=== PATIENT | female | born 1945 | race Caucasian/White ===

== ENCOUNTER 2019-09-18 15:58 | Emergency (ER) | payer MEDICARE, OTHER ==
[~2019-09-18] VITALS: Ht 162.6 cm; Wt 54.4 kg
[2019-09-18] MEDS ORDERED: SODIUM CHLORIDE 0.9% 500 ML IVB ONE (16:17)
[2019-09-18 16:58] LABS: Basophils # (auto) 0 uL; Basophils % (auto) 0.7 % (0.0-2.0); Eosinophils # (auto) 0.1 uL; Eosinophils % (auto) 2.9 % (0.0-7.0); Hematocrit 37.7 % (36.0-46.0); Lymphocytes # (auto) 0.8 uL; Lymphocytes % (auto) 18.9 % (10.0-50.0); Mean Corpuscular Hemoglobin 27.3 pg (28.0-32.0); Mean Corpuscular Hgb Conc. 31.9 g/dL (32.0-36.0); Mean Corpuscular Volume 85.6 fL (80.0-100.0); Monocytes # (auto) 0.2 uL; Monocytes % (auto) 5.8 % (0.0-12.0); Neutrophils # (auto) 2.9 uL; Neutrophils % (auto) 71.7 % (37.0-80.0); Nucleated Red Blood Cells % 0.1 %; Platelet Count (auto) 202 10^3/uL (140-450); Red Cell Distribution Width 14.2 % (11.8-14.3)
[2019-09-18 17:13] LABS: Albumin 2.9 g/dL (3.4-5.0); Anion Gap 6 (5-15); Blood Urea Nitrogen 25 mg/dL (7-18); Calcium 8.5 mg/dL (8.5-10.1); Carbon Dioxide 24 mmol/L (21-32); Chloride 108 mmol/L (98-107); Glucose 338 mg/dL (74-106); Magnesium 2.3 mg/dL (1.6-2.6); Potassium 4.8 mmol/L (3.5-5.1); Sodium 138 mmol/L (136-145)
[2019-09-18 17:14] LABS: INR 1.06 (0.9-1.15); Partial Thromboplastin Time 26.2 sec (23.64-32.05)
[2019-09-18 17:17] LABS: Lactic Acid w/Reflex 3.4 mmol/L (0.4-2.0)
[2019-09-18 17:18] LABS: Alanine Aminotransferase 190 U/L (13-56); Alkaline Phosphatase 325 U/L (45-117); Aspartate Aminotransferase 329 U/L (15-37); BUN/Creatinine Ratio 17.7; Bilirubin, Total 0.6 mg/dL (0.2-1.0); GFR African American 47 mL/min; GFR Non-African American 39 mL/min
[2019-09-18 22:26] VITALS: BP 168/79
== END 2019-09-18 23:02 | disposition short-term general hospital (02) ==
LOC: EDBD 15:58 → ER 16:02
DX: E11.65 Type 2 diabetes mellitus with hyperglycemia (principal); R74.0 Nonspecific elevation of levels of transaminase and lactic acid dehydrogenase [LDH]; R53.1 Weakness; E78.5 Hyperlipidemia, unspecified; I10 Essential (primary) hypertension; R41.82 Altered mental status, unspecified; Z90.710 Acquired absence of both cervix and uterus
CPT/HCPCS: 36415; 70450; 71045; 80053; 82962; 83605; 83735; 84484; 85025; 85610; 85730; 87040; 93005; 96360; 96361; 99285; J7040; 81001

== ENCOUNTER 2020-06-14 14:20 | Emergency (ER) | payer MEDICARE, OTHER ==
[~2020-06-14] VITALS: Ht 152.4 cm; Wt 49.9 kg
[2020-06-14] MEDS ORDERED: SODIUM CHLORIDE 0.9% 1,000 ML IV ONE (14:30)
[2020-06-14] MEDS ORDERED: DexAMETHasone SOD PHOS 10MG/1ML VIAL INJ IV ONE (14:30)
[2020-06-14] MEDS ORDERED: LORazepam 2MG/ML-1ML VIAL IV ONE (15:00)
[2020-06-14] MEDS ORDERED: LORazepam 2MG/ML-1ML VIAL ONE (15:00)
[2020-06-14] MEDS ORDERED: cefTRIAXone 1GM/50ML D5W 50 ML IV ONE (15:00)
[2020-06-14 15:15] VITALS: BP 187/96
[2020-06-14 15:49] LABS: Basophils # (auto) 0 10 ^3/uL (0-0.2); Basophils % (auto) 0.3 % (0.0-2.0); Eosinophils # (auto) 0 10 ^3/uL (0-0.8); Eosinophils % (auto) 0.9 % (0.0-7.0); Hematocrit 42.6 % (36.0-46.0); Hemoglobin 13.6 g/dL (12.2-16.2); Lymphocytes # (auto) 0.9 10 ^3/uL (0.4-5.4); Lymphocytes % (auto) 19.7 % (10.0-50.0); Mean Corpuscular Hemoglobin 25.5 pg (28.0-32.0); Mean Corpuscular Volume 79.5 fL (80.0-100.0); Monocytes # (auto) 0.5 10 ^3/uL (0-1.3); Monocytes % (auto) 10.2 % (0.0-12.0); Neutrophils # (auto) 3.2 10 ^3/uL (1.6-8.6); Neutrophils % (auto) 68.9 % (37.0-80.0); Nucleated Red Blood Cells % 0.2 %; Platelet Count (auto) 207 10^3/uL (140-450); Red Blood Cells 5.35 10^6/uL (4.0-5.20); White Blood Cell 4.6 10^3/uL (4.4-10.8)
[2020-06-14 15:50] LABS: Red Cell Distribution Width 20.4 % (11.8-14.3)
[2020-06-14 16:04] LABS: Albumin 3.4 g/dL (3.4-5.0); Anion Gap 9 (5-15); Blood Urea Nitrogen 19 mg/dL (7-18); Calcium 8.6 mg/dL (8.5-10.1); Carbon Dioxide 24 mmol/L (21-32); Chloride 102 mmol/L (98-107); Glucose 313 mg/dL (74-106); Potassium 3.4 mmol/L (3.5-5.1); Sodium 135 mmol/L (136-145)
[2020-06-14 16:12] LABS: Alanine Aminotransferase 52 U/L (13-56); Alkaline Phosphatase 388 U/L (45-117); Aspartate Aminotransferase 42 U/L (15-37); BUN/Creatinine Ratio 13.5; Bilirubin, Total 1.1 mg/dL (0.2-1.0); CRP High Sensitivity 1.52 mg/dL (< 0.3); GFR African American 47 mL/min; GFR Non-African American 39 mL/min; Lactate Dehydrogenase 398 U/L (84-246); Total Protein 8.2 g/dL (6.4-8.2)
[2020-06-14 16:25] VITALS: BP 187/96
[2020-06-14] MEDS ORDERED: FUROSEMIDE 40 MG/4 ML VIAL IV ONE (16:30)
[2020-06-14] MEDS: LABETALOL HCL 5 MG/ML 4ML SYRINGE IV ONE ×2 (16:30→18:21)
[2020-06-14] MEDS ORDERED: InsuLIN REG 1unit/0.01ml Soln (100units/ml) IV ONE ×2 (16:30→21:00)
[2020-06-14 16:32] LABS: INR 1.13 (0.9-1.15); Partial Thromboplastin Time 25.4 sec (23.0-31.2)
[2020-06-14] MEDS ORDERED: AZITHROMYCIN 500MG/ 250ML 250 ML IV ONE (17:30)
[2020-06-14] MEDS ORDERED: ENOXAPARIN SOD 60 MG/0.6 ML SYRINGE SC ONE (17:30)
[2020-06-14 18:20] VITALS: BP 164/87
[2020-06-14 18:33] LABS: Lactic Acid w/Reflex 3.1 mmol/L (0.4-2.0)
[2020-06-14 18:46] LABS: Urine Bacteria NONE SEEN /hpf (None Seen); Urine Blood Negative /uL (Negative); Urine Specific Gravity 1.011 (1.001-1.035); Urine WBC 1 /hpf (0 - 5)
--- NOTE | 2020-06-14 20:00 | NUR ---
Respiratory note: REMOVED BIPAP OFF PT AND PLACE PT ON 2L NC. HR 65, RR 20, SPO2 99% ON 2L NC. NO S/S OF ANY RESPIRATORY DISTRESS NOTED. RN AWARE. WILL CONTINUE TO MONITOR PT.
[2020-06-14] MEDS ORDERED: ENALAPRILAT 1.25 MG/ML-1ML VIAL IV ONE (21:00)
[2020-06-14 22:30] VITALS: BP 178/81
== END 2020-06-14 23:01 | disposition short-term general hospital (02) ==
LOC: EDBD 14:20 → ER 14:20
DX: R06.03 Acute respiratory distress (principal); J18.9 Pneumonia, unspecified organism; E11.65 Type 2 diabetes mellitus with hyperglycemia; E78.5 Hyperlipidemia, unspecified; I10 Essential (primary) hypertension; Z20.828 Contact with and (suspected) exposure to other viral communicable diseases
CPT/HCPCS: 36415; 36600; 71045; 80053; 81001; 82728; 82805; 82962; 83605; 83615; 83880; 84443; 84484; 85025; 85379; 85610; 85730; 86141; 87040; 87426; 94660; 96365; 96366; 96367; 96372; 96375; 96376; 99291; C9803; J0456; J0696; J1100; J1650; J1815; J1940; J2060; J3490; U0003

== ENCOUNTER 2022-03-07 13:01 | Inpatient (IN) | payer MEDICARE, OTHER ==
[~2022-03-07] VITALS: Ht 160 cm; Wt 52.2 kg
[2022-03-07] MEDS ORDERED: SODIUM CHLORIDE 0.9% 3,000 ML IV ONE (13:15)
[2022-03-07 13:53] LABS: Hemoglobin 13.5 g/dL (12.2-16.2)
[2022-03-07 13:58] LABS: Hematocrit 48.4 % (36.0-46.0); Mean Corpuscular Hemoglobin 27.1 pg (28.0-32.0); Mean Corpuscular Hgb Conc. 27.8 g/dL (32.0-36.0); Mean Corpuscular Volume 97.5 fL (80.0-100.0); Red Blood Cells 4.97 10^6/uL (4.0-5.20); Red Cell Distribution Width 14.3 % (11.8-14.3); White Blood Cell 8.2 10^3/uL (4.4-10.8)
[2022-03-07 14:06] LABS: Basophils % (manual) 0 (0.0-2.0); Blast Cells 0; Eosinophils % (manual) 0 (0-7); Metamyelocytes % 0; Promyelocytes % 0; Reactive Lymphocytes 0
[2022-03-07 14:34] LABS: Lactic Acid w/Reflex 11.9 mmol/L (0.4-2.0)
[2022-03-07 14:38] LABS: Urine Bacteria NONE SEEN /hpf (None Seen); Urine Blood 1+ /uL (Negative); Urine Budding Yeast FEW /hpf (None Seen); Urine Hyaline Cast FEW /lpf (0 - 2); Urine Specific Gravity 1.016 (1.001-1.035); Urine WBC 496 /hpf (0 - 5); Urine WBC Clumps PRESENT /hpf (None Seen)
[2022-03-07] MEDS ORDERED: cefTRIAXone 1GM/50ML D5W 50 ML IV ONE (15:00)
[2022-03-07] MEDS ORDERED: SODIUM CHLORIDE 0.9% 1,000 ML IV ONE ×2 (15:15→17:30)
[2022-03-07] MEDS ORDERED: SODIUM BICARBONATE 8.4 % INJ 50ML VIAL IV ONE (15:30)
[2022-03-07] MEDS ORDERED: SODIUM BICARBONATE 50ML VIAL 50 ML in SODIUM CHLORIDE 0.9% 1,000 ML IV ONE (15:30)
[2022-03-07 15:47] LABS: Band Neutrophils % (manual) 2; Lymphocytes % (manual) 11 (10.0-50.0); Monocytes % (manual) 16 (0-12); Myelocytes % 1
[2022-03-07 16:46] LABS: Potassium 5.7 mmol/L (3.5-5.1)
[2022-03-07 16:47] LABS: BUN/Creatinine Ratio 18.7; Bilirubin, Total 0.4 mg/dL (0.2-1.0); Calcium 7.4 mg/dL (8.5-10.1)
[2022-03-07 16:48] LABS: Albumin 3.3 g/dL (3.4-5.0)
[2022-03-07] MEDS ORDERED: INSULIN LANTUS (GLARGINE) 1 /0.01ml (100units/ml) SC ONE (17:15)
[2022-03-07] MEDS ORDERED: InsuLIN R (HUMAN) 100 UNITS in SODIUM CHL 0.9% 99 ML IV SCH (17:15)
[2022-03-07] MEDS ORDERED: DEXTROSE (50%) 50ML SYRG IV PRN (17:15)
[2022-03-07] MEDS ORDERED: DOCUSATE SOD 100 MG CAP PO PRN (17:30)
[2022-03-07] MEDS ORDERED: ONDANSETRON HCL 4 MG/2 ML VIAL IV PRN (17:30)
[2022-03-07] MEDS: ACCU-CHEK COMFORT CURVE STRIP VI SCH ×4 (17:59→22:41)
[2022-03-07] MEDS ORDERED: AZITHROMYCIN 500MG/ 250ML 250 ML IV ONE (18:15)
[2022-03-07 18:54] LABS: Calcium 7.5 mg/dL (8.5-10.1); Potassium 4.3 mmol/L (3.5-5.1)
[2022-03-07 18:57] LABS: Lactic Acid w/Reflex 4.4 mmol/L (0.4-2.0)
[2022-03-07 19:42] LABS: BUN/Creatinine Ratio 21.4
[2022-03-07 23:53] LABS: Anion Gap 13 (5-15); BUN/Creatinine Ratio 22.2; Blood Urea Nitrogen 38 mg/dL (7-18); Calcium 7.8 mg/dL (8.5-10.1); Carbon Dioxide 22 mmol/L (21-32); Chloride 111 mmol/L (98-107); GFR African American 37 mL/min; GFR Non-African American 31 mL/min; Glucose 346 mg/dL (74-106); Potassium 3.8 mmol/L (3.5-5.1); Sodium 146 mmol/L (136-145)
[2022-03-08] MEDS: ACCU-CHEK COMFORT CURVE STRIP VI SCH ×10 (00:02→21:39)
[2022-03-08 03:01] LABS: Calcium 7.8 mg/dL (8.5-10.1); Potassium 3.6 mmol/L (3.5-5.1)
[2022-03-08 07:07] LABS: Calcium 7.7 mg/dL (8.5-10.1); Potassium 3.5 mmol/L (3.5-5.1)
[2022-03-08 07:09] LABS: BUN/Creatinine Ratio 26.6
[2022-03-08] MEDS ORDERED: DEXTROSE (50%) 50ML SYRG IV PRN (10:45)
[2022-03-08 10:48] LABS: BUN/Creatinine Ratio 22.9; Potassium 3.8 mmol/L (3.5-5.1)
[2022-03-08 10:49] LABS: Calcium 7.8 mg/dL (8.5-10.1)
[2022-03-08] MEDS: INSULIN LANTUS (GLARGINE) 1 /0.01ml (100units/ml) SC SCH (11:12)
[2022-03-08] MEDS ORDERED: InsuLIN REG 1unit/0.01ml Soln (100units/ml) SC SCH ×2 (11:30)
[2022-03-08] MEDS ORDERED: cefTRIAXone 1GM/50ML D5W 50 ML IV ONE (12:00)
[2022-03-08] MEDS: InsuLIN REG 1unit/0.01ml Soln (100units/ml) SC SCH ×3 (12:38→21:42)
[2022-03-08 15:57] VITALS: BP 165/72
[2022-03-08] MEDS ORDERED: METO25TA5 PO (16:15)
[2022-03-08] MEDS ORDERED: LOS25T PO (16:15)
[2022-03-08] MEDS ORDERED: ATOR40TA52 PO (16:15)
[2022-03-08] MEDS ORDERED: FURO40TA4 PO (16:15)
[2022-03-08] MEDS ORDERED: LEVO137T3 PO (16:15)
[2022-03-08] MEDS ORDERED: GLUC-244 (16:15)
[2022-03-08] MEDS ORDERED: GABA300C10 PO (16:15)
[2022-03-08] MEDS ORDERED: INSU100I4 SC (16:15)
[2022-03-08] MEDS ORDERED: INSLANTI SC (16:15)
[2022-03-08] MEDS ORDERED: LISI20TA28 PO (16:15)
[2022-03-08] MEDS ORDERED: AMLO-496 PO (16:15)
[2022-03-08] MEDS ORDERED: MET25T PO (16:15)
[2022-03-08 16:58] VITALS: BP 162/68
[2022-03-08] MEDS: hydrALAZINE HCL 20 MG/ML VL IV PRN (21:39)
[2022-03-08 22:00] VITALS: BP 200/84
[2022-03-09 05:32] VITALS: BP 187/72
[2022-03-09] MEDS: hydrALAZINE HCL 20 MG/ML VL IV PRN ×3 (05:34→18:32)
[2022-03-09 06:18] LABS: BUN/Creatinine Ratio 18.7; Calcium 8.7 mg/dL (8.5-10.1); Potassium 3.6 mmol/L (3.5-5.1)
[2022-03-09] MEDS: ACCU-CHEK COMFORT CURVE STRIP VI SCH ×4 (06:32→22:25)
[2022-03-09] MEDS: InsuLIN REG 1unit/0.01ml Soln (100units/ml) SC SCH ×4 (06:35→22:26)
[2022-03-09 06:45] LABS: Basophils # (auto) 0 10 ^3/uL (0-0.2); Basophils % (auto) 0.1 % (0.0-2.0); Eosinophils # (auto) 0 10 ^3/uL (0-0.8); Hematocrit 44.7 % (36.0-46.0); Hemoglobin 14.5 g/dL (12.2-16.2); Lymphocytes # (auto) 1.4 10 ^3/uL (0.4-5.4); Lymphocytes % (auto) 16.3 % (10.0-50.0); Mean Corpuscular Hemoglobin 27.4 pg (28.0-32.0); Mean Corpuscular Hgb Conc. 32.4 g/dL (32.0-36.0); Mean Corpuscular Volume 84.7 fL (80.0-100.0); Monocytes # (auto) 0.5 10 ^3/uL (0-1.3); Monocytes % (auto) 5.5 % (0.0-12.0); Neutrophils # (auto) 6.7 10 ^3/uL (1.6-8.6); Neutrophils % (auto) 78.1 % (37.0-80.0); Red Blood Cells 5.27 10^6/uL (4.0-5.20); Red Cell Distribution Width 13.5 % (11.8-14.3); White Blood Cell 8.6 10^3/uL (4.4-10.8)
[2022-03-09 08:00] VITALS: BP 145/88
[2022-03-09] MEDS: cefTRIAXone 1GM/50ML D5W 50 ML IV SCH (09:51)
[2022-03-09 12:00] VITALS: BP 176/60
[2022-03-09] MEDS: INSULIN LANTUS (GLARGINE) 1 /0.01ml (100units/ml) SC SCH (12:13)
[2022-03-09 16:00] VITALS: BP 171/69
[2022-03-09 22:00] VITALS: BP 174/66
[2022-03-09] MEDS: ATORVASTATIN 20 MG TAB PO SCH (22:25)
[2022-03-09] MEDS: METOPROLOL TARTRATE 25 MG TAB PO SCH (22:26)
[2022-03-10 05:00] VITALS: BP 165/65
[2022-03-10] MEDS: hydrALAZINE HCL 20 MG/ML VL IV PRN (05:17)
[2022-03-10 06:50] LABS: Basophils # (auto) 0 10 ^3/uL (0-0.2); Eosinophils # (auto) 0 10 ^3/uL (0-0.8); Eosinophils % (auto) 0.1 % (0.0-7.0); Hemoglobin 12.4 g/dL (12.2-16.2); Lymphocytes # (auto) 0.9 10 ^3/uL (0.4-5.4); Mean Corpuscular Hemoglobin 26.8 pg (28.0-32.0); Monocytes # (auto) 0.4 10 ^3/uL (0-1.3); Monocytes % (auto) 8.6 % (0.0-12.0); Red Blood Cells 4.63 10^6/uL (4.0-5.20)
[2022-03-10 06:53] LABS: Basophils % (auto) 0.2 % (0.0-2.0); Mean Corpuscular Hgb Conc. 32.7 g/dL (32.0-36.0); Mean Corpuscular Volume 81.9 fL (80.0-100.0); Neutrophils # (auto) 3.2 10 ^3/uL (1.6-8.6); Neutrophils % (auto) 72.1 % (37.0-80.0); Nucleated Red Blood Cells % 0.1 %; White Blood Cell 4.5 10^3/uL (4.4-10.8)
[2022-03-10] MEDS: LEVOTHYROXINE SODIUM 25 MCG TAB PO SCH (06:56)
[2022-03-10] MEDS: ACCU-CHEK COMFORT CURVE STRIP VI SCH ×4 (06:56→22:23)
[2022-03-10] MEDS: LEVOTHYROXINE SODIUM 112 MCG TAB PO SCH (06:56)
[2022-03-10] MEDS: InsuLIN REG 1unit/0.01ml Soln (100units/ml) SC SCH ×4 (06:57→22:25)
[2022-03-10 07:06] LABS: Potassium 3.4 mmol/L (3.5-5.1)
[2022-03-10 07:15] LABS: BUN/Creatinine Ratio 20.3
[2022-03-10 07:16] LABS: Calcium 8.5 mg/dL (8.5-10.1)
[2022-03-10 08:00] VITALS: BP 166/68
[2022-03-10] MEDS: cefTRIAXone 1GM/50ML D5W 50 ML IV SCH (08:34)
[2022-03-10 09:00] VITALS: BP 166/68
[2022-03-10] MEDS: FUROSEMIDE 40 MG TAB PO SCH (09:12)
[2022-03-10] MEDS: GABAPENTIN 300 MG CAP PO SCH (09:13)
[2022-03-10] MEDS: METOPROLOL TARTRATE 25 MG TAB PO SCH ×2 (09:13→22:23)
[2022-03-10] MEDS: amLODIPine BESYLATE 5 MG TAB PO SCH (09:14)
[2022-03-10] MEDS ORDERED: METOPROLOL TARTRATE 25 MG TAB PO SCH (10:00)
[2022-03-10] MEDS: INSULIN LANTUS (GLARGINE) 1 /0.01ml (100units/ml) SC SCH (11:43)
[2022-03-10 13:07] VITALS: BP 168/69
[2022-03-10 17:06] VITALS: BP 141/66
[2022-03-10 22:06] VITALS: BP 140/66
[2022-03-10] MEDS: ATORVASTATIN 20 MG TAB PO SCH (22:22)
[2022-03-11 05:05] VITALS: BP 129/63
[2022-03-11] MEDS: LEVOTHYROXINE SODIUM 25 MCG TAB PO SCH (06:55)
[2022-03-11] MEDS: LEVOTHYROXINE SODIUM 112 MCG TAB PO SCH (06:55)
[2022-03-11] MEDS: InsuLIN REG 1unit/0.01ml Soln (100units/ml) SC SCH ×4 (06:56→22:07)
[2022-03-11] MEDS: ACCU-CHEK COMFORT CURVE STRIP VI SCH ×4 (06:56→22:06)
[2022-03-11 09:00] VITALS: BP 130/59
[2022-03-11] MEDS: GABAPENTIN 300 MG CAP PO SCH (10:00)
[2022-03-11] MEDS: cefTRIAXone 1GM/50ML D5W 50 ML IV SCH (10:23)
[2022-03-11] MEDS: METOPROLOL TARTRATE 25 MG TAB PO SCH ×2 (10:30→22:06)
[2022-03-11] MEDS: amLODIPine BESYLATE 5 MG TAB PO SCH (10:31)
[2022-03-11] MEDS: FUROSEMIDE 40 MG TAB PO SCH (10:34)
[2022-03-11] MEDS: INSULIN LANTUS (GLARGINE) 1 /0.01ml (100units/ml) SC SCH ×2 (11:38→22:07)
[2022-03-11 13:00] VITALS: BP 130/67
[2022-03-11] MEDS ORDERED: INSULIN LANTUS (GLARGINE) 1 /0.01ml (100units/ml) SC ONE (13:45)
[2022-03-11] MEDS: ACETAMINOPHEN 325 MG TAB PO PRN (16:59)
[2022-03-11 17:00] VITALS: BP 117/53
[2022-03-11 22:00] VITALS: BP 127/60
[2022-03-11] MEDS: ATORVASTATIN 20 MG TAB PO SCH (22:05)
[2022-03-11] MEDS: FAMOTIDINE 20 MG TAB PO SCH (22:06)
[2022-03-12 05:00] VITALS: BP 145/69
[2022-03-12 05:25] LABS: Basophils # (auto) 0 10 ^3/uL (0-0.2); Basophils % (auto) 0.2 % (0.0-2.0); Eosinophils # (auto) 0 10 ^3/uL (0-0.8); Hematocrit 37.2 % (36.0-46.0); Hemoglobin 12.2 g/dL (12.2-16.2); Lymphocytes # (auto) 0.6 10 ^3/uL (0.4-5.4); Monocytes # (auto) 0.4 10 ^3/uL (0-1.3)
[2022-03-12 05:28] LABS: Eosinophils % (auto) 1.2 % (0.0-7.0); Lymphocytes % (auto) 21.2 % (10.0-50.0); Mean Corpuscular Hgb Conc. 32.8 g/dL (32.0-36.0); Mean Corpuscular Volume 82.2 fL (80.0-100.0); Monocytes % (auto) 12.1 % (0.0-12.0); Neutrophils % (auto) 65.3 % (37.0-80.0); Nucleated Red Blood Cells % 0.1 %; Red Blood Cells 4.52 10^6/uL (4.0-5.20); Red Cell Distribution Width 12.8 % (11.8-14.3)
[2022-03-12] MEDS: LEVOTHYROXINE SODIUM 112 MCG TAB PO SCH (06:19)
[2022-03-12] MEDS: ACCU-CHEK COMFORT CURVE STRIP VI SCH ×4 (06:19→22:08)
[2022-03-12] MEDS: LEVOTHYROXINE SODIUM 25 MCG TAB PO SCH (06:19)
[2022-03-12] MEDS: InsuLIN REG 1unit/0.01ml Soln (100units/ml) SC SCH ×4 (06:19→22:09)
[2022-03-12 09:11] VITALS: BP 142/71
[2022-03-12] MEDS: INSULIN LANTUS (GLARGINE) 1 /0.01ml (100units/ml) SC SCH ×2 (09:31→22:08)
[2022-03-12] MEDS: ENOXAPARIN SOD 40 MG/0.4 ML SYRINGE SC SCH (09:32)
[2022-03-12] MEDS: GABAPENTIN 300 MG CAP PO SCH (09:36)
[2022-03-12] MEDS: amLODIPine BESYLATE 5 MG TAB PO SCH (09:37)
[2022-03-12] MEDS: CHOLECALCIFEROL (VITD3) 1,000UNIT=25mCg TAB PO SCH (09:37)
[2022-03-12] MEDS: ZINC SULFATE 220mg CAP or TAB PO SCH (09:39)
[2022-03-12] MEDS: FUROSEMIDE 40 MG TAB PO SCH (09:39)
[2022-03-12] MEDS: ASCORBIC ACID 500 MG TAB PO SCH (09:39)
[2022-03-12] MEDS: cefTRIAXone 1GM/50ML D5W 50 ML IV SCH ×2 (09:40→12:20)
[2022-03-12] MEDS: METOPROLOL TARTRATE 25 MG TAB PO SCH ×2 (09:40→22:07)
[2022-03-12 13:00] VITALS: BP 141/64
[2022-03-12] MEDS: ACETAMINOPHEN 325 MG TAB PO PRN ×2 (15:40→22:10)
[2022-03-12 17:10] VITALS: BP 120/58
[2022-03-12 22:00] VITALS: BP 137/65
[2022-03-12] MEDS: ATORVASTATIN 20 MG TAB PO SCH (22:07)
[2022-03-12] MEDS: FAMOTIDINE 20 MG TAB PO SCH (22:07)
[2022-03-13 05:00] VITALS: BP 128/67
[2022-03-13 05:41] LABS: Albumin 2.9 g/dL (3.4-5.0); BUN/Creatinine Ratio 18.8; Calcium 8.9 mg/dL (8.5-10.1); Potassium 3.7 mmol/L (3.5-5.1)
[2022-03-13 05:47] LABS: Hematocrit 38.4 % (36.0-46.0); Hemoglobin 12.7 g/dL (12.2-16.2); Mean Corpuscular Hemoglobin 27.1 pg (28.0-32.0); Mean Corpuscular Volume 82.1 fL (80.0-100.0); Red Blood Cells 4.68 10^6/uL (4.0-5.20); Red Cell Distribution Width 12.9 % (11.8-14.3); White Blood Cell 2.3 10^3/uL (4.4-10.8)
[2022-03-13 05:53] LABS: Band Neutrophils % (manual) 0; Basophils % (manual) 0 (0.0-2.0); Blast Cells 0; Metamyelocytes % 0; Myelocytes % 0; Promyelocytes % 0; Reactive Lymphocytes 0
[2022-03-13] MEDS: LEVOTHYROXINE SODIUM 112 MCG TAB PO SCH (06:39)
[2022-03-13] MEDS: ACCU-CHEK COMFORT CURVE STRIP VI SCH ×2 (06:40→11:24)
[2022-03-13] MEDS: LEVOTHYROXINE SODIUM 25 MCG TAB PO SCH (06:40)
[2022-03-13] MEDS: InsuLIN REG 1unit/0.01ml Soln (100units/ml) SC SCH ×2 (06:40→11:25)
[2022-03-13 08:00] VITALS: BP 148/70
[2022-03-13 08:31] LABS: Eosinophils % (manual) 1 (0-7); Lymphocytes % (manual) 24 (10.0-50.0); Monocytes % (manual) 18 (0-12)
[2022-03-13] MEDS: CHOLECALCIFEROL (VITD3) 1,000UNIT=25mCg TAB PO SCH (09:39)
[2022-03-13] MEDS: cefTRIAXone 1GM/50ML D5W 50 ML IV SCH (09:39)
[2022-03-13] MEDS: ENOXAPARIN SOD 40 MG/0.4 ML SYRINGE SC SCH (09:39)
[2022-03-13] MEDS: ZINC SULFATE 220mg CAP or TAB PO SCH (09:40)
[2022-03-13] MEDS: METOPROLOL TARTRATE 25 MG TAB PO SCH (09:40)
[2022-03-13] MEDS: FUROSEMIDE 40 MG TAB PO SCH (09:41)
[2022-03-13] MEDS: ASCORBIC ACID 500 MG TAB PO SCH (09:41)
[2022-03-13] MEDS: amLODIPine BESYLATE 5 MG TAB PO SCH (09:41)
[2022-03-13] MEDS: INSULIN LANTUS (GLARGINE) 1 /0.01ml (100units/ml) SC SCH (09:49)
[2022-03-13 12:00] VITALS: BP 135/63
[2022-03-13 12:08] VITALS: BP 148/70
== END 2022-03-13 14:35 | disposition home health service (06) | DRG 637 ==
LOC: ER 13:01 → TELE 17:21 → DOU IN ICU 23:53 → ICU CENTRL 23:54 → OVERFLOW 03-08 00:23 → TELE-EAST 03-08 14:50
PROVIDERS: ADMIT Internal Medicine; ATTEND Internal Medicine Pulmonary Disease
DX: E11.10 Type 2 diabetes mellitus with ketoacidosis without coma (principal); G93.41 Metabolic encephalopathy; U07.1 COVID-19; E44.1 Mild protein-calorie malnutrition; N12 Tubulo-interstitial nephritis, not specified as acute or chronic; I16.0 Hypertensive urgency; I10 Essential (primary) hypertension; E78.5 Hyperlipidemia, unspecified; Z82.0 Family history of epilepsy and other diseases of the nervous system; Z83.3 Family history of diabetes mellitus; Z90.710 Acquired absence of both cervix and uterus; Z88.0 Allergy status to penicillin; Z68.20 Body mass index [BMI] 20.0-20.9, adult; Z79.4 Long term (current) use of insulin
CPT/HCPCS: 36415; 36600; 71045; 80048; 80053; 80069; 81001; 82010; 82607; 82805; 82962; 83036; 83605; 84443; 85007; 85025; 85027; 87040; 87086; 93005; 96361; 96365; 96375; 99291; G0378; J0696; J1815; J2405

== ENCOUNTER 2022-03-27 12:02 | Inpatient (IN) | payer MEDICARE, OTHER ==
[~2022-03-27] VITALS: Ht 154.9 cm; Wt 53.7 kg
[~2022-03-27 12:02] MED LIST: AMLO-496 PO; ATOR40TA52 PO; FURO40TA4 PO; GLUC-244; INSLANTI SC; INSU100I4 SC; LEVO137T3 PO; LISI20TA28 PO; LOS25T PO; MET25T PO
[2022-03-27] MEDS ORDERED: SODIUM CHLORIDE 0.9% 1,000 ML IVB ONE (12:15)
[2022-03-27] MEDS ORDERED: InsuLIN REG 1unit/0.01ml Soln (100units/ml) IV ONE (12:15)
[2022-03-27] MEDS ORDERED: ONDANSETRON HCL 4 MG/2 ML VIAL IV ONE (12:15)
[2022-03-27] MEDS ORDERED: INSULIN LANTUS (GLARGINE) 1 /0.01ml (100units/ml) SC ONE (13:30)
[2022-03-27] MEDS ORDERED: InsuLIN R (HUMAN) 100 UNITS in SODIUM CHL 0.9% 99 ML IV SCH (13:30)
[2022-03-27] MEDS ORDERED: DEXTROSE (50%) 50ML SYRG IV PRN (13:30)
[2022-03-27 14:02] LABS: Basophils # (auto) 0 10 ^3/uL (0-0.2); Eosinophils # (auto) 0 10 ^3/uL (0-0.8); Hemoglobin 10.8 g/dL (12.2-16.2); Monocytes # (auto) 0.9 10 ^3/uL (0-1.3); White Blood Cell 8.5 10^3/uL (4.4-10.8)
[2022-03-27 14:04] LABS: Basophils % (auto) 0.1 % (0.0-2.0); Hematocrit 34.7 % (36.0-46.0); Lymphocytes # (auto) 0.4 10 ^3/uL (0.4-5.4); Lymphocytes % (auto) 4.6 % (10.0-50.0); Mean Corpuscular Hemoglobin 27.1 pg (28.0-32.0); Mean Corpuscular Hgb Conc. 31.1 g/dL (32.0-36.0); Mean Corpuscular Volume 87.3 fL (80.0-100.0); Monocytes % (auto) 10.3 % (0.0-12.0); Neutrophils # (auto) 7.2 10 ^3/uL (1.6-8.6); Red Blood Cells 3.97 10^6/uL (4.0-5.20)
[2022-03-27 14:15] LABS: Albumin 3.3 g/dL (3.4-5.0); BUN/Creatinine Ratio 20.5; Calcium 8.6 mg/dL (8.5-10.1); Potassium 4.7 mmol/L (3.5-5.1)
[2022-03-27 14:17] LABS: Bilirubin, Total 0.8 mg/dL (0.2-1.0); Lactic Acid w/Reflex 4.6 mmol/L (0.4-2.0); Total Protein 7.2 g/dL (6.4-8.2)
[2022-03-27] MEDS: ACCU-CHEK COMFORT CURVE STRIP VI SCH ×7 (14:28→22:53)
[2022-03-27] MEDS ORDERED: HYDROcodone-ACET 5/325MG TAB PO PRN (15:30)
[2022-03-27] MEDS ORDERED: HYDROmorphone HCL 2 MG/ML VL/or syr IV PRN (15:30)
[2022-03-27] MEDS ORDERED: ONDANSETRON HCL 4 MG/2 ML VIAL IV PRN (15:30)
[2022-03-27] MEDS ORDERED: LACTATED RINGER'S 1,000 ML IV ONE (15:30)
[2022-03-27] MEDS ORDERED: ACETAMINOPHEN 325 MG TAB PO PRN (15:30)
[2022-03-27] MEDS ORDERED: DOCUSATE SOD 100 MG CAP PO PRN (15:30)
[2022-03-27] MEDS: PANTOPRAZOLE 40 MG/10 ML VIAL INJ IV SCH (15:56)
[2022-03-27 19:51] LABS: BUN/Creatinine Ratio 24.8; Calcium 8.7 mg/dL (8.5-10.1)
[2022-03-27] MEDS ORDERED: METOPROLOL TARTRATE 25 MG TAB PO SCH (22:00)
[2022-03-27] MEDS: SODIUM CHLOR 0.9% PF (SALINE LOCK) 10ML VIAL/SYR IV SCH (22:00)
[2022-03-27] MEDS: ATORVASTATIN 20 MG TAB PO SCH (22:59)
[2022-03-27 23:36] LABS: BUN/Creatinine Ratio 26.7; Calcium 8.6 mg/dL (8.5-10.1); Potassium 3.9 mmol/L (3.5-5.1)
[2022-03-28] MEDS: ACCU-CHEK COMFORT CURVE STRIP VI SCH ×7 (00:34→20:27)
[2022-03-28] MEDS ORDERED: DEXTROSE (50%) 50ML SYRG IV PRN (03:00)
[2022-03-28 03:55] LABS: BUN/Creatinine Ratio 27.4; Calcium 8.4 mg/dL (8.5-10.1); Potassium 3.8 mmol/L (3.5-5.1)
[2022-03-28] MEDS: InsuLIN REG 1unit/0.01ml Soln (100units/ml) SC SCH ×5 (04:00→20:29)
[2022-03-28] MEDS: SODIUM CHLOR 0.9% PF (SALINE LOCK) 10ML VIAL/SYR IV SCH ×3 (06:04→21:43)
[2022-03-28] MEDS: LEVOTHYROXINE SODIUM 25 MCG TAB PO SCH (06:44)
[2022-03-28] MEDS: LEVOTHYROXINE SODIUM 112 MCG TAB PO SCH (06:45)
[2022-03-28 09:50] LABS: BUN/Creatinine Ratio 24.4; Calcium 8.6 mg/dL (8.5-10.1)
[2022-03-28 10:00] VITALS: BP 155/68
[2022-03-28] MEDS ORDERED: LISINOPRIL 20 MG TAB PO SCH (10:00)
[2022-03-28] MEDS ORDERED: FUROSEMIDE 40 MG TAB PO SCH (10:00)
[2022-03-28] MEDS: PANTOPRAZOLE 40 MG/10 ML VIAL INJ IV SCH (10:08)
[2022-03-28] MEDS: ENOXAPARIN SOD 30 MG/0.3 ML SYRINGE SC SCH (10:09)
[2022-03-28] MEDS: amLODIPine BESYLATE 5 MG TAB PO SCH (10:09)
[2022-03-28] MEDS: INSULIN LANTUS (GLARGINE) 1 /0.01ml (100units/ml) SC SCH (10:11)
[2022-03-28 12:18] VITALS: BP 155/68
[2022-03-28] MEDS: LOSARTAN POTASSIUM 25 MG TAB PO SCH (12:23)
[2022-03-28 13:00] VITALS: BP 120/58
[2022-03-28 16:43] VITALS: BP 127/52
[2022-03-28] MEDS: ATORVASTATIN 20 MG TAB PO SCH (21:43)
[2022-03-28 22:00] VITALS: BP 138/54
[2022-03-29] MEDS: ACCU-CHEK COMFORT CURVE STRIP VI SCH ×7 (00:51→23:29)
[2022-03-29] MEDS: SODIUM CHLORIDE 0.9% 1,000 ML IV SCH ×2 (00:52→11:45)
[2022-03-29] MEDS: InsuLIN REG 1unit/0.01ml Soln (100units/ml) SC SCH ×7 (03:52→23:29)
[2022-03-29 05:00] VITALS: BP 138/61
[2022-03-29] MEDS: SODIUM CHLOR 0.9% PF (SALINE LOCK) 10ML VIAL/SYR IV SCH ×3 (05:26→21:03)
[2022-03-29] MEDS: LEVOTHYROXINE SODIUM 112 MCG TAB PO SCH (05:26)
[2022-03-29] MEDS: LEVOTHYROXINE SODIUM 25 MCG TAB PO SCH (05:26)
[2022-03-29 08:00] VITALS: BP 164/63
[2022-03-29 09:00] VITALS: BP 159/65
[2022-03-29] MEDS: LOSARTAN POTASSIUM 25 MG TAB PO SCH ×2 (10:00→21:08)
[2022-03-29] MEDS: PANTOPRAZOLE 40 MG/10 ML VIAL INJ IV SCH (10:39)
[2022-03-29] MEDS: ENOXAPARIN SOD 30 MG/0.3 ML SYRINGE SC SCH (10:46)
[2022-03-29] MEDS: amLODIPine BESYLATE 5 MG TAB PO SCH (10:47)
[2022-03-29] MEDS: INSULIN LANTUS (GLARGINE) 1 /0.01ml (100units/ml) SC SCH (10:48)
[2022-03-29 13:00] VITALS: BP 164/65
[2022-03-29 17:00] VITALS: BP 134/51
[2022-03-29] MEDS ORDERED: SODIUM CHLORIDE 0.9% 1,000 ML IV SCH (20:15)
[2022-03-29] MEDS: ATORVASTATIN 20 MG TAB PO SCH (21:03)
[2022-03-29 22:00] VITALS: BP 155/61
[2022-03-30 00:29] VITALS: BP 149/51
[2022-03-30] MEDS: ACCU-CHEK COMFORT CURVE STRIP VI SCH ×4 (04:03→16:23)
[2022-03-30] MEDS: InsuLIN REG 1unit/0.01ml Soln (100units/ml) SC SCH ×4 (04:04→16:00)
[2022-03-30 05:00] VITALS: BP 159/64
[2022-03-30 05:47] LABS: BUN/Creatinine Ratio 19.5; Calcium 8.3 mg/dL (8.5-10.1)
[2022-03-30] MEDS: LEVOTHYROXINE SODIUM 112 MCG TAB PO SCH (06:56)
[2022-03-30] MEDS: LEVOTHYROXINE SODIUM 25 MCG TAB PO SCH (06:56)
[2022-03-30] MEDS: SODIUM CHLOR 0.9% PF (SALINE LOCK) 10ML VIAL/SYR IV SCH ×2 (06:56→16:23)
[2022-03-30 08:00] VITALS: BP 152/86
[2022-03-30 09:28] VITALS: BP 149/79
[2022-03-30] MEDS: PANTOPRAZOLE 40 MG/10 ML VIAL INJ IV SCH (10:34)
[2022-03-30] MEDS: ENOXAPARIN SOD 30 MG/0.3 ML SYRINGE SC SCH (10:41)
[2022-03-30] MEDS: amLODIPine BESYLATE 5 MG TAB PO SCH (10:41)
[2022-03-30] MEDS: INSULIN LANTUS (GLARGINE) 1 /0.01ml (100units/ml) SC SCH (10:42)
[2022-03-30] MEDS: LOSARTAN POTASSIUM 25 MG TAB PO SCH (10:50)
[2022-03-30] MEDS ORDERED: INSLANTI SC (12:24)
[2022-03-30 13:00] VITALS: BP 152/86
[2022-03-30 14:18] VITALS: BP 149/79
[2022-03-31] MEDS ORDERED: ENOXAPARIN SOD 40 MG/0.4 ML SYRINGE SC SCH (10:00)
== END 2022-03-30 16:18 | disposition still patient (30) | DRG 637 ==
LOC: ER 12:02 → TELE 15:23 → TELE-WESTW 03-28 08:10
PROVIDERS: ADMIT Internal Medicine; ATTEND Internal Medicine Nephrology
DX: E11.10 Type 2 diabetes mellitus with ketoacidosis without coma (principal); N17.0 Acute kidney failure with tubular necrosis; I13.0 Hypertensive heart and chronic kidney disease with heart failure and stage 1 through stage 4 chronic kidney disease, or unspecified chronic kidney disease; E11.22 Type 2 diabetes mellitus with diabetic chronic kidney disease; E78.5 Hyperlipidemia, unspecified; I50.9 Heart failure, unspecified; Z20.822 Contact with and (suspected) exposure to COVID-19; N18.31 Chronic kidney disease, stage 3a; Z79.4 Long term (current) use of insulin; Z80.9 Family history of malignant neoplasm, unspecified; Z83.3 Family history of diabetes mellitus; Z86.16 Personal history of COVID-19; Z86.73 Personal history of transient ischemic attack (TIA), and cerebral infarction without residual deficits; Z90.710 Acquired absence of both cervix and uterus
CPT/HCPCS: 36415; 36600; 74176; 80048; 80053; 82010; 82805; 82962; 83605; 83690; 84439; 84443; 85025; 87040; 93005; 96365; 96366; 96372; 96375; 99291; C9113; G0378; J1815; J2405

== ENCOUNTER 2022-05-18 15:25 | Inpatient (IN) | payer MEDICARE, OTHER ==
[~2022-05-18] VITALS: Ht 157.5 cm; Wt 52.1 kg
[2022-05-18] MEDS: ACCU-CHEK COMFORT CURVE STRIP VI SCH (12:50)
[~2022-05-18 15:25] MED LIST changes: -LISI20TA28 PO
[2022-05-18] MEDS ORDERED: DEXTROSE 50% SYRINGE 50 ML IV ONE (15:28)
[2022-05-18] MEDS ORDERED: DEXTROSE (50%) 50ML SYRG IV ONE (16:00)
[2022-05-18 16:25] LABS: Urine Bacteria NONE SEEN /hpf (None Seen); Urine Blood Negative /uL (Negative); Urine Hyaline Cast FEW /lpf (0 - 2); Urine Specific Gravity 1.011 (1.001-1.035); Urine WBC <1 /hpf (0 - 5)
[2022-05-18 16:35] LABS: Alcohol, Urine < 3.0 mg/dL (0-10); Amphetamine Screen, Urine NEGATIVE (NEGATIVE); Barbiturate Scree,Urine NEGATIVE (NEGATIVE); Benzodiazephine Screen, Urine NEGATIVE (NEGATIVE); Cannabinoid Screen, Urine NEGATIVE (NEGATIVE); Cocaine Screen, Urine NEGATIVE (NEGATIVE); Opiate Scree,Urine NEGATIVE (NEGATIVE); Phencyclidine Screen, Urine NEGATIVE (NEGATIVE)
[2022-05-18] MEDS ORDERED: IOHEXOL 350 MG/ML 100ML IJ ONE (17:02)
[2022-05-18 17:12] LABS: Basophils # (auto) 0 10 ^3/uL (0-0.2); Basophils % (auto) 0.5 % (0.0-2.0); Eosinophils # (auto) 0.1 10 ^3/uL (0-0.8); Eosinophils % (auto) 2.5 % (0.0-7.0); Hematocrit 42.3 % (36.0-46.0); Hemoglobin 13.7 g/dL (12.2-16.2); Lymphocytes # (auto) 1.4 10 ^3/uL (0.4-5.4); Lymphocytes % (auto) 30.6 % (10.0-50.0); Mean Corpuscular Hemoglobin 27.4 pg (28.0-32.0); Mean Corpuscular Hgb Conc. 32.5 g/dL (32.0-36.0); Mean Corpuscular Volume 84.3 fL (80.0-100.0); Monocytes # (auto) 0.5 10 ^3/uL (0-1.3); Monocytes % (auto) 11.3 % (0.0-12.0); Neutrophils # (auto) 2.5 10 ^3/uL (1.6-8.6); Neutrophils % (auto) 55.1 % (37.0-80.0); Nucleated Red Blood Cells % 0.1 %; Red Blood Cells 5.01 10^6/uL (4.0-5.20); Red Cell Distribution Width 14.1 % (11.8-14.3); White Blood Cell 4.5 10^3/uL (4.4-10.8)
[2022-05-18 17:29] LABS: Alanine Aminotransferase 44 U/L (13-56); Albumin 4.5 g/dL (3.4-5.0); Anion Gap 8 (5-15); Aspartate Aminotransferase 27 U/L (15-37); Blood Alcohol < 3.0 mg/dL (0-5); Blood Urea Nitrogen 24 mg/dL (7-18); Calcium 10.3 mg/dL (8.5-10.1); Carbon Dioxide 24 mmol/L (21-32); Chloride 107 mmol/L (98-107); GFR African American 69 mL/min; GFR Non-African American 57 mL/min; Sodium 139 mmol/L (136-145)
[2022-05-18 17:32] LABS: Alkaline Phosphatase 133 U/L (45-117); Bilirubin, Total 0.4 mg/dL (0.2-1.0)
[2022-05-18 17:39] LABS: Glucose 39 mg/dL (74-106); Potassium 2.9 mmol/L (3.5-5.1)
[2022-05-18] MEDS ORDERED: DEXTROSE (50%) 50ML SYRG IV PRN ×2 (19:00→20:45)
[2022-05-18] MEDS ORDERED: ACCU-CHEK COMFORT CURVE STRIP VI ONE (19:00)
[2022-05-18] MEDS ORDERED: DEXTROSE 10% 1,000 ML IV SCH (19:15)
[2022-05-18] MEDS ORDERED: ASPirin 325 MG TAB PO ONE (20:00)
[2022-05-18] MEDS: CARVEDILOL 3.125 MG TAB PO SCH (22:00)
[2022-05-19] MEDS: InsuLIN REG 1unit/0.01ml Soln (100units/ml) SC SCH ×3 (01:25→12:03)
[2022-05-19] MEDS: DEXTROSE 10% 1,000 ML IV SCH ×2 (03:11→23:02)
[2022-05-19] MEDS: ACCU-CHEK COMFORT CURVE STRIP VI SCH ×2 (06:28→12:03)
[2022-05-19 06:58] LABS: Basophils # (auto) 0 10 ^3/uL (0-0.2); Eosinophils # (auto) 0.1 10 ^3/uL (0-0.8); Monocytes # (auto) 0.3 10 ^3/uL (0-1.3); Neutrophils # (auto) 2.1 10 ^3/uL (1.6-8.6); White Blood Cell 3.4 10^3/uL (4.4-10.8)
[2022-05-19 07:00] LABS: Basophils % (auto) 0.4 % (0.0-2.0); Eosinophils % (auto) 2.2 % (0.0-7.0); Hematocrit 37.9 % (36.0-46.0); Hemoglobin 12.4 g/dL (12.2-16.2); Lymphocytes # (auto) 0.9 10 ^3/uL (0.4-5.4); Lymphocytes % (auto) 27.8 % (10.0-50.0); Mean Corpuscular Hemoglobin 27.1 pg (28.0-32.0); Mean Corpuscular Hgb Conc. 32.8 g/dL (32.0-36.0); Mean Corpuscular Volume 82.7 fL (80.0-100.0); Monocytes % (auto) 9.1 % (0.0-12.0); Neutrophils % (auto) 60.5 % (37.0-80.0); Nucleated Red Blood Cells % 0.1 %; Red Blood Cells 4.59 10^6/uL (4.0-5.20)
[2022-05-19 07:16] LABS: Calcium 9.1 mg/dL (8.5-10.1); Potassium 3.4 mmol/L (3.5-5.1)
[2022-05-19 07:19] LABS: BUN/Creatinine Ratio 22.4
[2022-05-19] MEDS: LEVOTHYROXINE SODIUM 50 MCG TAB PO SCH (08:30)
[2022-05-19] MEDS ORDERED: BENAZEPRIL HCL 10 MG TAB PO SCH (10:00)
[2022-05-19] MEDS: ENOXAPARIN SOD 40 MG/0.4 ML SYRINGE SC SCH (10:22)
[2022-05-19] MEDS: LOSARTAN POTASSIUM 25 MG TAB PO SCH (10:23)
[2022-05-19] MEDS: CLOPIDOGREL BISULFATE 75 MG TAB PO SCH (10:23)
[2022-05-19] MEDS: ASPirin 81 mg TAB PO SCH (10:23)
[2022-05-19] MEDS: FUROSEMIDE 20 MG TAB PO SCH (10:24)
[2022-05-19] MEDS: CARVEDILOL 3.125 MG TAB PO SCH ×2 (10:24→22:07)
[2022-05-19 19:00] VITALS: BP 148/55
[2022-05-19 20:00] VITALS: BP 150/55
[2022-05-19 22:00] VITALS: BP 160/50
[2022-05-20] MEDS: ACCU-CHEK COMFORT CURVE STRIP VI SCH ×2 (00:03→06:00)
[2022-05-20] MEDS: InsuLIN REG 1unit/0.01ml Soln (100units/ml) SC SCH ×2 (00:05→06:08)
[2022-05-20 05:00] VITALS: BP 137/54
[2022-05-20 07:06] LABS: Basophils # (auto) 0 10 ^3/uL (0-0.2); Basophils % (auto) 0.4 % (0.0-2.0); Eosinophils # (auto) 0.1 10 ^3/uL (0-0.8); Eosinophils % (auto) 3.1 % (0.0-7.0); Hematocrit 37.6 % (36.0-46.0); Hemoglobin 12.4 g/dL (12.2-16.2); Lymphocytes # (auto) 1.2 10 ^3/uL (0.4-5.4); Lymphocytes % (auto) 28.2 % (10.0-50.0); Mean Corpuscular Hemoglobin 27.7 pg (28.0-32.0); Mean Corpuscular Volume 83.9 fL (80.0-100.0); Monocytes # (auto) 0.5 10 ^3/uL (0-1.3); Monocytes % (auto) 11.4 % (0.0-12.0); Neutrophils # (auto) 2.4 10 ^3/uL (1.6-8.6); Neutrophils % (auto) 56.9 % (37.0-80.0); Nucleated Red Blood Cells % 0.1 %; Red Blood Cells 4.48 10^6/uL (4.0-5.20); Red Cell Distribution Width 13.6 % (11.8-14.3); White Blood Cell 4.2 10^3/uL (4.4-10.8)
[2022-05-20 07:22] LABS: Potassium 4.2 mmol/L (3.5-5.1)
[2022-05-20 07:27] LABS: Albumin 3.7 g/dL (3.4-5.0); BUN/Creatinine Ratio 19.9; Calcium 9.3 mg/dL (8.5-10.1)
[2022-05-20 07:29] LABS: Bilirubin, Total 0.7 mg/dL (0.2-1.0); Total Protein 6.9 g/dL (6.4-8.2)
[2022-05-20] MEDS: LEVOTHYROXINE SODIUM 50 MCG TAB PO SCH (08:14)
[2022-05-20 09:00] VITALS: BP 158/53
[2022-05-20] MEDS: ASPirin 81 mg TAB PO SCH (09:41)
[2022-05-20] MEDS: FUROSEMIDE 20 MG TAB PO SCH (09:42)
[2022-05-20] MEDS: LOSARTAN POTASSIUM 25 MG TAB PO SCH (09:42)
[2022-05-20] MEDS: CLOPIDOGREL BISULFATE 75 MG TAB PO SCH (09:42)
[2022-05-20] MEDS: CARVEDILOL 3.125 MG TAB PO SCH (09:42)
[2022-05-20] MEDS: ENOXAPARIN SOD 40 MG/0.4 ML SYRINGE SC SCH (09:43)
[2022-05-20 11:56] VITALS: BP 158/53
[2022-05-21] MEDS ORDERED: LEVOTHYROXINE SODIUM 25 MCG TAB PO SCH (08:00)
[2022-05-21] MEDS ORDERED: LEVOTHYROXINE SODIUM 112 MCG TAB PO SCH (08:00)
== END 2022-05-20 14:45 | disposition home or self-care (01) | DRG 637 ==
LOC: ER 15:26 → TELE 20:42 → WEST WING 05-19 17:01 → TELE-WESTW 05-19 18:19 → WEST WING 05-20 08:01
PROVIDERS: ADMIT Hospitalist; ATTEND Hospitalist
DX: E11.649 Type 2 diabetes mellitus with hypoglycemia without coma (principal); G93.41 Metabolic encephalopathy; E03.9 Hypothyroidism, unspecified; E87.6 Hypokalemia; I11.0 Hypertensive heart disease with heart failure; I50.9 Heart failure, unspecified; Z20.822 Contact with and (suspected) exposure to COVID-19; T38.3X5A Adverse effect of insulin and oral hypoglycemic [antidiabetic] drugs, initial encounter; Z79.02 Long term (current) use of antithrombotics/antiplatelets; Z79.4 Long term (current) use of insulin; Z79.82 Long term (current) use of aspirin; Z80.49 Family history of malignant neoplasm of other genital organs; Z82.49 Family history of ischemic heart disease and other diseases of the circulatory system; Z83.3 Family history of diabetes mellitus; Z86.73 Personal history of transient ischemic attack (TIA), and cerebral infarction without residual deficits; Z90.710 Acquired absence of both cervix and uterus; Z88.0 Allergy status to penicillin; Y92.89 Other specified places as the place of occurrence of the external cause
CPT/HCPCS: 36415; 70450; 70496; 70498; 71045; 80048; 80053; 80061; 80307; 80320; 81001; 82140; 82962; 83605; 84484; 85025; 87040; 92610; 93005; 96361; 96374; 99291; G0378; J1815

== ENCOUNTER 2023-07-27 08:24 | Inpatient (IN) | payer MEDICARE, OTHER ==
[~2023-07-27] VITALS: Ht 170.2 cm; Wt 56.7 kg
[~2023-07-27 08:24] MED LIST changes: -AMLO-496 PO; +AMLO1TAB23 PO; +CIPR-173 PO
[2023-07-27 09:01] LABS: Base Excess -9.7 mmol/L (-2.0-2.0)
[2023-07-27 09:19] LABS: Alanine Aminotransferase 19 U/L (7-40); Alkaline Phosphatase 105 U/L (46-116); Anion Gap 16 (5-15); Aspartate Aminotransferase 20 U/L (13-40); BUN/Creatinine Ratio 19.4 (10.0-20.0); Basophils # (auto) 0 10 ^3/uL (0-0.2); Basophils % (auto) 0.1 % (0.0-2.0); Blood Urea Nitrogen 37 mg/dL (9-23); Calcium 9.5 mg/dL (8.7-10.4); Carbon Dioxide 18 mmol/L (20-30); Chloride 98 mmol/L (98-107); Eosinophils # (auto) 0 10 ^3/uL (0-0.8); Hematocrit 43.2 % (36.0-46.0); Hemoglobin 13.6 g/dL (12.2-16.2); Lymphocytes # (auto) 0.5 10 ^3/uL (0.4-5.4); Lymphocytes % (auto) 8.2 % (10.0-50.0); Magnesium 2.2 mg/dL (1.6-2.6); Mean Corpuscular Hemoglobin 27.3 pg (28.0-32.0); Mean Corpuscular Hgb Conc. 31.6 g/dL (32.0-36.0); Mean Corpuscular Volume 86.5 fL (80.0-100.0); Monocytes # (auto) 0.1 10 ^3/uL (0-1.3); Monocytes % (auto) 2.1 % (0.0-12.0); Neutrophils # (auto) 5.8 10 ^3/uL (1.6-8.6); Neutrophils % (auto) 89.6 % (37.0-80.0); Potassium 4.5 mmol/L (3.5-5.1); Red Blood Cells 4.99 10^6/uL (4.0-5.20); Red Cell Distribution Width 14.1 % (11.8-14.3); Sodium 132 mmol/L (136-145); White Blood Cell 6.5 10^3/uL (4.4-10.8)
[2023-07-27 09:20] LABS: Albumin 4.9 g/dL (3.2-4.8); Bilirubin, Total 0.7 mg/dL (0.2-1.0); Total Protein 8.6 g/dL (5.7-8.2)
[2023-07-27 09:22] LABS: Glucose 487 mg/dL (74-106)
[2023-07-27 09:37] LABS: INR 0.95 (0.9-1.15); Partial Thromboplastin Time 24.8 SEC (24.5-34.5)
[2023-07-27] MEDS ORDERED: INSULIN LANTUS (GLARGINE) 1 /0.01ml (100units/ml) SC ONE (12:15)
[2023-07-27] MEDS ORDERED: SODIUM CHLORIDE 0.9% 1,000 ML IV ONE ×2 (12:15)
[2023-07-27] MEDS ORDERED: INSULIN DRIP 100 UNIT/100ML 100 ML IV SCH (12:15)
[2023-07-27] MEDS ORDERED: DEXTROSE (50%) 50ML SYRG IV PRN (12:15)
[2023-07-27 12:26] LABS: Urine Bacteria FEW /hpf (None Seen); Urine Blood Negative /uL (Negative); Urine Clarity Clear (Clear); Urine Color Colorless (Yellow); Urine Protein, UAD TRACE (Negative); Urine Specific Gravity 1.022 (1.001-1.035); Urine Urobilinogen Normal (Negative); Urine WBC 1 /hpf (0 - 5)
[2023-07-27 13:30] VITALS: PULSE 95; RESP 19; O2SAT 99
[2023-07-27] MEDS: ACCU-CHEK COMFORT CURVE STRIP VI SCH ×7 (13:39→22:51)
[2023-07-27 19:35] VITALS: PULSE 78; RESP 10; O2SAT 94
[2023-07-27 20:48] LABS: Alanine Aminotransferase 15 U/L (7-40); Albumin 4.1 g/dL (3.2-4.8); Alkaline Phosphatase 76 U/L (46-116); Anion Gap 8 (5-15); Aspartate Aminotransferase 20 U/L (13-40); BUN/Creatinine Ratio 21.9 (10.0-20.0); Bilirubin, Total 0.7 mg/dL (0.2-1.0); Blood Urea Nitrogen 30 mg/dL (9-23); Calcium 8.9 mg/dL (8.7-10.4); Carbon Dioxide 23 mmol/L (20-30); Glucose 86 mg/dL (74-106); Sodium 140 mmol/L (136-145)
[2023-07-27 20:59] LABS: Chloride 109 mmol/L (98-107)
[2023-07-27] MEDS ORDERED: IBUPROFEN 600 MG TAB PO PRN (21:00)
[2023-07-27] MEDS ORDERED: DOCUSATE SOD 100 MG CAP PO PRN (21:00)
[2023-07-27] MEDS ORDERED: ONDANSETRON HCL 4 MG/2 ML VIAL IV PRN (21:00)
[2023-07-27] MEDS ORDERED: D5W/SOD CHLO 0.9% 1,000 ML IV SCH (21:00)
[2023-07-27] MEDS ORDERED: ASPirin 81 mg TAB PO ONE (21:15)
[2023-07-27] MEDS: ATORVASTATIN 20 MG TAB PO SCH (21:45)
[2023-07-27] MEDS: CARVEDILOL 3.125 MG TAB PO SCH (21:48)
[2023-07-27] MEDS ORDERED: MORPHINE SULFATE INJ 2 MG/ml SYRG IV PRN (23:00)
[2023-07-27] MEDS ORDERED: NITROGLYCERIN 0.4 MG SL TAB SL PRN (23:00)
[2023-07-28] MEDS: ACCU-CHEK COMFORT CURVE STRIP VI SCH ×5 (00:18→21:59)
[2023-07-28] MEDS: hydrALAZINE HCL 20 MG/ML VL IV PRN ×3 (03:21→23:54)
[2023-07-28 05:51] LABS: Basophils # (auto) 0 10 ^3/uL (0-0.2); Basophils % (auto) 0.2 % (0.0-2.0); Eosinophils # (auto) 0 10 ^3/uL (0-0.8); Eosinophils % (auto) 0.9 % (0.0-7.0); Hematocrit 35.5 % (36.0-46.0); Hemoglobin 11.4 g/dL (12.2-16.2); Lymphocytes # (auto) 1.5 10 ^3/uL (0.4-5.4); Lymphocytes % (auto) 31.1 % (10.0-50.0); Mean Corpuscular Hemoglobin 27.8 pg (28.0-32.0); Mean Corpuscular Hgb Conc. 32.3 g/dL (32.0-36.0); Mean Corpuscular Volume 86.1 fL (80.0-100.0); Monocytes # (auto) 0.3 10 ^3/uL (0-1.3); Monocytes % (auto) 6.9 % (0.0-12.0); Neutrophils # (auto) 2.9 10 ^3/uL (1.6-8.6); Neutrophils % (auto) 60.9 % (37.0-80.0); Nucleated Red Blood Cells % 0.1 %; Red Blood Cells 4.12 10^6/uL (4.0-5.20); Red Cell Distribution Width 14.1 % (11.8-14.3); White Blood Cell 4.8 10^3/uL (4.4-10.8)
[2023-07-28 06:30] LABS: Alanine Aminotransferase 14 U/L (7-40); Albumin 3.7 g/dL (3.2-4.8); Alkaline Phosphatase 65 U/L (46-116); Anion Gap 13 (5-15); Aspartate Aminotransferase 19 U/L (13-40); BUN/Creatinine Ratio 20.6 (10.0-20.0); Blood Urea Nitrogen 26 mg/dL (9-23); Calcium 8.7 mg/dL (8.7-10.4); Carbon Dioxide 19 mmol/L (20-30); Chloride 110 mmol/L (98-107); Glucose 91 mg/dL (74-106); Potassium 4.4 mmol/L (3.5-5.1); Sodium 142 mmol/L (136-145); Total Protein 6.3 g/dL (5.7-8.2)
[2023-07-28] MEDS ORDERED: DEXTROSE (50%) 50ML SYRG IV PRN (06:30)
[2023-07-28] MEDS: LEVOTHYROXINE SODIUM 25 MCG TAB PO SCH (06:32)
[2023-07-28 07:43] VITALS: PULSE 71; RESP 19; O2SAT 100
[2023-07-28] MEDS: InsuLIN REG 1unit/0.01ml Soln (100units/ml) SC SCH ×4 (07:48→22:07)
[2023-07-28 09:32] LABS: Triglycerides 94 mg/dL (< 150)
[2023-07-28 09:33] LABS: LDL Cholesterol 64 mg/dL (< 100)
[2023-07-28 09:34] LABS: Cholesterol 130 mg/dL (< 200); HDL Cholesterol 46 mg/dL (40-59)
[2023-07-28] MEDS: ENOXAPARIN SOD 30 MG/0.3 ML SYRINGE SC SCH (09:44)
[2023-07-28] MEDS: ASPirin 81 mg TAB PO SCH (09:44)
[2023-07-28] MEDS: FUROSEMIDE 20 MG/2 ML VIAL IV SCH (09:44)
[2023-07-28] MEDS: CARVEDILOL 3.125 MG TAB PO SCH ×2 (09:45→22:08)
[2023-07-28] MEDS ORDERED: amLODIPine BESYLATE 5 MG TAB PO SCH (10:00)
[2023-07-28] MEDS ORDERED: FAMOTIDINE (10MG/ML) 2ML VL IV SCH (10:00)
[2023-07-28] MEDS ORDERED: INSULIN LANTUS (GLARGINE) 1 /0.01ml (100units/ml) SC SCH (10:00)
[2023-07-28] MEDS ORDERED: INSULIN LANTUS (GLARGINE) 1 /0.01ml (100units/ml) SC ONE (12:00)
[2023-07-28 12:57] LABS: Protein, Urine 13.1 mg/dL (0.0-11.9)
[2023-07-28 13:00] LABS: Creatinine, Urine 14.26 mg/dL (30.0-125.0)
[2023-07-28 13:42] LABS: Urine Bacteria MOD /hpf (None Seen); Urine Blood Negative /uL (Negative); Urine Clarity Clear (Clear); Urine Color Colorless (Yellow); Urine Protein, UAD Negative (Negative); Urine Specific Gravity 1.008 (1.001-1.035); Urine Urobilinogen Normal (Negative); Urine WBC <1 /hpf (0 - 5)
[2023-07-28] MEDS ORDERED: InsuLIN REG 1unit/0.01ml Soln (100units/ml) SC ONE (14:15)
[2023-07-28 20:12] LABS: Amphetamine Screen, Urine Neg (NEGATIVE); Benzodiazephine Screen, Urine Neg (NEGATIVE)
[2023-07-28 20:13] LABS: Barbiturate Scree,Urine Neg (NEGATIVE); Cannabinoid Screen, Urine Neg (NEGATIVE); Cocaine Screen, Urine Neg (NEGATIVE); Opiate Scree,Urine Neg (NEGATIVE); Phencyclidine Screen, Urine Neg (NEGATIVE)
[2023-07-28] MEDS: ATORVASTATIN 20 MG TAB PO SCH (22:07)
[2023-07-29] VITALS (7 sets, daily range): BP systolic 125–163; BP diastolic 65–79; PULSE 62–84; RESP 16–20; TEMP 36.7; O2SAT 95–98
[2023-07-29] MEDS: ACCU-CHEK COMFORT CURVE STRIP VI SCH ×4 (06:21→22:00)
[2023-07-29] MEDS: InsuLIN REG 1unit/0.01ml Soln (100units/ml) SC SCH ×4 (06:21→22:00)
[2023-07-29] MEDS: LEVOTHYROXINE SODIUM 25 MCG TAB PO SCH (06:33)
[2023-07-29 06:53] LABS: Chloride 108 mmol/L (98-107); Potassium 3.5 mmol/L (3.5-5.1); Sodium 141 mmol/L (136-145)
[2023-07-29 06:54] LABS: Anion Gap 9 (5-15); Calcium 9.3 mg/dL (8.5-10.1); Carbon Dioxide 24 mmol/L (20-30)
[2023-07-29 06:59] LABS: BUN/Creatinine Ratio 15.4 (10.0-20.0); Blood Urea Nitrogen 16 mg/dL (9-23)
[2023-07-29 07:07] LABS: Basophils # (auto) 0 10 ^3/uL (0-0.2); Basophils % (auto) 0.3 % (0.0-2.0); Eosinophils # (auto) 0.1 10 ^3/uL (0-0.8); Eosinophils % (auto) 1.7 % (0.0-7.0); Glucose 47 mg/dL (74-106); Hematocrit 40.4 % (36.0-46.0); Hemoglobin 13.3 g/dL (12.2-16.2); Lymphocytes # (auto) 1.5 10 ^3/uL (0.4-5.4); Lymphocytes % (auto) 38.6 % (10.0-50.0); Mean Corpuscular Hgb Conc. 32.9 g/dL (32.0-36.0); Mean Corpuscular Volume 85.2 fL (80.0-100.0); Monocytes # (auto) 0.3 10 ^3/uL (0-1.3); Monocytes % (auto) 7.3 % (0.0-12.0); Neutrophils % (auto) 52.1 % (37.0-80.0); Red Blood Cells 4.74 10^6/uL (4.0-5.20); Red Cell Distribution Width 14.1 % (11.8-14.3); White Blood Cell 3.8 10^3/uL (4.4-10.8)
[2023-07-29] MEDS: CARVEDILOL 3.125 MG TAB PO SCH ×2 (09:51→22:32)
[2023-07-29] MEDS: ASPirin 81 mg TAB PO SCH (09:51)
[2023-07-29] MEDS: amLODIPine BESYLATE 5 MG TAB PO SCH (09:52)
[2023-07-29] MEDS: FUROSEMIDE 20 MG/2 ML VIAL IV SCH (09:52)
[2023-07-29] MEDS: ENOXAPARIN SOD 30 MG/0.3 ML SYRINGE SC SCH (09:53)
[2023-07-29] MEDS: INSULIN LANTUS (GLARGINE) 1 /0.01ml (100units/ml) SC SCH (10:01)
[2023-07-29 14:08] LABS: Uric Acid 7.2 mg/dL (3.1-7.8)
[2023-07-29] MEDS: METOPROLOL SUCCINATE XL 50 MG TAB PO SCH (16:45)
[2023-07-29] MEDS: ATORVASTATIN 20 MG TAB PO SCH (22:30)
[2023-07-30] MEDS: InsuLIN REG 1unit/0.01ml Soln (100units/ml) SC SCH ×3 (04:21→17:00)
[2023-07-30 05:00] VITALS: BP 130/59; PULSE 64; RESP 18; TEMP 98.2; O2SAT 95
[2023-07-30] MEDS: ACCU-CHEK COMFORT CURVE STRIP VI SCH ×3 (06:04→17:26)
[2023-07-30] MEDS: LEVOTHYROXINE SODIUM 25 MCG TAB PO SCH (06:06)
[2023-07-30 07:18] LABS: Basophils # (auto) 0 10 ^3/uL (0-0.2); Basophils % (auto) 0.4 % (0.0-2.0); Eosinophils # (auto) 0.1 10 ^3/uL (0-0.8); Eosinophils % (auto) 4.4 % (0.0-7.0); Hemoglobin 12.1 g/dL (12.2-16.2); Lymphocytes # (auto) 1.2 10 ^3/uL (0.4-5.4); Lymphocytes % (auto) 45.7 % (10.0-50.0); Mean Corpuscular Hemoglobin 27.1 pg (28.0-32.0); Mean Corpuscular Hgb Conc. 32.6 g/dL (32.0-36.0); Mean Corpuscular Volume 83.2 fL (80.0-100.0); Monocytes # (auto) 0.3 10 ^3/uL (0-1.3); Neutrophils % (auto) 39.5 % (37.0-80.0); Nucleated Red Blood Cells % 0.1 %; Red Blood Cells 4.44 10^6/uL (4.0-5.20); Red Cell Distribution Width 13.8 % (11.8-14.3); White Blood Cell 2.6 10^3/uL (4.4-10.8)
[2023-07-30 07:36] LABS: Anion Gap 7 (5-15); Carbon Dioxide 27 mmol/L (20-30); Chloride 105 mmol/L (98-107); Potassium 3.8 mmol/L (3.5-5.1); Sodium 139 mmol/L (136-145)
[2023-07-30 07:38] LABS: Calcium 8.9 mg/dL (8.5-10.1)
[2023-07-30 07:42] LABS: BUN/Creatinine Ratio 15.6 (10.0-20.0); Blood Urea Nitrogen 15 mg/dL (9-23); Glucose 74 mg/dL (74-106)
[2023-07-30 08:00] VITALS: BP 141/74; PULSE 61; RESP 20; TEMP 98.2; O2SAT 97
[2023-07-30 08:30] VITALS: BP 141/74; PULSE 61; RESP 20; TEMP 98.2; O2SAT 97
[2023-07-30] MEDS: ENOXAPARIN SOD 30 MG/0.3 ML SYRINGE SC SCH (09:27)
[2023-07-30] MEDS: FUROSEMIDE 20 MG/2 ML VIAL IV SCH (09:28)
[2023-07-30] MEDS: ASPirin 81 mg TAB PO SCH (09:29)
[2023-07-30] MEDS: amLODIPine BESYLATE 5 MG TAB PO SCH (09:29)
[2023-07-30] MEDS: CARVEDILOL 3.125 MG TAB PO SCH (09:30)
[2023-07-30] MEDS: METOPROLOL SUCCINATE XL 50 MG TAB PO SCH (09:30)
[2023-07-30] MEDS: INSULIN LANTUS (GLARGINE) 1 /0.01ml (100units/ml) SC SCH (09:45)
[2023-07-30] MEDS ORDERED: LEVO150T10 PO (10:42)
[2023-07-30 12:44] VITALS: BP 155/76; PULSE 98; RESP 16; TEMP 98; O2SAT 98
[2023-07-30 14:59] VITALS: BP 155/76; PULSE 98; RESP 16; TEMP 98; O2SAT 98
[2023-07-30 17:00] VITALS: BP 138/57; PULSE 69; RESP 20; TEMP 97.4; O2SAT 96
== END 2023-07-30 17:30 | disposition home or self-care (01) | DRG 637 ==
LOC: ER 08:24 → TELE 22:52 → TELE-WESTW 07-28 22:21 → WEST WING 07-30 01:50
PROVIDERS: ADMIT Internal Medicine
DX: E11.10 Type 2 diabetes mellitus with ketoacidosis without coma (principal); I21.A1 Myocardial infarction type 2; N17.0 Acute kidney failure with tubular necrosis; I50.33 Acute on chronic diastolic (congestive) heart failure; I13.0 Hypertensive heart and chronic kidney disease with heart failure and stage 1 through stage 4 chronic kidney disease, or unspecified chronic kidney disease; E11.22 Type 2 diabetes mellitus with diabetic chronic kidney disease; E78.5 Hyperlipidemia, unspecified; E03.9 Hypothyroidism, unspecified; F41.9 Anxiety disorder, unspecified; N18.32 Chronic kidney disease, stage 3b; I16.0 Hypertensive urgency; Z88.0 Allergy status to penicillin; Z88.8 Allergy status to other drugs, medicaments and biological substances; Z80.49 Family history of malignant neoplasm of other genital organs; Z82.49 Family history of ischemic heart disease and other diseases of the circulatory system; Z83.3 Family history of diabetes mellitus; Z86.73 Personal history of transient ischemic attack (TIA), and cerebral infarction without residual deficits; Z88.2 Allergy status to sulfonamides; Z88.6 Allergy status to analgesic agent; Z90.710 Acquired absence of both cervix and uterus
CPT/HCPCS: 36415; 36600; 71045; 80048; 80053; 80061; 80307; 81001; 82010; 82570; 82805; 82962; 83036; 83735; 83880; 84156; 84300; 84439; 84443; 84484; 84550; 85025; 85610; 85730; 93005; 93306; 96361; 96365; 96372; G0378; J1815; J3490

== ENCOUNTER 2023-10-23 13:46 | Inpatient (IN) | payer MEDICARE, OTHER ==
[~2023-10-23] VITALS: Ht 157.5 cm; Wt 55.1 kg
[~2023-10-23 13:46] MED LIST changes: -CIPR-173 PO; -LEVO137T3 PO; +LEVO150T10 PO
[2023-10-23 14:15] LABS: Basophils # (auto) 0 10 ^3/uL (0-0.2); Basophils % (auto) 0.1 % (0.0-2.0); Eosinophils # (auto) 0 10 ^3/uL (0-0.8); Eosinophils % (auto) 0.1 % (0.0-7.0); Hemoglobin 12.1 g/dL (12.2-16.2); Lymphocytes # (auto) 1.5 10 ^3/uL (0.4-5.4); Monocytes # (auto) 0.4 10 ^3/uL (0-1.3); Neutrophils # (auto) 6.3 10 ^3/uL (1.6-8.6); Red Blood Cells 4.55 10^6/uL (4.0-5.20); White Blood Cell 8.2 10^3/uL (4.4-10.8)
[2023-10-23] MEDS ORDERED: DEXTROSE (50%) 50ML SYRG IV PRN ×2 (14:15→21:45)
[2023-10-23 14:18] LABS: Hematocrit 38.3 % (36.0-46.0); Lymphocytes % (auto) 18.3 % (10.0-50.0); Mean Corpuscular Hemoglobin 26.7 pg (28.0-32.0); Mean Corpuscular Hgb Conc. 31.7 g/dL (32.0-36.0); Neutrophils % (auto) 76.5 % (37.0-80.0); Nucleated Red Blood Cells % 0.1 %; Red Cell Distribution Width 13.9 % (11.8-14.3)
[2023-10-23 14:32] LABS: Alanine Aminotransferase 14 U/L (7-40); Albumin 3.9 g/dL (3.2-4.8); Alkaline Phosphatase 105 U/L (46-116); Anion Gap 16 (5-15); Aspartate Aminotransferase 16 U/L (13-40); BUN/Creatinine Ratio 18.7 (10.0-20.0); Blood Urea Nitrogen 28 mg/dL (9-23); Calcium 9.3 mg/dL (8.7-10.4); Carbon Dioxide 16 mmol/L (20-30); Chloride 99 mmol/L (98-107); Potassium 4.7 mmol/L (3.5-5.1); Sodium 131 mmol/L (136-145)
[2023-10-23 14:33] LABS: Bilirubin, Total 0.5 mg/dL (0.2-1.0); Total Protein 7.7 g/dL (5.7-8.2)
[2023-10-23 14:36] LABS: Glucose 571 mg/dL (74-106)
[2023-10-23] MEDS: INSULIN LANTUS (GLARGINE) 1 /0.01ml (100units/ml) SC ONE ×3 (15:38→23:23)
[2023-10-23] MEDS: ACCU-CHEK COMFORT CURVE STRIP VI SCH ×2 (15:39→22:53)
[2023-10-23] MEDS: INSULIN DRIP 100 UNIT/100ML 100 ML IV SCH ×2 (15:39→21:45)
[2023-10-23] MEDS: ONDANSETRON HCL 4 MG/2 ML VIAL IV ONE (16:18)
[2023-10-23 17:18] LABS: Lactic Acid w/Reflex 5.9 mmol/L (0.4-2.0)
[2023-10-23] MEDS: SODIUM CHLORIDE 0.9% 2,000 ML IV ONE (17:46)
[2023-10-23 17:58] VITALS: PULSE 110; RESP 20; O2SAT 98
[2023-10-23 18:48] LABS: Urine Bacteria NONE SEEN /hpf (None Seen); Urine Blood Negative /uL (Negative); Urine Clarity Clear (Clear); Urine Color Colorless (Yellow); Urine Hyaline Cast FEW /lpf (0 - 2); Urine Mucus FEW (None Seen); Urine Protein, UAD TRACE (Negative); Urine Specific Gravity 1.019 (1.001-1.035); Urine Urobilinogen Normal (Negative); Urine WBC 1 /hpf (0 - 5)
[2023-10-23 19:45] VITALS: PULSE 110; RESP 18; O2SAT 96
[2023-10-23] MEDS ORDERED: ONDANSETRON HCL 4 MG/2 ML VIAL IV PRN (21:45)
[2023-10-23] MEDS ORDERED: NITROGLYCERIN 0.4 MG SL TAB SL PRN (21:45)
[2023-10-23] MEDS ORDERED: MORPHINE SULFATE INJ 2 MG/ml SYRG IV PRN (21:45)
[2023-10-23 22:20] LABS: Potassium 3.9 mmol/L (3.5-5.1); Sodium 142 mmol/L (136-145)
[2023-10-23 22:21] LABS: Anion Gap 7 (5-15); Calcium 8.6 mg/dL (8.5-10.1); Carbon Dioxide 22 mmol/L (20-30)
[2023-10-23 22:26] LABS: Blood Urea Nitrogen 22 mg/dL (9-23); Glucose 186 mg/dL (74-106)
[2023-10-23 22:37] LABS: Chloride 113 mmol/L (98-107)
[2023-10-23 22:45] LABS: BUN/Creatinine Ratio 14.9 (10.0-20.0)
[2023-10-24] MEDS: SODIUM CHLORIDE 0.9% 1,000 ML IV SCH (03:45)
[2023-10-24 05:26] LABS: Basophils # (auto) 0 10 ^3/uL (0-0.2); Basophils % (auto) 0.2 % (0.0-2.0); Eosinophils # (auto) 0 10 ^3/uL (0-0.8); Eosinophils % (auto) 0.1 % (0.0-7.0); Hematocrit 34.8 % (36.0-46.0); Hemoglobin 11.2 g/dL (12.2-16.2); Lymphocytes # (auto) 1.4 10 ^3/uL (0.4-5.4); Lymphocytes % (auto) 15.9 % (10.0-50.0); Mean Corpuscular Hemoglobin 26.5 pg (28.0-32.0); Mean Corpuscular Hgb Conc. 32.2 g/dL (32.0-36.0); Mean Corpuscular Volume 82.3 fL (80.0-100.0); Monocytes # (auto) 0.9 10 ^3/uL (0-1.3); Monocytes % (auto) 10.7 % (0.0-12.0); Neutrophils # (auto) 6.4 10 ^3/uL (1.6-8.6); Neutrophils % (auto) 73.1 % (37.0-80.0); Nucleated Red Blood Cells % 0.1 %; Red Blood Cells 4.23 10^6/uL (4.0-5.20); Red Cell Distribution Width 13.8 % (11.8-14.3); White Blood Cell 8.8 10^3/uL (4.4-10.8)
[2023-10-24 05:42] LABS: Alanine Aminotransferase 13 U/L (7-40); Albumin 3.8 g/dL (3.2-4.8); Alkaline Phosphatase 86 U/L (46-116); Anion Gap 10 (5-15); Aspartate Aminotransferase 14 U/L (13-40); BUN/Creatinine Ratio 17.1 (10.0-20.0); Bilirubin, Total 0.5 mg/dL (0.2-1.0); Blood Urea Nitrogen 22 mg/dL (9-23); Carbon Dioxide 22 mmol/L (20-30); Chloride 111 mmol/L (98-107); Glucose 162 mg/dL (74-106); Potassium 4.1 mmol/L (3.5-5.1); Sodium 143 mmol/L (136-145)
[2023-10-24 05:43] LABS: Total Protein 7.1 g/dL (5.7-8.2)
[2023-10-24] MEDS ORDERED: DEXTROSE (50%) 50ML SYRG IV PRN (06:30)
[2023-10-24 07:30] VITALS: PULSE 79; RESP 13; O2SAT 95
[2023-10-24] MEDS: InsuLIN REG 1unit/0.01ml Soln (100units/ml) SC SCH ×2 (08:00→12:15)
[2023-10-24] MEDS: ACCU-CHEK COMFORT CURVE STRIP VI SCH ×2 (08:06→12:15)
[2023-10-24] MEDS: INSULIN LANTUS (GLARGINE) 1 /0.01ml (100units/ml) SC SCH (10:19)
[2023-10-24 10:58] LABS: % Iron Saturation 28.3 % (15-50)
[2023-10-24 11:00] LABS: INR 1.02 (0.9-1.15); Prothrombin Time 10.7 sec (9.3-11.8)
[2023-10-24 11:03] LABS: Magnesium 2.1 mg/dL (1.6-2.6)
[2023-10-24 11:41] LABS: CRP High Sensitivity 0.54 mg/dL (<1.0)
[2023-10-24 16:01] LABS: Chloride 106 mmol/L (98-107); Potassium 4.1 mmol/L (3.5-5.1); Sodium 136 mmol/L (136-145)
[2023-10-24 16:02] LABS: Anion Gap 6 (5-15); Calcium 8.5 mg/dL (8.7-10.4); Carbon Dioxide 24 mmol/L (20-30)
[2023-10-24 16:07] LABS: BUN/Creatinine Ratio 15.2 (10.0-20.0); Blood Urea Nitrogen 20 mg/dL (9-23); Glucose 271 mg/dL (74-106)
[2023-10-24] MEDS ORDERED: DIVA250T12 PO (17:18)
[2023-10-24] MEDS ORDERED: BUSP5TAB51 PO (17:18)
[2023-10-24 17:56] VITALS: BP 145/68; PULSE 78; RESP 16; TEMP 98.6; O2SAT 98
[2023-10-24 20:00] VITALS: PULSE 72; PULSE 93; RESP 18
[2023-10-24 22:00] VITALS: BP 150/66; PULSE 74; RESP 19; TEMP 98.2; O2SAT 94
[2023-10-24] MEDS ORDERED: INSULIN LANTUS (GLARGINE) 1 /0.01ml (100units/ml) SC SCH (22:00)
[2023-10-25] VITALS (7 sets, daily range): BP systolic 153–176; BP diastolic 66–77; PULSE 70–87; RESP 18–20; TEMP 97.4–98.3; O2SAT 92–99
[2023-10-25 05:45] LABS: Basophils # (auto) 0 10 ^3/uL (0-0.2); Eosinophils # (auto) 0.1 10 ^3/uL (0-0.8); Eosinophils % (auto) 1.8 % (0.0-7.0); Hemoglobin 11.3 g/dL (12.2-16.2); Lymphocytes # (auto) 1.2 10 ^3/uL (0.4-5.4); Monocytes # (auto) 0.5 10 ^3/uL (0-1.3); White Blood Cell 4.6 10^3/uL (4.4-10.8)
[2023-10-25 05:48] LABS: Basophils % (auto) 0.2 % (0.0-2.0); Hematocrit 34.5 % (36.0-46.0); Lymphocytes % (auto) 25.9 % (10.0-50.0); Mean Corpuscular Hemoglobin 26.8 pg (28.0-32.0); Mean Corpuscular Hgb Conc. 32.7 g/dL (32.0-36.0); Mean Corpuscular Volume 81.9 fL (80.0-100.0); Monocytes % (auto) 11.4 % (0.0-12.0); Neutrophils # (auto) 2.8 10 ^3/uL (1.6-8.6); Neutrophils % (auto) 60.7 % (37.0-80.0); Nucleated Red Blood Cells % 0.1 %; Red Blood Cells 4.21 10^6/uL (4.0-5.20); Red Cell Distribution Width 13.8 % (11.8-14.3)
[2023-10-25 06:02] LABS: Alanine Aminotransferase 13 U/L (7-40); Albumin 3.5 g/dL (3.2-4.8); Alkaline Phosphatase 79 U/L (46-116); Anion Gap 6 (5-15); Aspartate Aminotransferase 16 U/L (13-40); Calcium 9.1 mg/dL (8.7-10.4); Carbon Dioxide 26 mmol/L (20-30); Chloride 109 mmol/L (98-107); Glucose 102 mg/dL (74-106); Magnesium 2.1 mg/dL (1.6-2.6); Potassium 3.6 mmol/L (3.5-5.1); Sodium 141 mmol/L (136-145)
[2023-10-25 06:25] LABS: BUN/Creatinine Ratio 12.4 (10.0-20.0); Blood Urea Nitrogen 11 mg/dL (9-23)
[2023-10-25 06:26] LABS: Bilirubin, Total 0.4 mg/dL (0.2-1.0)
[2023-10-25 06:27] LABS: Total Protein 6.8 g/dL (5.7-8.2)
[2023-10-25] MEDS: POTASSIUM CHL 20 Meq TABLET PO ONE (07:15)
[2023-10-25 08:06] LABS: Free Thyroxine Index 5.2 (1.2-4.9)
[2023-10-25] MEDS: LOSARTAN POTASSIUM 25 MG TAB PO ONE (09:30)
[2023-10-25] MEDS: DIVALPROEX SODIUM 125 MG PO SCH (09:30)
[2023-10-25] MEDS: busPIRone HCL 10 MG TAB PO SCH (09:31)
[2023-10-25] MEDS: METOPROLOL TARTRATE 25 MG TAB PO SCH (09:31)
[2023-10-25] MEDS ORDERED: PATIENTS OWN MEDICATION (Buspirone Hcl 1 TAB) PO SCH (10:00)
[2023-10-25] MEDS ORDERED: PATIENTS OWN MEDICATION (Atorvastatin Calcium 1 TAB) PO SCH (10:00)
[2023-10-25] MEDS ORDERED: LEVO88TA4 PO (11:28)
[2023-10-25] MEDS: hydrALAZINE HCL 20 MG/ML VL IV PRN (12:49)
[2023-10-25] MEDS ORDERED: DEXTROSE (50%) 50ML SYRG IV PRN (13:00)
[2023-10-25] MEDS ORDERED: ACETAMINOPHEN 325 MG TAB PO PRN (16:30)
[2023-10-25] MEDS: ENOXAPARIN SOD 40 MG/0.4 ML SYRINGE SC ONE (17:00)
[2023-10-25] MEDS: ACCU-CHEK COMFORT CURVE STRIP VI SCH (17:05)
[2023-10-25] MEDS: InsuLIN REG 1unit/0.01ml Soln (100units/ml) SC SCH ×2 (17:06→21:15)
[2023-10-25] MEDS: ATORVASTATIN 20 MG TAB PO SCH (21:31)
[2023-10-25] MEDS ORDERED: ATORVASTATIN 20 MG TAB PO SCH (22:00)
[2023-10-26] MEDS: diphenhdrAMINE HCL 25 MG CAP PO PRN (03:17)
[2023-10-26 05:00] VITALS: BP 171/79; PULSE 79; RESP 20; TEMP 97.7; O2SAT 97
[2023-10-26 06:11] LABS: Basophils # (auto) 0 10 ^3/uL (0-0.2); Eosinophils # (auto) 0.1 10 ^3/uL (0-0.8); Lymphocytes # (auto) 1.1 10 ^3/uL (0.4-5.4); Nucleated Red Blood Cells % 0.1 %
[2023-10-26 06:13] LABS: Basophils % (auto) 0.4 % (0.0-2.0); Eosinophils % (auto) 2.3 % (0.0-7.0); Hematocrit 37.2 % (36.0-46.0); Hemoglobin 12.1 g/dL (12.2-16.2); Lymphocytes % (auto) 29.4 % (10.0-50.0); Mean Corpuscular Hemoglobin 26.5 pg (28.0-32.0); Mean Corpuscular Hgb Conc. 32.6 g/dL (32.0-36.0); Mean Corpuscular Volume 81.3 fL (80.0-100.0); Monocytes # (auto) 0.6 10 ^3/uL (0-1.3); Monocytes % (auto) 15.1 % (0.0-12.0); Neutrophils % (auto) 52.8 % (37.0-80.0); Red Blood Cells 4.57 10^6/uL (4.0-5.20); Red Cell Distribution Width 13.6 % (11.8-14.3); White Blood Cell 3.8 10^3/uL (4.4-10.8)
[2023-10-26 06:19] LABS: Alanine Aminotransferase 16 U/L (7-40); Albumin 3.7 g/dL (3.2-4.8); Alkaline Phosphatase 94 U/L (46-116); Anion Gap 8 (5-15); Aspartate Aminotransferase 16 U/L (13-40); BUN/Creatinine Ratio 12.6 (10.0-20.0); Bilirubin, Total 0.6 mg/dL (0.2-1.0); Blood Urea Nitrogen 11 mg/dL (9-23); Carbon Dioxide 22 mmol/L (20-30); Chloride 106 mmol/L (98-107); Glucose 290 mg/dL (74-106); Potassium 4.2 mmol/L (3.5-5.1)
[2023-10-26 06:20] LABS: Total Protein 7.2 g/dL (5.7-8.2)
[2023-10-26 06:40] LABS: Sodium 136 mmol/L (136-145)
[2023-10-26 06:58] LABS: Magnesium 1.9 mg/dL (1.6-2.6)
[2023-10-26 08:00] VITALS: PULSE 97
[2023-10-26 09:00] VITALS: BP 150/81; PULSE 99; RESP 19; TEMP 97.9; O2SAT 98
[2023-10-26] MEDS: INSULIN LANTUS (GLARGINE) 1 /0.01ml (100units/ml) SC SCH (10:00)
[2023-10-26] MEDS: LOSARTAN POTASSIUM 25 MG TAB PO SCH (10:10)
[2023-10-26] MEDS: amLODIPine BESYLATE 5 MG TAB PO SCH (10:11)
[2023-10-26] MEDS: ENOXAPARIN SOD 40 MG/0.4 ML SYRINGE SC SCH (10:11)
[2023-10-26] MEDS: LOSARTAN POTASSIUM 50 MG TAB PO ONE (12:15)
[2023-10-26] MEDS ORDERED: LOSA50TA46 PO (14:52)
[2023-10-26 15:59] VITALS: BP 150/81; PULSE 89; TEMP 36.6
== END 2023-10-26 17:01 | disposition home or self-care (01) | DRG 637 ==
LOC: ER 13:46 → TELE 21:48 → TELE-EAST 10-24 17:43
PROVIDERS: ADMIT Internal Medicine Geriatric Medicine; ATTEND Internal Medicine Geriatric Medicine
DX: E10.10 Type 1 diabetes mellitus with ketoacidosis without coma (principal); G93.41 Metabolic encephalopathy; N17.0 Acute kidney failure with tubular necrosis; I50.32 Chronic diastolic (congestive) heart failure; T38.3X6A Underdosing of insulin and oral hypoglycemic [antidiabetic] drugs, initial encounter; E78.5 Hyperlipidemia, unspecified; E86.0 Dehydration; E03.9 Hypothyroidism, unspecified; I11.0 Hypertensive heart disease with heart failure; L40.9 Psoriasis, unspecified; Y92.098 Other place in other non-institutional residence as the place of occurrence of the external cause; Z90.710 Acquired absence of both cervix and uterus; Z91.148 Patient's other noncompliance with medication regimen for other reason; Z88.6 Allergy status to analgesic agent; Z88.5 Allergy status to narcotic agent; Z88.0 Allergy status to penicillin; Z88.2 Allergy status to sulfonamides; Z86.73 Personal history of transient ischemic attack (TIA), and cerebral infarction without residual deficits; Z71.89 Other specified counseling
CPT/HCPCS: 36415; 36600; 70450; 71045; 80048; 80053; 80320; 81001; 82010; 82805; 82962; 83540; 83550; 83605; 83735; 83880; 84443; 84484; 85025; 85610; 86141; 93005; 97110; 97116; 97163; 97530; 99291; G0378; J1815; J2405

== ENCOUNTER 2024-01-03 13:58 | Inpatient (IN) | payer MEDICARE, OTHER ==
[~2024-01-03] VITALS: Ht 160 cm; Wt 54.0 kg
[~2024-01-03 13:58] MED LIST changes: +BUSP5TAB51 PO; +DIVA250T12 PO; -GLUC-244; -LEVO150T10 PO; +LEVO88TA4 PO; -LOS25T PO; +LOSA-534 PO
[2024-01-03] MEDS: SODIUM CHLORIDE 0.9% 1,000 ML IV ONE (14:15)
[2024-01-03] MEDS: DOPamine 1600MCG/ML D5W 250 ML IV ONE (16:28)
[2024-01-03 16:47] LABS: Basophils # (auto) 0 10 ^3/uL (0-0.2); Basophils % (auto) 0.2 % (0.0-2.0); Eosinophils # (auto) 0 10 ^3/uL (0-0.8); Eosinophils % (auto) 0.4 % (0.0-7.0); Hematocrit 39.5 % (36.0-46.0); Hemoglobin 12.8 g/dL (12.2-16.2); Lymphocytes # (auto) 1.6 10 ^3/uL (0.4-5.4); Lymphocytes % (auto) 22.6 % (10.0-50.0); Mean Corpuscular Hemoglobin 27.2 pg (28.0-32.0); Mean Corpuscular Hgb Conc. 32.4 g/dL (32.0-36.0); Mean Corpuscular Volume 84.1 fL (80.0-100.0); Monocytes # (auto) 0.4 10 ^3/uL (0-1.3); Monocytes % (auto) 5.9 % (0.0-12.0); Neutrophils % (auto) 70.9 % (37.0-80.0); Red Cell Distribution Width 14.8 % (11.8-14.3)
[2024-01-03 17:07] LABS: Alanine Aminotransferase 22 U/L (7-40); Albumin 3.7 g/dL (3.2-4.8); Alkaline Phosphatase 81 U/L (46-116); Anion Gap 11 (5-15); Aspartate Aminotransferase 19 U/L (13-40); BUN/Creatinine Ratio 17.1 (10.0-20.0); Blood Urea Nitrogen 36 mg/dL (9-23); Carbon Dioxide 24 mmol/L (20-30); Chloride 97 mmol/L (98-107); Cholesterol 143 mg/dL (< 200); HDL Cholesterol 40 mg/dL (40-59); LDL Cholesterol 79 mg/dL (< 100); Potassium 4.7 mmol/L (3.5-5.1); Sodium 132 mmol/L (136-145); Triglycerides 149 mg/dL (< 150)
[2024-01-03 17:08] LABS: Bilirubin, Total 0.5 mg/dL (0.2-1.0); Total Protein 6.7 g/dL (5.7-8.2)
[2024-01-03 17:15] LABS: Glucose 478 mg/dL (74-106)
[2024-01-03 17:25] LABS: Magnesium 2.2 mg/dL (1.6-2.6)
[2024-01-03 17:28] LABS: Lipase 22 U/L (12-53)
[2024-01-03] MEDS: DOPamine 1600MCG/ML D5W 250 ML IV SCH (17:30)
[2024-01-03 17:33] VITALS: PULSE 63; RESP 18; O2SAT 96
[2024-01-03] MEDS: GLUCAGON EMERG KIT 1mg/1ml IV ONE (17:45)
[2024-01-03 18:03] LABS: Urine Bacteria None Seen /hpf (None Seen)
[2024-01-03] MEDS: FUROSEMIDE 40 MG/4 ML VIAL IV ONE (18:15)
[2024-01-03] MEDS: INSULIN LISPRO (HUMAN) 100 UNITS/ML ML SC ONE (18:15)
[2024-01-03 18:18] LABS: Urine Blood Negative /uL (Negative); Urine Clarity Turbid (Clear); Urine Color Colorless (Yellow); Urine Protein, UAD Negative (Negative); Urine Specific Gravity 1.006 (1.001-1.035); Urine Urobilinogen Normal (Negative); Urine WBC 3 /hpf (0 - 5)
[2024-01-03 18:46] LABS: INR 1.06 (0.9-1.15); Partial Thromboplastin Time 29.2 SEC (24.5-34.5); Prothrombin Time 11.1 sec (9.3-11.8)
[2024-01-03 19:45] VITALS: PULSE 58; RESP 16; O2SAT 95
[2024-01-03] MEDS: LEVOTHYROXINE SODIUM 100 MCG/5 ML INJ IV ONE (20:05)
[2024-01-03] MEDS ORDERED: ONDANSETRON HCL 4 MG/2 ML VIAL IV PRN (21:30)
[2024-01-03] MEDS ORDERED: DOCUSATE SOD 100 MG CAP PO PRN (21:30)
[2024-01-03] MEDS ORDERED: DEXTROSE (50%) 50ML SYRG IV PRN (21:30)
[2024-01-03] MEDS: CARVEDILOL 3.125 MG TAB PO SCH (22:00)
[2024-01-03] MEDS: SODIUM CHLOR 0.9% PF (SALINE LOCK) 10ML VIAL/SYR IV SCH (22:00)
[2024-01-03] MEDS: ATROPINE SULF 1 MG/10ml SYR IV ONE (22:06)
[2024-01-03] MEDS: ATORVASTATIN 20 MG TAB PO SCH (22:45)
[2024-01-03] MEDS ORDERED: NITROGLYCERIN 0.4 MG SL TAB SL PRN (23:30)
[2024-01-03] MEDS: ACCU-CHEK COMFORT CURVE STRIP VI SCH (23:31)
[2024-01-03] MEDS: IBUPROFEN 600 MG TAB PO PRN (23:34)
[2024-01-03] MEDS: InsuLIN REG 1unit/0.01ml Soln (100units/ml) SC SCH (23:37)
[2024-01-04] MEDS: DEXTROSE (50%) 50ML SYRG IV ONE (04:53)
[2024-01-04] MEDS: DOPamine 1600MCG/ML D5W 250 ML IV SCH (04:59)
[2024-01-04 06:04] LABS: Basophils # (auto) 0 10 ^3/uL (0-0.2); Basophils % (auto) 0.3 % (0.0-2.0); Eosinophils # (auto) 0 10 ^3/uL (0-0.8); Eosinophils % (auto) 0.4 % (0.0-7.0); Hematocrit 38.7 % (36.0-46.0); Hemoglobin 12.5 g/dL (12.2-16.2); Lymphocytes # (auto) 0.9 10 ^3/uL (0.4-5.4); Lymphocytes % (auto) 16.4 % (10.0-50.0); Mean Corpuscular Hemoglobin 27.2 pg (28.0-32.0); Mean Corpuscular Hgb Conc. 32.3 g/dL (32.0-36.0); Mean Corpuscular Volume 84.2 fL (80.0-100.0); Monocytes # (auto) 0.5 10 ^3/uL (0-1.3); Monocytes % (auto) 9.7 % (0.0-12.0); Neutrophils % (auto) 73.2 % (37.0-80.0); Nucleated Red Blood Cells % 0.2 %; Red Blood Cells 4.59 10^6/uL (4.0-5.20); White Blood Cell 5.5 10^3/uL (4.4-10.8)
[2024-01-04 06:18] LABS: Alanine Aminotransferase 17 U/L (7-40); Albumin 3.7 g/dL (3.2-4.8); Alkaline Phosphatase 77 U/L (46-116); Anion Gap 8 (5-15); Aspartate Aminotransferase 16 U/L (13-40); Bilirubin, Total 0.5 mg/dL (0.2-1.0); Calcium 8.9 mg/dL (8.7-10.4); Carbon Dioxide 24 mmol/L (20-30); Chloride 107 mmol/L (98-107); Glucose 89 mg/dL (74-106); Potassium 3.4 mmol/L (3.5-5.1); Sodium 139 mmol/L (136-145)
[2024-01-04 06:20] LABS: Blood Urea Nitrogen 26 mg/dL (9-23)
[2024-01-04] MEDS: ACCU-CHEK COMFORT CURVE STRIP VI ONE (06:45)
[2024-01-04] MEDS: LEVOTHYROXINE SODIUM 100 MCG TAB PO SCH (06:45)
[2024-01-04] MEDS: InsuLIN REG 1unit/0.01ml Soln (100units/ml) SC ONE (06:46)
[2024-01-04 08:00] VITALS: PULSE 50; RESP 16; O2SAT 97
[2024-01-04] MEDS: POTASSIUM EFFERVESENT TAB 25 MEQ PO ONE (08:23)
[2024-01-04] MEDS: ASPirin 81 mg TAB PO SCH (08:24)
[2024-01-04] MEDS: FUROSEMIDE 20 MG/2 ML VIAL IV SCH (08:24)
[2024-01-04] MEDS: IBUPROFEN 800 MG TAB PO PRN (09:42)
[2024-01-04] MEDS ORDERED: IBUPROFEN 800 MG TAB PO PRN (10:15)
[2024-01-04] MEDS: ATROPINE SULF 1 MG/10ml SYR IV ONE (17:42)
[2024-01-04] MEDS ORDERED: DEXTROSE (50%) 50ML SYRG IV PRN (18:30)
[2024-01-04 20:00] VITALS: PULSE 89; RESP 18; O2SAT 96
[2024-01-05] VITALS (7 sets, daily range): BP systolic 134–156; BP diastolic 61–67; PULSE 62–68; RESP 14–17; TEMP 97.9–98.4; O2SAT 94–98
[2024-01-05] MEDS: InsuLIN REG 1unit/0.01ml Soln (100units/ml) SC SCH (00:01)
[2024-01-05] MEDS: ACCU-CHEK COMFORT CURVE STRIP VI SCH (00:01)
[2024-01-05] MEDS: INSULIN LANTUS (GLARGINE) 1 /0.01ml (100units/ml) SC ONE (02:20)
[2024-01-05 05:53] LABS: Chloride 98 mmol/L (98-107); Potassium 4.3 mmol/L (3.5-5.1)
[2024-01-05 05:54] LABS: Anion Gap 8 (5-15); Calcium 9.4 mg/dL (8.5-10.1); Carbon Dioxide 26 mmol/L (20-30)
[2024-01-05 05:59] LABS: BUN/Creatinine Ratio 17.3 (10.0-20.0); Blood Urea Nitrogen 29 mg/dL (9-23)
[2024-01-05 06:01] LABS: Sodium 132 mmol/L (136-145)
[2024-01-05 06:02] LABS: Glucose 414 mg/dL (74-106)
[2024-01-05] MEDS: InsuLIN REG 1unit/0.01ml Soln (100units/ml) IV ONE (06:21)
[2024-01-05] MEDS ORDERED: IBUPROFEN 600 MG TAB PO PRN ×2 (07:00)
[2024-01-05] MEDS: INSULIN LANTUS (GLARGINE) 1 /0.01ml (100units/ml) SC SCH (21:45)
[2024-01-06] VITALS (8 sets, daily range): BP systolic 139–165; BP diastolic 64–83; PULSE 60–83; RESP 16–19; TEMP 97.7–98.4; O2SAT 94–99
[2024-01-06 06:02] LABS: Anion Gap 7 (5-15); Carbon Dioxide 26 mmol/L (20-30); Chloride 104 mmol/L (98-107); Potassium 3.9 mmol/L (3.5-5.1); Sodium 137 mmol/L (136-145)
[2024-01-06 06:03] LABS: Calcium 9.3 mg/dL (8.5-10.1)
[2024-01-06 06:08] LABS: BUN/Creatinine Ratio 17.1 (10.0-20.0); Blood Urea Nitrogen 19 mg/dL (9-23); Glucose 63 mg/dL (74-106)
[2024-01-06] MEDS: hydrALAZINE HCL 20 MG/ML VL IV PRN (12:52)
[2024-01-06] MEDS: IBUPROFEN 400 MG TAB PO ONE (20:26)
[2024-01-06] MEDS: INSULIN LANTUS (GLARGINE) 1 /0.01ml (100units/ml) SC SCH (21:21)
[2024-01-07] VITALS (8 sets, daily range): BP systolic 125–155; BP diastolic 61–79; PULSE 59–82; RESP 15–18; TEMP 97.6–98.8; O2SAT 95–100
[2024-01-07] MEDS ORDERED: LEVO150T10 PO (10:39)
[2024-01-07 13:42] LABS: Chloride 98 mmol/L (98-107); Potassium 4.2 mmol/L (3.5-5.1); Sodium 134 mmol/L (136-145)
[2024-01-07 13:43] LABS: Anion Gap 7 (5-15); Calcium 9.6 mg/dL (8.5-10.1); Carbon Dioxide 29 mmol/L (20-30)
[2024-01-07 13:48] LABS: BUN/Creatinine Ratio 16.4 (10.0-20.0); Blood Urea Nitrogen 20 mg/dL (9-23); Glucose 276 mg/dL (74-106)
[2024-01-07] MEDS: INSULIN LANTUS (GLARGINE) 1 /0.01ml (100units/ml) SC SCH (21:24)
[2024-01-08] VITALS (9 sets, daily range): BP systolic 122–167; BP diastolic 59–85; PULSE 61–91; RESP 14–19; TEMP 97.2–98.1; O2SAT 94–97
[2024-01-08 06:11] LABS: Chloride 102 mmol/L (98-107); Sodium 135 mmol/L (136-145)
[2024-01-08 06:12] LABS: Anion Gap 4 (5-15); Carbon Dioxide 29 mmol/L (20-30)
[2024-01-08 06:13] LABS: Calcium 9.3 mg/dL (8.5-10.1)
[2024-01-08 06:17] LABS: BUN/Creatinine Ratio 15.3 (10.0-20.0); Blood Urea Nitrogen 17 mg/dL (9-23)
[2024-01-08 06:21] LABS: Glucose 119 mg/dL (74-106)
[2024-01-08] MEDS: INSULIN LANTUS (GLARGINE) 1 /0.01ml (100units/ml) SC SCH (21:20)
[2024-01-08] MEDS: diphenhdrAMINE HCL 50 MG/1 ML VL IV ONE (23:23)
[2024-01-09 04:52] VITALS: BP 123/55; PULSE 75; RESP 16; TEMP 97.9; O2SAT 96
[2024-01-09 08:00] VITALS: BP 123/66; PULSE 66; PULSE 70; RESP 17; TEMP 97.9; O2SAT 100
[2024-01-09 09:00] VITALS: BP 123/66; PULSE 66; RESP 17; TEMP 97.9; O2SAT 100
[2024-01-09 11:17] VITALS: BP 123/66; PULSE 55; TEMP 36.6
== END 2024-01-09 14:45 | disposition home health service (06) | DRG 682 ==
LOC: EDUNIT# 13:58 → ER 13:58 → EDBD 13:58 → TELE-WESTW 23:23 → TELE 23:23 → TELE-WESTW 01-05 15:29
PROVIDERS: ADMIT Nurse Practitioner Family; ATTEND Internal Medicine Geriatric Medicine
DX: N17.0 Acute kidney failure with tubular necrosis (principal); I50.33 Acute on chronic diastolic (congestive) heart failure; I13.0 Hypertensive heart and chronic kidney disease with heart failure and stage 1 through stage 4 chronic kidney disease, or unspecified chronic kidney disease; E87.1 Hypo-osmolality and hyponatremia; I95.2 Hypotension due to drugs; R00.1 Bradycardia, unspecified; I49.8 Other specified cardiac arrhythmias; E03.9 Hypothyroidism, unspecified; E11.65 Type 2 diabetes mellitus with hyperglycemia; E11.22 Type 2 diabetes mellitus with diabetic chronic kidney disease; E87.6 Hypokalemia; I44.7 Left bundle-branch block, unspecified; N18.32 Chronic kidney disease, stage 3b; E78.5 Hyperlipidemia, unspecified; F03.90 Unspecified dementia, unspecified severity, without behavioral disturbance, psychotic disturbance, mood disturbance, and anxiety; T46.1X5A Adverse effect of calcium-channel blockers, initial encounter; Z88.0 Allergy status to penicillin; Z80.49 Family history of malignant neoplasm of other genital organs; Z82.49 Family history of ischemic heart disease and other diseases of the circulatory system; Z83.3 Family history of diabetes mellitus; Z88.8 Allergy status to other drugs, medicaments and biological substances; Z86.73 Personal history of transient ischemic attack (TIA), and cerebral infarction without residual deficits; Z88.2 Allergy status to sulfonamides; Z90.710 Acquired absence of both cervix and uterus; Z79.4 Long term (current) use of insulin; Z88.6 Allergy status to analgesic agent; Y92.89 Other specified places as the place of occurrence of the external cause; T44.7X5A Adverse effect of beta-adrenoreceptor antagonists, initial encounter
CPT/HCPCS: 36415; 70450; 71045; 76775; 80048; 80053; 80061; 81001; 82010; 82962; 83036; 83605; 83690; 83735; 83880; 84443; 84484; 85025; 85610; 85730; 93005; 93306; 96361; 96365; 96366; 96372; 96375; 97110; 97116; 97163; G0378; J1815; J3490

== ENCOUNTER 2024-04-08 09:59 | Inpatient (IN) | payer MEDICARE, OTHER ==
[~2024-04-08] VITALS: Ht 152.4 cm; Wt 56.2 kg
[~2024-04-08 09:59] MED LIST changes: +LEVO150T10 PO; -LEVO88TA4 PO; -MET25T PO
[2024-04-08] MEDS: SODIUM CHLORIDE 0.9% 1,000 ML IV ONE (10:45)
[2024-04-08] MEDS: InsuLIN REG 1unit/0.01ml Soln (100units/ml) IV ONE (10:45)
[2024-04-08 11:06] LABS: Basophils # (auto) 0 10 ^3/uL (0-0.2); Basophils % (auto) 0.1 % (0.0-2.0); Eosinophils # (auto) 0 10 ^3/uL (0-0.8); Hematocrit 42.8 % (36.0-46.0); Hemoglobin 13.6 g/dL (12.2-16.2); Lymphocytes # (auto) 0.6 10 ^3/uL (0.4-5.4); Lymphocytes % (auto) 7.1 % (10.0-50.0); Mean Corpuscular Hemoglobin 27.6 pg (28.0-32.0); Mean Corpuscular Hgb Conc. 31.8 g/dL (32.0-36.0); Monocytes # (auto) 0.2 10 ^3/uL (0-1.3); Monocytes % (auto) 2.6 % (0.0-12.0); Neutrophils # (auto) 7.6 10 ^3/uL (1.6-8.6); Neutrophils % (auto) 90.2 % (37.0-80.0); Nucleated Red Blood Cells % 0.2 %; Red Blood Cells 4.92 10^6/uL (4.0-5.20); Red Cell Distribution Width 13.5 % (11.8-14.3); White Blood Cell 8.4 10^3/uL (4.4-10.8)
[2024-04-08 11:34] LABS: Alanine Aminotransferase 21 U/L (7-40); Albumin 4.8 g/dL (3.2-4.8); Alkaline Phosphatase 108 U/L (46-116); Anion Gap 24 (5-15); Aspartate Aminotransferase 22 U/L (13-40); BUN/Creatinine Ratio 21.5 (10.0-20.0); Bilirubin, Total 0.6 mg/dL (0.2-1.0); Blood Urea Nitrogen 58 mg/dL (9-23); Carbon Dioxide 12 mmol/L (20-30); Chloride 93 mmol/L (98-107); Creatine Kinase IFCC 225 U/L (34-145); Magnesium 2.4 mg/dL (1.6-2.6); Potassium 5.5 mmol/L (3.5-5.1); Sodium 129 mmol/L (136-145); Total Protein 8.4 g/dL (5.7-8.2)
[2024-04-08 11:37] LABS: Glucose 563 mg/dL (74-106)
[2024-04-08] MEDS: ONDANSETRON HCL 4 MG/2 ML VIAL IV ONE (11:40)
[2024-04-08 12:07] LABS: Base Excess -9.5 mmol/L (-2.0-2.0)
[2024-04-08] MEDS: SODIUM CHLORIDE 0.9% 1,000 ML IV SCH ×2 (12:17→14:39)
[2024-04-08] MEDS: ACCU-CHEK COMFORT CURVE STRIP VI SCH (12:24)
[2024-04-08] MEDS: INSULIN DRIP 100 UNIT/100ML 100 ML IV SCH (12:24)
[2024-04-08 13:30] VITALS: PULSE 114; RESP 30; O2SAT 92
[2024-04-08] MEDS ORDERED: NITROGLYCERIN 0.4 MG SL TAB SL PRN (13:45)
[2024-04-08] MEDS ORDERED: ONDANSETRON HCL 4 MG/2 ML VIAL IV PRN (13:45)
[2024-04-08] MEDS ORDERED: ACETAMINOPHEN 325 MG TAB PO PRN (13:45)
[2024-04-08] MEDS ORDERED: MORPHINE SULFATE INJ 2 MG/ml SYRG IV PRN (13:45)
[2024-04-08 14:12] LABS: Urine Bacteria None Seen /hpf (None Seen)
[2024-04-08 14:25] LABS: Protein, Urine 50.8 mg/dL (0.0-11.9)
[2024-04-08 14:28] LABS: Creatinine, Urine 72.72 mg/dL (30.0-125.0); Urine Blood 1+ /uL (Negative); Urine Clarity Turbid (Clear); Urine Color Light-Yellow (Yellow); Urine Protein, UAD 1+ (Negative); Urine Specific Gravity 1.011 (1.001-1.035); Urine Urobilinogen Normal (Negative); Urine WBC 17 /hpf (0 - 5)
[2024-04-08] MEDS: D5W/SOD CHL 0.45% 1,000 ML IV SCH (14:39)
[2024-04-08] MEDS ORDERED: SODIUM CHLORIDE 0.9% 1,000 ML IV SCH ×2 (15:45→17:45)
[2024-04-08 16:39] LABS: Free T3 1.88 pg/mL (2.3-4.2); Free T4 (Free Thyroxine) 1.99 ng/dL (0.89-1.76)
[2024-04-08 17:56] LABS: Sodium 139 mmol/L (136-145)
[2024-04-08 17:57] LABS: Anion Gap 10 (5-15); Carbon Dioxide 20 mmol/L (20-30)
[2024-04-08 17:58] LABS: Calcium 8.8 mg/dL (8.7-10.4)
[2024-04-08 18:02] LABS: Glucose 130 mg/dL (74-106)
[2024-04-08 18:03] LABS: BUN/Creatinine Ratio 23.3 (10.0-20.0)
[2024-04-08 18:21] LABS: Blood Urea Nitrogen 41 mg/dL (9-23); Chloride 109 mmol/L (98-107)
[2024-04-08] MEDS: HEPARIN SODIUM (PORCINE) 5000 UNITS/ML 1ML VIAL SC SCH (22:45)
[2024-04-08 23:59] LABS: Chloride 105 mmol/L (98-107); Potassium 3.8 mmol/L (3.5-5.1); Sodium 137 mmol/L (136-145)
[2024-04-09] LABS: Anion Gap 12 (5-15); Calcium 8.6 mg/dL (8.7-10.4); Carbon Dioxide 20 mmol/L (20-30)
[2024-04-09 00:05] LABS: BUN/Creatinine Ratio 20.1 (10.0-20.0); Blood Urea Nitrogen 33 mg/dL (9-23); Glucose 289 mg/dL (74-106)
[2024-04-09 05:29] LABS: Basophils # (auto) 0 10 ^3/uL (0-0.2); Basophils % (auto) 0.1 % (0.0-2.0); Eosinophils # (auto) 0 10 ^3/uL (0-0.8); Eosinophils % (auto) 0.3 % (0.0-7.0); Hematocrit 29.9 % (36.0-46.0); Hemoglobin 10.2 g/dL (12.2-16.2); Lymphocytes # (auto) 1.3 10 ^3/uL (0.4-5.4); Lymphocytes % (auto) 24.7 % (10.0-50.0); Mean Corpuscular Hemoglobin 27.9 pg (28.0-32.0); Mean Corpuscular Hgb Conc. 34.2 g/dL (32.0-36.0); Mean Corpuscular Volume 81.7 fL (80.0-100.0); Monocytes # (auto) 0.5 10 ^3/uL (0-1.3); Monocytes % (auto) 9.9 % (0.0-12.0); Neutrophils # (auto) 3.3 10 ^3/uL (1.6-8.6); Nucleated Red Blood Cells % 0.1 %; Red Blood Cells 3.66 10^6/uL (4.0-5.20); Red Cell Distribution Width 13.1 % (11.8-14.3); White Blood Cell 5.1 10^3/uL (4.4-10.8)
[2024-04-09 05:37] LABS: Alanine Aminotransferase 12 U/L (7-40); Albumin 3.2 g/dL (3.2-4.8); Alkaline Phosphatase 66 U/L (46-116); Anion Gap 8 (5-15); Aspartate Aminotransferase 15 U/L (13-40); BUN/Creatinine Ratio 19.7 (10.0-20.0); Blood Urea Nitrogen 29 mg/dL (9-23); Calcium 8.6 mg/dL (8.7-10.4); Carbon Dioxide 24 mmol/L (20-30); Chloride 108 mmol/L (98-107); Glucose 165 mg/dL (74-106); Phosphorus 2.8 mg/dL (2.4-5.1); Potassium 3.6 mmol/L (3.5-5.1); Sodium 140 mmol/L (136-145); Uric Acid 9.7 mg/dL (3.1-7.8)
[2024-04-09 05:38] LABS: Bilirubin, Total 0.4 mg/dL (0.2-1.0); Total Protein 5.8 g/dL (5.7-8.2)
[2024-04-09] MEDS ORDERED: DEXTROSE (50%) 50ML SYRG IV PRN ×2 (06:15→12:30)
[2024-04-09 07:25] VITALS: PULSE 68; RESP 12; O2SAT 97
[2024-04-09] MEDS: InsuLIN REG 1unit/0.01ml Soln (100units/ml) SC SCH ×3 (09:08→21:26)
[2024-04-09] MEDS: ACCU-CHEK COMFORT CURVE STRIP VI SCH ×2 (09:08→17:01)
[2024-04-09] MEDS: cefTRIAXone 1GM/50ML D5W 50 ML IV SCH (12:23)
[2024-04-09] MEDS: POTASSIUM EFFERVESENT TAB 25 MEQ PO ONE (12:23)
[2024-04-09] MEDS: SODIUM CHLORIDE 0.9% 1,000 ML IV SCH (13:00)
[2024-04-09 14:00] VITALS: BP 133/64; PULSE 76; RESP 18; TEMP 98.6; O2SAT 96
[2024-04-09] MEDS: INSULIN LANTUS (GLARGINE) 1 /0.01ml (100units/ml) SC ONE (14:00)
[2024-04-09 16:15] VITALS: BP 123/68; PULSE 71; RESP 20; TEMP 98.4; O2SAT 95
[2024-04-09 20:00] VITALS: PULSE 78; PULSE 91; RESP 18; O2SAT 93
[2024-04-09 21:00] VITALS: BP 137/58; PULSE 78; RESP 18; TEMP 98.7; O2SAT 93
[2024-04-09] MEDS: ATORVASTATIN 20 MG TAB PO SCH (21:27)
[2024-04-09] MEDS: busPIRone HCL 10 MG TAB PO SCH (21:27)
[2024-04-09] MEDS: INSULIN LANTUS (GLARGINE) 1 /0.01ml (100units/ml) SC SCH (21:28)
[2024-04-09] MEDS ORDERED: DIVALPROEX SODIUM 125 MG PO SCH (22:00)
[2024-04-10] VITALS (9 sets, daily range): BP systolic 92–162; BP diastolic 53–82; PULSE 67–89; RESP 14–18; TEMP 97.2–98.4; O2SAT 92–98
[2024-04-10] MEDS: TEMAZEPAM 15 MG CAP PO ONE
[2024-04-10 06:07] LABS: Basophils # (auto) 0 10 ^3/uL (0-0.2); Basophils % (auto) 0.3 % (0.0-2.0); Eosinophils # (auto) 0.1 10 ^3/uL (0-0.8); Eosinophils % (auto) 1.6 % (0.0-7.0); Hematocrit 30.6 % (36.0-46.0); Hemoglobin 10.4 g/dL (12.2-16.2); Lymphocytes # (auto) 1.2 10 ^3/uL (0.4-5.4); Lymphocytes % (auto) 38.2 % (10.0-50.0); Mean Corpuscular Hemoglobin 27.8 pg (28.0-32.0); Mean Corpuscular Hgb Conc. 33.9 g/dL (32.0-36.0); Mean Corpuscular Volume 81.9 fL (80.0-100.0); Monocytes # (auto) 0.4 10 ^3/uL (0-1.3); Monocytes % (auto) 12.5 % (0.0-12.0); Neutrophils # (auto) 1.5 10 ^3/uL (1.6-8.6); Neutrophils % (auto) 47.4 % (37.0-80.0); Nucleated Red Blood Cells % 0.1 %; Red Blood Cells 3.74 10^6/uL (4.0-5.20); Red Cell Distribution Width 13.4 % (11.8-14.3); White Blood Cell 3.2 10^3/uL (4.4-10.8)
[2024-04-10 06:20] LABS: Chloride 109 mmol/L (98-107); Potassium 3.6 mmol/L (3.5-5.1); Sodium 142 mmol/L (136-145)
[2024-04-10 06:21] LABS: Anion Gap 7 (5-15); Calcium 8.7 mg/dL (8.7-10.4); Carbon Dioxide 26 mmol/L (20-30)
[2024-04-10] MEDS: LEVOTHYROXINE SODIUM 50 MCG TAB PO SCH (06:21)
[2024-04-10 06:25] LABS: Uric Acid 6.6 mg/dL (3.1-7.8)
[2024-04-10 06:26] LABS: BUN/Creatinine Ratio 16.9 (10.0-20.0); Blood Urea Nitrogen 15 mg/dL (9-23); Glucose 77 mg/dL (74-106)
[2024-04-10] MEDS: NEUTRA-PHOS TABLET PO ONE ×2 (09:15→10:15)
[2024-04-10] MEDS: amLODIPine BESYLATE 5 MG TAB PO ONE (10:30)
[2024-04-10] MEDS: SODIUM CHLORIDE 0.9% 1,000 ML IV SCH (11:06)
[2024-04-10] MEDS ORDERED: DIVA1TAB37 PO (11:52)
[2024-04-10] MEDS: INSULIN LANTUS (GLARGINE) 1 /0.01ml (100units/ml) SC SCH (21:41)
[2024-04-11] VITALS (11 sets, daily range): BP systolic 140–184; BP diastolic 60–90; PULSE 72–112; RESP 16–20; TEMP 97.6–98.4; O2SAT 93–100
[2024-04-11] MEDS: amLODIPine BESYLATE 5 MG TAB PO SCH (09:35)
[2024-04-11] MEDS ORDERED: amLODIPine BESYLATE 5 MG TAB PO SCH (10:00)
[2024-04-11 14:10] LABS: Urine Bacteria None Seen /hpf (None Seen)
[2024-04-11 14:28] LABS: Urine Blood Negative /uL (Negative); Urine Clarity Clear (Clear); Urine Protein, UAD Negative (Negative); Urine Specific Gravity 1.012 (1.001-1.035); Urine Urobilinogen Normal (Negative); Urine WBC 1 /hpf (0 - 5)
[2024-04-11 14:56] LABS: Protein, Urine 9.2 mg/dL (0.0-11.9)
[2024-04-11 14:57] LABS: Creatinine, Urine 13.28 mg/dL (30.0-125.0)
[2024-04-11] MEDS: cloNIDine HCL 0.1 MG TAB PO PRN (21:46)
[2024-04-11] MEDS: MELATONIN 5 MG TAB PO ONE (23:50)
[2024-04-12] VITALS (7 sets, daily range): BP systolic 116–165; BP diastolic 65–78; PULSE 69–98; RESP 14–20; TEMP 97.8–98.9; O2SAT 95–98
[2024-04-12] MEDS: amLODIPine BESYLATE 5 MG TAB PO ONE (10:45)
[2024-04-12 11:56] LABS: Basophils # (auto) 0 10 ^3/uL (0-0.2); Basophils % (auto) 0.2 % (0.0-2.0); Eosinophils # (auto) 0.1 10 ^3/uL (0-0.8); Hematocrit 35.7 % (36.0-46.0); Hemoglobin 11.5 g/dL (12.2-16.2); Lymphocytes # (auto) 0.6 10 ^3/uL (0.4-5.4); Lymphocytes % (auto) 25.4 % (10.0-50.0); Mean Corpuscular Hemoglobin 27.3 pg (28.0-32.0); Mean Corpuscular Hgb Conc. 32.3 g/dL (32.0-36.0); Mean Corpuscular Volume 84.6 fL (80.0-100.0); Monocytes # (auto) 0.3 10 ^3/uL (0-1.3); Monocytes % (auto) 10.6 % (0.0-12.0); Neutrophils # (auto) 1.5 10 ^3/uL (1.6-8.6); Neutrophils % (auto) 60.8 % (37.0-80.0); Nucleated Red Blood Cells % 0.4 %; Red Blood Cells 4.22 10^6/uL (4.0-5.20); Red Cell Distribution Width 13.3 % (11.8-14.3); White Blood Cell 2.5 10^3/uL (4.4-10.8)
[2024-04-12 12:05] LABS: Chloride 103 mmol/L (98-107); Potassium 4.5 mmol/L (3.5-5.1)
[2024-04-12 12:06] LABS: Anion Gap 7 (5-15); Calcium 9.1 mg/dL (8.7-10.4); Carbon Dioxide 22 mmol/L (20-30)
[2024-04-12 12:08] LABS: Sodium 132 mmol/L (136-145)
[2024-04-12 12:11] LABS: Blood Urea Nitrogen 11 mg/dL (9-23)
[2024-04-12 12:13] LABS: Phosphorus 2.6 mg/dL (2.4-5.1)
[2024-04-12 12:20] LABS: Glucose 466 mg/dL (74-106)
[2024-04-12] MEDS: hydrOXYzine HCL 10 MG TAB PO PRN (13:44)
[2024-04-12] MEDS ORDERED: INSULIN LANTUS (GLARGINE) 1 /0.01ml (100units/ml) SC SCH (22:00)
[2024-04-13] MEDS ORDERED: amLODIPine BESYLATE 5 MG TAB PO SCH (10:00)
== END 2024-04-12 18:49 | disposition home health service (06) | DRG 637 ==
LOC: ER 09:59 → OVERFLOW 13:45 → TELE-WESTW 04-09 13:00 → WEST WING 04-10 15:03
PROVIDERS: ADMIT Internal Medicine; ATTEND Emergency Medicine
DX: E11.10 Type 2 diabetes mellitus with ketoacidosis without coma (principal); G92.8 Other toxic encephalopathy; N17.0 Acute kidney failure with tubular necrosis; I13.0 Hypertensive heart and chronic kidney disease with heart failure and stage 1 through stage 4 chronic kidney disease, or unspecified chronic kidney disease; I50.42 Chronic combined systolic (congestive) and diastolic (congestive) heart failure; G40.909 Epilepsy, unspecified, not intractable, without status epilepticus; E03.9 Hypothyroidism, unspecified; E78.5 Hyperlipidemia, unspecified; D69.6 Thrombocytopenia, unspecified; F01.50 Vascular dementia, unspecified severity, without behavioral disturbance, psychotic disturbance, mood disturbance, and anxiety; E11.22 Type 2 diabetes mellitus with diabetic chronic kidney disease; D64.9 Anemia, unspecified; E05.90 Thyrotoxicosis, unspecified without thyrotoxic crisis or storm; N18.31 Chronic kidney disease, stage 3a; Z79.4 Long term (current) use of insulin; Z88.5 Allergy status to narcotic agent; Z88.0 Allergy status to penicillin; Z79.899 Other long term (current) drug therapy; Z91.148 Patient's other noncompliance with medication regimen for other reason; Z88.6 Allergy status to analgesic agent; Z88.2 Allergy status to sulfonamides; Z91.09 Other allergy status, other than to drugs and biological substances; Z82.49 Family history of ischemic heart disease and other diseases of the circulatory system; Z80.49 Family history of malignant neoplasm of other genital organs; Z83.3 Family history of diabetes mellitus; Z86.73 Personal history of transient ischemic attack (TIA), and cerebral infarction without residual deficits; Z90.710 Acquired absence of both cervix and uterus
CPT/HCPCS: 36415; 36600; 71045; 74176; 76775; 80048; 80053; 80164; 80185; 81001; 82010; 82550; 82570; 82805; 82962; 83036; 83605; 83690; 83735; 83880; 83930; 84100; 84156; 84300; 84439; 84443; 84481; 84484; 84550; 85025; 87086; 93005; 96374; 96375; 97110; 97116; 97163; 99291; G0378; J1815; J2405

== ENCOUNTER 2024-08-07 14:34 | Inpatient (IN) | payer OTHER, MEDICARE ==
[~2024-08-07] VITALS: Ht 152.4 cm; Wt 57.5 kg
[~2024-08-07 14:34] MED LIST changes: +DIVA1TAB37 PO; -DIVA250T12 PO
--- NOTE | 2024-08-07 15:07 | ED.PDOC ---
History of present illness HPI Comments HPI: Poor Historian. 78 y.o female BIB spouse, presents to the ED for an evaluation of hyperglycemia. Spouse reports x 1 hour ago patient became incoherent, states similar symptoms in the past due to hyperglycemia events leading to DKA. Spouse mentions last admission for DKA was 6 months ago. Patient at this time is a poor historian. Patient is on insulin, per spouse, is compliant with medication. Patient's blood glucose at 1300 read 218 when spouse checked it at home and upon ED arrival, it read 468. Patient is not on any water pills at this time. Patient reports allergies to Adhesive tape, acetaminophen, hydrocodone, penicillins and sulfa Vitals BP: 100/45 HR: 75 Temp: 97.1 F SpO2: 95% RA RR: 18 Past medical history: DM, DKA, CHF, HTN, hyperlipidemia, thyroid disease, TIA, dementia Past surgical history: Hysterectomy REVIEW OF SYSTEMS: CONSTITUTIONAL: Denies acute: fever, diaphoresis, chills, HEAD: Denies acute: headache, photophobia Eyes: Denies acute: Double vision, vision loss, eye pain, eye discharge. EARS: Denies acute: tinnitus, hearing loss, ear discharge, ear pain, THROAT: Denies acute: sore throat, swelling, difficulty swallowing , pain with swallow ing, change in voice. NECK: Denies acute: neck pain, neck swelling, stiff neck. HEART: Denies acute : chest pain, palpitations, LUNGS: Denies acute: SOB, wheezing, cough, hemoptysis ABDOMEN: Denies acute: abdominal pain, diarrhea, melena , hematemesis, hematochezia SKIN: Denies acute: rash, redness, lesions, itchiness. EXTREMITIES: Denies acute: calf pain, numbness, tingling, weakness, denies pain in extremity. Denies acute: Low back pain. Neuro: Denies acute: focal neurological deficit, motor or sensory focal neurological deficit, tremors, seizure like activity, confusion, dizziness, change in mental status, loss of bowel or bladder function, cauda equina like symptoms. : Denies acute: dysuria, hematuria, flank pain, increase in urinary frequency. PSYCH: Denies acute: hallucination, suicidal ideation, homicidal ideation. FEMALE: Denies acute: abnormal vaginal bleeding, foul odor, unusual discharge. PHYSICAL EXAM: General: Mild acute distress, awake and alert. Head: normocephalic, atraumatic. Neck: supple, trachea is midline, no swelling. Throat: Normal phonation. Eyes:, no erythema, no purulent discharge, no proptosis, no icterus. Heart: regular rate, regular rhythm, no significant murmur appreciated. Lungs: no apparent respiratory distress, Able to speak in full sentences. No wheezing, no rhonchi, no crackles. No stridors Clear to auscultation bilaterally. Abdomen: non tender to palpation, non distended, soft, no guarding, no rebound, + bowel sounds. Neuro: Awake, Alert, oriented to name, self, situation, follows commands GCS=15. Speech is normal. Skin: no petechia, no purpura, no cyanosis, non-pale, not jaundice. Lower extremities: --no - Pitting edema no deformity, no focal swelling, no calf TTP. Makes eye contact. moves all four extremities. Face: no apparent facial droop. Chief Complaint: General Weakness Time Seen by MD: 14:53 Primary Care Provider: MUKUND History of present illness: Nurses Notes, Allergies Allergies: Coded Allergies: Acetaminophen (Verified Allergy, Unknown, 05/08/23) Hydrocodone (Verified Allergy, Unknown, 05/08/23) Penicillins (Unverified Allergy, Unknown, 04/24/15) Uncoded Allergies: ADHESIVE TAPES (Allergy, Unknown, 05/08/23) SULFA (Allergy, Unknown, 05/08/23) Home Meds Active Scripts Losartan Potassium (Losartan Potassium) 50 Mg Tab, 50 MG PO DAILY, #30 TAB 3 Refills Prov:ROSAMARIA FLOYD RESIDENT 10/26/23 Insulin Glargine (Lantus) 100 Unit/Ml Inj, 25 UNITS SC QAM, #10 INJ Prov:JOSE DALEY MD 03/30/22 Reported Medications Divalproex Sodium (Divalproex Sodium Dr) 125 Mg Tab, 125 MG PO BID, TAB 04/10/24 Levothyroxine Sodium (Levothyroxine Sodium) 150 Mcg Tab, 1 TAB PO DAILY 01/07/24 Buspirone Hcl (Buspirone Hcl) 5 Mg Tab, 1 TAB PO BID 10/24/23 Insulin Lispro (Humalog Kwikpen) 100 Unit/Ml Inj, 5 UNITS SC TID BREAKFAST,LUNCH,DINNER 03/08/22 Amlodipine Besylate (Amlodipine Besylate) 10 Mg Tab, 1 TAB PO DAILY 03/08/22 Atorvastatin Calcium (ATORVASTATIN CALCIUM) 40 Mg Tab, 1 TAB PO DAILY 03/08/22 Furosemide (Furosemide) 40 Mg Tab, 1 TAB PO DAILY 03/08/22 Information Source: Patient, Spouse Mode of Arrival: Wheelchair Past Medical History PAST MEDICAL HISTORY: CHF, DM, High Lipids, HTN, Thyroid, TIA Surgical History: Hysterectomy 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 Was a procedure done?: No Differential Diagnosis (DM) Differential Diagnosis: Dehydration, Diabetic Coma, DKA, Electrolyte Abnormalit y, Hyperglycemia, Hyperosmolar State, Other (Includes but not limited to thyroid disease, encephalopathy, electrolyte abnormality, sepsis, infection, intracranial pathology, drug adverse effects, arrhythmia, kidney insufficiency, ACS, CVA, malignancy, anemia) X-Ray, Labs, Meds, VS Vital Signs Date Time Temp Pulse Resp B/P (MAP) Pulse Ox O2 Delivery O2 Flow Rate FiO2 08/07/24 18:34 97.5 91 22 132/51 (78) 93 97.5 08/07/24 14:47 87 08/07/24 14:45 97.1 75 18 100/45 (63) 95 08/07/24 14:45 97.1 75 18 100/45 (63) 95 97.1 Lab Test 08/07/24 19:39 08/07/24 17:12 08/07/24 16:12 08/07/24 15:33 Range/Units Blood Gas Specimen Type Arterial Arterial Blood Gas Sample Site Right radial Right brachial Blood Gas Patient Temperature 37.0 37.0 Arterial Blood Date Drawn [id number] Arterial Blood pH 7.196 *L 7.331 L 7.350-7.450 Arterial Blood Partial Pressure CO2 25.7 L 30.9 L 32.0-45.0 mmHg Arterial Blood Partial Pressure O2 102.0 79.7 L 83.0-108.0 mmHg Arterial Blood HCO3 9.7 L 16.0 L 21.0-28.0 mmol/L Arterial Blood Oxygen Saturation 96.7 94.8 94.0-98.0 % Arterial Blood Base Excess -16.7 L -8.7 L -2.0-3.0 mmol/L Arterial Blood Oxyhemoglobin 95.5 93.5 L 94.0-98.0 % Arterial Blood Carboxyhemoglobin 0.5 0.9 0.5-1.5 % Arterial Blood Methemoglobin 0.7 0.5 0.0-1.5 % Hesham Test Yes N/a Blood Gas Total Hemoglobin 13.40 13.70 12.0-16.0 g/dL Blood Gas Liter Flow 2.00 Blood Gas Modality Nasal cannula Room air FiO2 % 28.0 21.0 Blood Gas Critical Value Read Back Yes Blood Gas Notified Whom apoorva Griffith Blood Gas Notified Time [id number] Blood Gas Notified By Dhruv ridley White Blood Count 11.3 #H 4.4-10.8 10^3/uL Red Blood Count 4.98 4.0-5.20 10^6/uL Hemoglobin 13.5 12.2-16.2 g/dL Hematocrit 42.0 36.0-46.0 % Mean Corpuscular Volume 84.4 80.0-100.0 fL Mean Corpuscular Hemoglobin 27.0 L 28.0-32.0 pg Mean Corpuscular Hemoglobin Concent 32.0 32.0-36.0 g/dL Red Cell Distribution Width 13.4 11.8-14.3 % Platelet Count 216 140-450 10^3/uL Mean Platelet Volume 9.1 6.9-10.8 fL Neutrophils (%) (Auto) 82.3 H 37.0-80.0 % Lymphocytes (%) (Auto) 11.5 10.0-50.0 % Monocytes (%) (Auto) 5.9 0.0-12.0 % Eosinophils (%) (Auto) 0.1 0.0-7.0 % Basophils (%) (Auto) 0.2 0.0-2.0 % Neutrophils # (Auto) 9.3 H 1.6-8.6 10 ^3/uL Lymphocytes # (Auto) 1.3 0.4-5.4 10 ^3/uL Monocytes # (Auto) 0.7 0-1.3 10 ^3/uL Eosinophils # (Auto) 0 0-0.8 10 ^3/uL Basophils # (Auto) 0 0-0.2 10 ^3/uL Nucleated Red Blood Cells 0.0 % Sodium Level 132 L 136-145 mmol/L Potassium Level 5.1 3.5-5.1 mmol/L Chloride Level 95 L 98-107 mmol/L Carbon Dioxide Level 16 L 20-31 mmol/L Anion Gap 21 H 5-15 Blood Urea Nitrogen 33 H 9-23 mg/dL Creatinine 1.86 H 0.550-1.02 mg/dL Glomerular Filtration Rate Calc 27 >90 mL/min BUN/Creatinine Ratio 17.7 10.0-20.0 Serum Glucose 600 *H 74-106 mg/dL Lactic Acid Level 5.6 *H 0.4-2.0 mmol/L Calcium Level 10.2 8.7-10.4 mg/dL Phosphorus Level 5.9 H 2.4-5.1 mg/dL Magnesium Level 2.3 1.6-2.6 mg/dL Beta-Hydroxybutyric Acid > 4.500 H < 0.4 mmol/L Serum Osmolality 326 H 278-298 mOsm/kg Test 08/07/24 15:05 08/07/24 14:44 Range/Units White Blood Count 5.5 4.4-10.8 10^3/uL Red Blood Count 4.71 4.0-5.20 10^6/uL Hemoglobin 12.9 12.2-16.2 g/dL Hematocrit 38.9 36.0-46.0 % Mean Corpuscular Volume 82.6 80.0-100.0 fL Mean Corpuscular Hemoglobin 27.4 L 28.0-32.0 pg Mean Corpuscular Hemoglobin Concent 33.1 32.0-36.0 g/dL Red Cell Distribution Width 13.5 11.8-14.3 % Platelet Count 213 140-450 10^3/uL Mean Platelet Volume 9.1 6.9-10.8 fL Neutrophils (%) (Auto) 64.5 37.0-80.0 % Lymphocytes (%) (Auto) 27.2 10.0-50.0 % Monocytes (%) (Auto) 7.3 0.0-12.0 % Eosinophils (%) (Auto) 0.7 0.0-7.0 % Basophils (%) (Auto) 0.3 0.0-2.0 % Neutrophils # (Auto) 3.5 1.6-8.6 10 ^3/uL Lymphocytes # (Auto) 1.5 0.4-5.4 10 ^3/uL Monocytes # (Auto) 0.4 0-1.3 10 ^3/uL Eosinophils # (Auto) 0 0-0.8 10 ^3/uL Basophils # (Auto) 0 0-0.2 10 ^3/uL Nucleated Red Blood Cells 0.1 % Sodium Level 130 L 136-145 mmol/L Potassium Level 4.9 3.5-5.1 mmol/L Chloride Level 98 98-107 mmol/L Carbon Dioxide Level 16 L 20-31 mmol/L Anion Gap 16 H 5-15 Blood Urea Nitrogen 30 H 9-23 mg/dL Creatinine 1.75 H 0.550-1.02 mg/dL Glomerular Filtration Rate Calc 29 >90 mL/min BUN/Creatinine Ratio 17.1 10.0-20.0 Serum Glucose 541 *H 74-106 mg/dL Lactic Acid Level 3.4 *H 0.4-2.0 mmol/L Calcium Level 10.0 8.7-10.4 mg/dL Magnesium Level 2.3 1.6-2.6 mg/dL Total Bilirubin 0.7 0.2-1.0 mg/dL Aspartate Amino Transferase (AST) 12 L 13-40 U/L Alanine Aminotransferase (ALT) 13 7-40 U/L Alkaline Phosphatase 116 46-116 U/L Troponin I High Sensitivity 14 </=34 ng/L Total Protein 7.4 5.7-8.2 g/dL Albumin 4.1 3.2-4.8 g/dL Beta-Hydroxybutyric Acid 3.719 H < 0.4 mmol/L POC Glucose 437 *H 70-106 mg/dl Current Medications Medications (Trade) Dose Ordered Sig/Reza Route Start Time Stop Time Status Last Admin Sodium Chloride 1,000 ml @ 1,000 mls/hr Q1H ONCE IV 08/07/24 15:00 08/07/24 15:59 DC 08/07/24 18:11 Insulin Human Regular (InsuLIN R) 5 units ONCE ONCE IV 08/07/24 15:00 08/07/24 15:03 DC 08/07/24 18:48 Sodium Chloride 1,000 ml @ 500 mls/hr Q2H IV 08/07/24 16:45 08/07/24 19:23 DC 08/07/24 18:12 Insulin Human (Reg)/Sodium Chloride 100 ml @ 0.5 mls/hr Q24H IV 08/07/24 16:45 08/07/24 19:24 DC 08/07/24 18:53 Diagnostic Test (Pha) (Accu-Chek Comfort Curve T) 1 strip Q90MIN 08/07/24 18:00 08/07/24 19:24 DC 08/07/24 18:16 Insulin Human (Reg)/Sodium Chloride 100 ml @ 0.5 mls/hr Q24H IV 08/07/24 19:15 08/07/24 19:30 Diagnostic Test (Pha) (Accu-Chek Comfort Curve T) 1 strip Q90MIN 08/07/24 19:30 08/07/24 19:57 Insulin Glargine (Lantus) 15 units ONCE ONCE SC 08/07/24 19:15 08/07/24 19:25 DC 08/07/24 19:30 Ondansetron HCl (Zofran) 4 mg Q4HP PRN IV 08/07/24 19:30 08/07/24 20:07 [place] [id number] Ph: [phone] DIAGNOSTIC IMAGING Diagnostic Imaging Report : [id number] Signed PATIENT: ALLAN SWANSON ACCT: [id number] UNIT: [id number] : 1945 LOC: ER ROOM / BED: / AGE / SEX: 78 / F ADM STATUS: REG ER SERVICE 1500 ORDERING PHYSICIAN: YAEL AG DO PROCEDURE(s): CXRP - CHEST PORTABLE REASON: hyperglycemia h/o DKA ORDER NUMBER(s): [id number], ACCESSION NUMBER(s): [id number] CHEST RADIOGRAPH Indication: hyperglycemia h/o DKA Technique: Single frontal view of the chest was obtained Comparison: XY CHEST PORTABLE on DOS: 04/08/24, XY CHEST PORTABLE on DOS: 12/15 06/09, XY CHEST PORTABLE on DOS: 10/23/23, XY CHEST PORTABLE on DOS: 07/27/23, XY CHEST PORTABLE on DOS: 05/08/23 FINDINGS: Lines and Tubes: None Lungs: No focal consolidation. Pleura: No effusion. No pneumothorax. Cardiomediastinal contours: Unremarkable Bones: No acute osseous abnormality. IMPRESSION: No acute cardiopulmonary disease. ATED BY: EMILI BLUM MD DICTATED DATE/TIME: 08/07/241551 SIGNED BY: EMILI BLUM MD SIGNED DATE/TIME: 08/07/241551 CC: Time of 1ST Reevaluation: 15:01 Reevaluation 1ST: Unchanged Patient Education/Counseling: Diagnosis, Treatment Family Education/Counseling: Diagnosis, Treatment Comments Patient presented with the above HPI.---generalized weakness/hyperglycem ia---workup was initiated. patient was found with the above mentioned diagnosis. Patient was given: DKA protocol was initiated, fluids, bicarb amp Patient ED course and VS have been stabilized. Patient has been reassessed in the ED and remained in a stable condition. Pertinent incidental findings were discussed with the patient and/or family. Patient/family voices understanding and is agreeable with plan. Patient has been observed in the ED adequate length of time to insure improvement/stability. patient was admitted to the medicine team for further evaluation and treatment of their presentation. All the reports of any imaging studies that were ordered by myself were reviewed by myself. Departure 1 Departure Time of Disposition: 16:44 Impression: Primary Impression: DKA (diabetic ketoacidosis) Disposition: ADMITTED INPATIENT Admit to: ICU Condition: Guarded Discharged With: Spouse Critical Care Note Critical Care Time?: Yes (45 min-critical care time only) I personally scribed for YAEL AG DO ([email or web address]) on 08/07/24 at 15:07. Electronically submitted by Dianna Boyd ([facility]). I personally scribed for YAEL AG DO ([email or web address]) on 08/07/24 at 15:09. Electronically submitted by Dianna Boyd ([facility]). I personally scribed for YAEL AG DO ([email or web address]) on 08/07/24 at 15:14. E lectronically submitted by Dianna Boyd ([facility]). I personally scribed for YAEL AG DO ([email or web address]) on 08/07/24 at 15:19. Kaleigh ctronically submitted by Dianna Boyd ([facility]). I personally scribed for YAEL AG DO ([email or web address]) on 08/07/24 at 16:45. Elect ronically submitted by Dianna Boyd ([facility]). YAEL AG DO Aug 07, 2024 15:07
[2024-08-07 15:33] LABS: Basophils # (auto) 0 10 ^3/uL (0-0.2); Basophils % (auto) 0.3 % (0.0-2.0); Eosinophils # (auto) 0 10 ^3/uL (0-0.8); Eosinophils % (auto) 0.7 % (0.0-7.0); Hematocrit 38.9 % (36.0-46.0); Hemoglobin 12.9 g/dL (12.2-16.2); Lymphocytes # (auto) 1.5 10 ^3/uL (0.4-5.4); Lymphocytes % (auto) 27.2 % (10.0-50.0); Mean Corpuscular Hemoglobin 27.4 pg (28.0-32.0); Mean Corpuscular Hgb Conc. 33.1 g/dL (32.0-36.0); Mean Corpuscular Volume 82.6 fL (80.0-100.0); Monocytes # (auto) 0.4 10 ^3/uL (0-1.3); Monocytes % (auto) 7.3 % (0.0-12.0); Neutrophils # (auto) 3.5 10 ^3/uL (1.6-8.6); Neutrophils % (auto) 64.5 % (37.0-80.0); Nucleated Red Blood Cells % 0.1 %; Platelet Count (auto) 213 10^3/uL (140-450); Red Blood Cells 4.71 10^6/uL (4.0-5.20); Red Cell Distribution Width 13.5 % (11.8-14.3); White Blood Cell 5.5 10^3/uL (4.4-10.8)
[2024-08-07 15:37] LABS: Base Excess -8.7 mmol/L (-2.0-3.0)
[2024-08-07 15:54] LABS: Alanine Aminotransferase 13 U/L (7-40); Albumin 4.1 g/dL (3.2-4.8); Alkaline Phosphatase 116 U/L (46-116); Anion Gap 16 (5-15); Aspartate Aminotransferase 12 U/L (13-40); BUN/Creatinine Ratio 17.1 (10.0-20.0); Bilirubin, Total 0.7 mg/dL (0.2-1.0); Blood Urea Nitrogen 30 mg/dL (9-23); Carbon Dioxide 16 mmol/L (20-31); Chloride 98 mmol/L (98-107); Magnesium 2.3 mg/dL (1.6-2.6); Potassium 4.9 mmol/L (3.5-5.1); Sodium 130 mmol/L (136-145); Total Protein 7.4 g/dL (5.7-8.2)
--- NOTE | 2024-08-07 15:54 | DVH ---
CHEST RADIOGRAPH Indication: hyperglycemia h/o DKA Technique: Single frontal view of the chest was obtained Comparison: XY CHEST PORTABLE on DOS: 04/08/24, XY CHEST PORTABLE on DOS: 01/03/24, XY CHEST PORTABLE o n DOS: 10/23/23, XY CHEST PORTABLE on DOS: 07/27/23, XY CHEST PORTABLE on DOS: 05/08/23 FINDINGS: Lines and Tubes: None Lungs: No focal consolidation. Pleura: No effusion. No pneumothorax. Cardiomediastinal contours: Unremarkable Bones: No acute osseous abnormality. IMPRESSION: No acute cardiopulmonary disease.
[2024-08-07 16:01] LABS: Lactic Acid w/Reflex 3.4 mmol/L (0.4-2.0)
[2024-08-07 16:02] LABS: Glucose 541 mg/dL (74-106)
[2024-08-07] MEDS ORDERED: DEXTROSE (50%) 50ML SYRG IV PRN ×2 (16:45→19:15)
[2024-08-07 17:26] LABS: Basophils # (auto) 0 10 ^3/uL (0-0.2); Basophils % (auto) 0.2 % (0.0-2.0); Eosinophils # (auto) 0 10 ^3/uL (0-0.8); Eosinophils % (auto) 0.1 % (0.0-7.0); Hemoglobin 13.5 g/dL (12.2-16.2); Lymphocytes # (auto) 1.3 10 ^3/uL (0.4-5.4); Lymphocytes % (auto) 11.5 % (10.0-50.0); Mean Corpuscular Volume 84.4 fL (80.0-100.0); Monocytes # (auto) 0.7 10 ^3/uL (0-1.3); Monocytes % (auto) 5.9 % (0.0-12.0); Neutrophils # (auto) 9.3 10 ^3/uL (1.6-8.6); Neutrophils % (auto) 82.3 % (37.0-80.0); Platelet Count (auto) 216 10^3/uL (140-450); Red Blood Cells 4.98 10^6/uL (4.0-5.20); Red Cell Distribution Width 13.4 % (11.8-14.3); White Blood Cell 11.3 10^3/uL (4.4-10.8)
[2024-08-07 17:38] LABS: Chloride 95 mmol/L (98-107); Potassium 5.1 mmol/L (3.5-5.1); Sodium 132 mmol/L (136-145)
[2024-08-07 17:39] LABS: Anion Gap 21 (5-15); Calcium 10.2 mg/dL (8.7-10.4); Carbon Dioxide 16 mmol/L (20-31)
[2024-08-07 17:44] LABS: BUN/Creatinine Ratio 17.7 (10.0-20.0); Blood Urea Nitrogen 33 mg/dL (9-23)
[2024-08-07 17:45] LABS: Magnesium 2.3 mg/dL (1.6-2.6)
[2024-08-07 17:46] LABS: Phosphorus 5.9 mg/dL (2.4-5.1)
[2024-08-07 17:53] LABS: Glucose 600 mg/dL (74-106)
[2024-08-07] MEDS: SODIUM CHLORIDE 0.9% 1,000 ML IV ONE (18:11)
[2024-08-07] MEDS: SODIUM CHLORIDE 0.9% 1,000 ML IV SCH ×2 (18:12→23:05)
[2024-08-07] MEDS: ACCU-CHEK COMFORT CURVE STRIP VI SCH ×2 (18:16→19:57)
[2024-08-07] MEDS: InsuLIN REG 1unit/0.01ml Soln (100units/ml) IV ONE (18:48)
[2024-08-07] MEDS: INSULIN DRIP 100 UNIT/100ML 100 ML IV SCH ×2 (18:53→19:30)
[2024-08-07] MEDS ORDERED: NITROGLYCERIN 0.4 MG SL TAB SL PRN (19:30)
[2024-08-07] MEDS ORDERED: MORPHINE SULFATE INJ 2 MG/ml SYRG IV PRN (19:30)
[2024-08-07] MEDS: INSULIN LANTUS (GLARGINE) 1 /0.01ml (100units/ml) SC ONE (19:30)
--- NOTE | 2024-08-07 19:41 | DVHHP2 ---
History of Present Illness Reason for Visit: hyperglycemia History of Present Illness Fariba Diaz is an 78-year-old female with past medical history of diabetes, hypertension, CHF, chronic kidney disease, hypertension, hyperlipidemia, dementia, and hypothyroidism, who was brought in by family for altered level of consciousness. On assessment patient is only able to tell me her name. Her son is at the bedside and provided me with most of the history. Per the son, the patient was in the bathroom for over 30 minutes, when they went in to check on her she was slumped over and not incoherent. He states that she has been like this before when her blood sugar levels become to high. He states she has been a dmitted for DKA before this year. 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 SUPERVISOR: Other (TIA's, and Dementia) Renal/: Chronic renal insuff Endocrine: Diabetes Past Surgical History: Hysterectomy Smoke: No ALCOHOL: none Drugs: None Lives: with Family Domestic Violence: Neg Review of Systems Constitutional: No: Fever, Chills, Sweats, Weakness, Malaise, Other Eyes: No: Pain, Vision change, Conjunctivae inflammation, Eyelid inflammation, Other, Redness ENT: No: Ear pain, Ear discharge, Nose pain, Nose discharge, Nose congestion, Mouth pain, Mouth swelling, Throat pain, Throat swelling, Other Respiratory: No: Cough, Dry, Shortness of breath, SOB with excertion, Wheezing, Hemoptysis, Pleuritic Pain, Sputum, Wheezing, Other Cardiovascular: No: Chest Pain, Palpitations, Orthopnea, Paroxysmal Noc. Dyspnea, Edema, Lt Headedness, Other Gastrointestinal: No: Nausea, Vomiting, Abdominal Pain, Diarrhea, Constipation, Melena, Hematochezia, Other Genitourinary: No Dysuria, No Frequency, No Incontinence, No Hematuria, No Re tention, No Other Musculoskeletal: No: other, neck pain, shoulder pain, arm pain, back pain, hand pain, leg pain, foot pain Skin: No: Rash, Lesions, Jaundice, Bruising, Other Neurological: Weakness, Incoordination, Change in speech, Confusion; No: Numbness, Seizures, Other Allergies: Coded Allergies: Acetaminophen (Verified Allergy, Unknown, 05/08/23) Hydrocodone (Verified Allergy, Unknown, 05/08/23) Penicillins (Unverified Allergy, Unknown, 04/24/15) Uncoded Allergies: ADHESIVE TAPES (Allergy, Unknown, 05/08/23) SULFA (Allergy, Unknown, 05/08/23) Medications Current Medications Medications Dose Ordered Sig/Reza Route Start Time Stop Time Status Last Admin Dose Admin Sodium Chloride 1,000 ml @ 250 mls/hr Q4H IV 08/07/24 23:15 08/08/24 01:14 Sodium Chloride 1,000 ml @ 150 mls/hr Q6H40M IV 08/08/24 01:15 Insulin Human (Reg)/Sodium Chloride 100 ml @ 0.5 mls/hr Q24H IV 08/07/24 19:15 Dextrose 50 ml UD PRN IV 08/07/24 19:15 Diagnostic Test (Pha) 1 strip Q90MIN 08/07/24 19:30 Insulin Glargine 15 units DAILY SC 08/08/24 10:00 Sodium Chloride 10 ml Q8HR IV 08/07/24 22:00 Acetaminophen/ Hydrocodone Bitart 1 tab Q4HP PRN PO 08/07/24 19:30 Ondansetron HCl 4 mg Q4HP PRN IV 08/07/24 19:30 Acetaminophen 650 mg Q6HP PRN PO 08/07/24 19:30 Nitroglycerin 0.4 mg Q5MINP PRN SL 08/07/24 19:30 Morphine Sulfate 2 mg Q30M PRN IV 08/07/24 19:30 Exam Vital Signs Vital Signs Date Time Temp Pulse Resp B/P (MAP) Pulse Ox O2 Delivery O2 Flow Rate FiO2 08/07/24 18:34 97.5 91 22 132/51 (78) 93 97.5 General Appearance: Other (Drowsy, Oriented x 1) HEENT: Atraumatic, PERRLA Respiratory: Clear to auscultation, Normal air movement Cardiovascular: Regular rate, Normal S1, Normal S2 Abdominal: Normal bowel sounds, Soft, No tenderness, No hepatospenomegaly Extremities: No clubbing, No cyanosis, No edema, Normal pulses Skin: No rashes, No breakdown, No significant lesion Neuro: Normal gait, Normal speech, Strength at 5/5 X4 ext Psych/Mental Status: Mental status NL, Mood NL Labs/Xrays Labs Test 08/07/24 17:12 08/07/24 16:12 08/07/24 15:33 08/07/24 15:05 Range/Units White Blood Count 11.3 #H 4.4-10.8 10^3/uL Red Blood Count 4.98 4.0-5.20 10^6/uL Hemoglobin 13.5 12.2-16.2 g/dL Hematocrit 42.0 36.0-46.0 % Mean Corpuscular Volume 84.4 80.0-100.0 fL Mean Corpuscular Hemoglobin 27.0 L 28.0-32.0 pg Mean Corpuscular Hemoglobin Concent 32.0 32.0-36.0 g/dL Red Cell Distribution Width 13.4 11.8-14.3 % Platelet Count 216 140-450 10^3/uL Mean Platelet Volume 9.1 6.9-10.8 fL Neutrophils (%) (Auto) 82.3 H 37.0-80.0 % Lymphocytes (%) (Auto) 11.5 10.0-50.0 % Monocytes (%) (Auto) 5.9 0.0-12.0 % Eosinophils (%) (Auto) 0.1 0.0-7.0 % Basophils (%) (Auto) 0.2 0.0-2.0 % Neutrophils # (Auto) 9.3 H 1.6-8.6 10 ^3/uL Lymphocytes # (Auto) 1.3 0.4-5.4 10 ^3/uL Monocytes # (Auto) 0.7 0-1.3 10 ^3/uL Eosinophils # (Auto) 0 0-0.8 10 ^3/uL Basophils # (Auto) 0 0-0.2 10 ^3/uL Nucleated Red Blood Cells 0.0 % Sodium Level 132 L 136-145 mmol/L Potassium Level 5.1 3.5-5.1 mmol/L Chloride Level 95 L 98-107 mmol/L Carbon Dioxide Level 16 L 20-31 mmol/L Anion Gap 21 H 5-15 Blood Urea Nitrogen 33 H 9-23 mg/dL Creatinine 1.86 H 0.550-1.02 mg/dL Glomerular Filtration Rate Calc 27 >90 mL/min BUN/Creatinine Ratio 17.7 10.0-20.0 Serum Glucose 600 *H 74-106 mg/dL Lactic Acid Level 5.6 *H 0.4-2.0 mmol/L Calcium Level 10.2 8.7-10.4 mg/dL Phosphorus Level 5.9 H 2.4-5.1 mg/dL Magnesium Level 2.3 1.6-2.6 mg/dL Beta-Hydroxybutyric Acid > 4.500 H < 0.4 mmol/L Serum Osmolality 326 H 278-298 mOsm/kg Blood Gas Specimen Type Arterial Blood Gas Sample Site Right brachial Blood Gas Patient Temperature 37.0 Arterial Blood Date Drawn [id number] Arterial Blood pH 7.331 L 7.350-7.450 Arterial Blood Partial Pressure CO2 30.9 L 32.0-45.0 mmHg Arterial Blood Partial Pressure O2 79.7 L 83.0-108.0 mmHg Arterial Blood HCO3 16.0 L 21.0-28.0 mmol/L Arterial Blood Oxygen Saturation 94.8 94.0-98.0 % Arterial Blood Base Excess -8.7 L -2.0-3.0 mmol/L Arterial Blood Oxyhemoglobin 93.5 L 94.0-98.0 % Arterial Blood Carboxyhemoglobin 0.9 0.5-1.5 % Arterial Blood Methemoglobin 0.5 0.0-1.5 % Hesham Test N/a Blood Gas Total Hemoglobin 13.70 12.0-16.0 g/dL Blood Gas Modality Room air FiO2 % 21.0 Total Bilirubin 0.7 0.2-1.0 mg/dL Aspartate Amino Transferase (AST) 12 L 13-40 U/L Alanine Aminotransferase (ALT) 13 7-40 U/L Alkaline Phosphatase 116 46-116 U/L Troponin I High Sensitivity 14 </=34 ng/L Total Protein 7.4 5.7-8.2 g/dL Albumin 4.1 3.2-4.8 g/dL Test 08/07/24 14:44 Range/Units POC Glucose 437 *H 70-106 mg/dl CHEST RADIOGRAPH FINDINGS: Lines and Tubes: None Lungs: No focal consolidation. Pleura: No effusion. No pneumothorax. Cardiomediastinal contours: Unremarkable Bones: No acute osseous abnormality. IMPRESSION: No acute cardiopulmonary disease. Assessment/Plan Assessment/Plan Assessment: DKA (diabetic ketoacidosis), Hyperkalemia, Diabetes, Hypertension, Hypothyroidism, Hyperlipidemia, Chronic kidney disease, Dementia, CHF, Plan: Admit to ICU, IV insulin, IV hydration, BMP Q 6 hours, Manage/Monitor electrolytes closely, A1c, TSH, Repeat ABG, NPO, Home medications reconciled, Plan discussed with: Patient, Son My Orders Orders - MACKENZIE BALBUENA DIGITAL IMAGING TECHNICIAN Procedure Category Date Status Time Abg W/ Co-Ox RT 08/07/24 Logged 19:12 Sodium Chloride 0.9% PHA 08/07/24 In Process 23:15 Sodium Chloride 0.9% PHA 08/08/24 In Process 01:15 Insulin Drip 100 PHA 08/07/24 In Process Unit/100ml (Myxredlin 19:15 Dextrose 50% Syringe PHA 08/07/24 In Process 19:15 Glucose Blood PHA 08/07/24 In Process (Accu-Chek Comfort 19:30 Phosphorus LAB 08/07/24 Logged 19:13 Magnesium LAB 08/07/24 Logged 19:13 Osmolality, Serum LAB 08/07/24 Logged 19:13 Basic Metabolic Panel LAB 08/07/24 Logged 22:00 Basic Metabolic Panel LAB 08/08/24 Verified 04:00 Basic Metabolic Panel LAB 08/08/24 Verified 10:00 Basic Metabolic Panel LAB 08/08/24 Verified 16:00 Acetone LAB 08/07/24 Logged 19:13 Insulin Lantus PHA 08/08/24 In Process (Glargine) (Lantus) 10:00 Admit ADMIT 08/07/24 Transmitted 19:18 Code Status CODE 08/07/24 Transmitted 19:18 Sodium Chloride Lock PHA 08/07/24 In Process (Saline Lock Ns) 22:00 Hydrocodone-Acet PHA 08/07/24 In Process 5/325mg Tab ([place] 19:30 Ondansetron Hcl PHA 08/07/24 In Process (Zofran) 19:30 Fall Risk Precautions MICHELLE 08/07/[address] 19:18 Npo (Nothing By DIET 08/08/24 Transmitted Mouth) Diet Breakfast Condition: Critical MICHELLE 08/07/24 In Process 19:18 Acetaminophen Tablet PHA 08/07/24 In Process (Tylenol Tablet) 19:30 Nitroglycerin PHA 08/07/24 In Process Sublingual (Ntrostat 19:30 Morphine Sulfate PHA 08/07/24 In Process Injection 19:30 Stat Ekg For Chest MICHELLE 08/07/24 In Process Pain 19:18 Notify Of Changes MICHELLE 08/07/24 In Process From Base 19:18 Filemaker Developer For BANNER 08/07/24 In Process 24 Hours 19:18 Emergency Dysrhythmia [facility]NER 08/07/24 In Process Protocol 19:18 Rhythm Strips Once [facility]ANNER 08/07/24 In Process Every Shift 19:18 Oxygen By Nasal RT 08/07/24 Transmitted Cannula 19:18 Beta-Hydroxybutyrate LAB 08/08/24 Verified 04:00 Losartan Tablet PHA 08/08/24 Verified (Cozaar Tablet) 10:00 (Nf) Amlodipine PHA 08/08/24 Verified Besylate 10:00 (Nf) Atorvastatin PHA 08/08/24 Verified Calcium 10:00 (Nf) Divalproex PHA 08/07/24 Verified Sodium (Divalproex 22:00 (Nf) Levothyroxine PHA 08/08/24 Verified Sodium 10:00 Date of Service: Aug 07, 2024 Billing Provider: MACKENZIE BALBUENA Common Visit Codes: [id number] INP/OBS CARE (HIGH) MACKENZIE BALBUENA Aug 07, 2024 19:41
[2024-08-07 19:44] LABS: Base Excess -16.7 mmol/L (-2.0-3.0)
[2024-08-07 20:00] VITALS: PULSE 97; RESP 20; O2SAT 100
[2024-08-07] MEDS: ONDANSETRON HCL 4 MG/2 ML VIAL IV PRN (20:07)
[2024-08-07] MEDS: SODIUM BICARB 8.4% 50Meq/50ml SYR Vial IV ONE (20:40)
[2024-08-07] MEDS ORDERED: SODIUM CHLORIDE 0.9% 1,000 ML IV SCH ×2 (20:45→22:45)
[2024-08-07] MEDS: SODIUM CHLOR 0.9% PF (SALINE LOCK) 10ML VIAL/SYR IV SCH (21:32)
[2024-08-07] MEDS: DIVALPROEX SODIUM 125 MG PO SCH (21:33)
[2024-08-07 22:40] LABS: Chloride 105 mmol/L (98-107); Potassium 4.1 mmol/L (3.5-5.1); Sodium 139 mmol/L (136-145)
[2024-08-07 22:41] LABS: Anion Gap 12 (5-15); Carbon Dioxide 22 mmol/L (20-31)
[2024-08-07 22:42] LABS: Calcium 9.2 mg/dL (8.7-10.4)
[2024-08-07 22:47] LABS: BUN/Creatinine Ratio 17.2 (10.0-20.0); Blood Urea Nitrogen 30 mg/dL (9-23); Glucose 290 mg/dL (74-106); Magnesium 2.1 mg/dL (1.6-2.6)
[2024-08-07 22:49] LABS: Phosphorus 3.5 mg/dL (2.4-5.1)
[2024-08-08] MEDS ORDERED: guaiFENesin-DM 100/10mg/5ml SYR PO PRN
[2024-08-08] MEDS: guaiFENesin-DM 100/10mg/5ml SYR PO ONE (00:06)
[2024-08-08] MEDS ORDERED: DEXTROSE (50%) 50ML SYRG IV PRN (00:30)
[2024-08-08] MEDS ORDERED: SODIUM CHLORIDE 0.9% 1,000 ML IV SCH (01:15)
[2024-08-08 01:21] LABS: Lactic Acid w/Reflex 2.8 mmol/L (0.4-2.0)
[2024-08-08 03:13] LABS: Urine Bacteria FEW /hpf (None Seen); Urine Blood Negative /uL (Negative); Urine Budding Yeast OCCASIONAL /hpf (None Seen); Urine Clarity Turbid (Clear); Urine Color Light-Yellow (Yellow); Urine Hyaline Cast MOD /lpf (0 - 2); Urine Mucus FEW (None Seen); Urine Protein, UAD TRACE (Negative); Urine Urobilinogen Normal (Negative); Urine WBC 69 /hpf (0 - 5)
[2024-08-08 03:18] LABS: Chloride 108 mmol/L (98-107); Potassium 4.4 mmol/L (3.5-5.1); Sodium 141 mmol/L (136-145)
[2024-08-08 03:19] LABS: Anion Gap 10 (5-15); Carbon Dioxide 23 mmol/L (20-31)
[2024-08-08 03:23] LABS: Amphetamine Screen, Urine Neg (NEGATIVE); Barbiturate Scree,Urine Neg (NEGATIVE); Benzodiazephine Screen, Urine Neg (NEGATIVE); Cannabinoid Screen, Urine Neg (NEGATIVE); Cocaine Screen, Urine Neg (NEGATIVE); Opiate Scree,Urine Neg (NEGATIVE); Phencyclidine Screen, Urine Neg (NEGATIVE)
[2024-08-08 03:24] LABS: BUN/Creatinine Ratio 20.1 (10.0-20.0); Blood Urea Nitrogen 32 mg/dL (9-23); Glucose 119 mg/dL (74-106)
[2024-08-08] MEDS: ACCU-CHEK COMFORT CURVE STRIP VI SCH ×2 (04:08→11:45)
[2024-08-08] MEDS: InsuLIN REG 1unit/0.01ml Soln (100units/ml) SC SCH ×2 (04:10→11:45)
[2024-08-08 09:30] LABS: Chloride 103 mmol/L (98-107); Potassium 4.1 mmol/L (3.5-5.1); Sodium 137 mmol/L (136-145)
[2024-08-08 09:31] LABS: Anion Gap 13 (5-15); Carbon Dioxide 21 mmol/L (20-31)
[2024-08-08 09:32] LABS: Calcium 9.2 mg/dL (8.7-10.4)
[2024-08-08 09:36] LABS: Glucose 247 mg/dL (74-106)
[2024-08-08 09:37] LABS: BUN/Creatinine Ratio 19.9 (10.0-20.0); Blood Urea Nitrogen 30 mg/dL (9-23)
[2024-08-08] MEDS: amLODIPine BESYLATE 5 MG TAB PO SCH (10:00)
[2024-08-08] MEDS ORDERED: INSULIN LANTUS (GLARGINE) 1 /0.01ml (100units/ml) SC SCH (10:00)
[2024-08-08] MEDS: ATORVASTATIN 20 MG TAB PO SCH (10:27)
[2024-08-08] MEDS: LOSARTAN POTASSIUM 50 MG TAB PO SCH (10:27)
[2024-08-08] MEDS: LEVOTHYROXINE SODIUM 50 MCG TAB PO SCH (10:36)
[2024-08-08 13:00] VITALS: BP 142/80; PULSE 77; RESP 20; TEMP 98.2; O2SAT 96
[2024-08-08 14:00] VITALS: BP 143/60; PULSE 89; RESP 16; TEMP 97.9; O2SAT 94
[2024-08-08 14:25] VITALS: PULSE 90; RESP 16; O2SAT 94
--- NOTE | 2024-08-08 15:45 | DVHPN2 ---
Subjective 78-year-old female who was admitted for altered level of consciousness and was found to have a DKA Changes from previous H/P or p: Changes Eyes: No Pain, No Vision change, No Conjunctivae inflammation, No Eyelid inflammation, No Other, No Redness ENT: No Ear pain, No Ear discharge, No Nose pain, No Nose discharge, No Nose congestion, No Mouth pain, No Mouth swelling, No Throat pain, No Throat swelling, No Other Cardiovascular: No Chest Pain, No Palpitations, No Orthopnea, No Paroxysmal Noc. Dyspnea, No Edema, No Lt Headedness, No Other Respiratory: No Cough, No Dry, No Shortness of breath, No SOB with excertion, No Wheezing, No Hemoptysis, No Pleuritic Pain, No Sputum, No Other Gastrointestinal: No Nausea, No Vomiting, No Abdominal Pain, No Diarrhea, No Constipation, No Melena, No Hematochezia, No Other Genitourinary: No Dysuria, No Frequency, No Incontinence, No Hematuria, No Retention, No Other Musculoskeletal: No other, No neck pain, No shoulder pain, No arm pain, No back pain, No hand pain, No leg pain, No foot pain Skin: No Rash, No Lesions, No Jaundice, No Bruising, No Other Objective Vitals Vital Signs Date Time Temp Pulse Resp B/P (MAP) Pulse Ox O2 Delivery O2 Flow Rate FiO2 08/08/24 14:25 90 16 94 Room Air* 0 21 08/08/24 13:00 98.2 142/80 (100) 98.2 Intake/Output Intake and Output 08/08/24 07:00 Intake Total 272.5 ml Balance 272.5 ml Intake IV Total 272.5 ml General Appearance: Alert, Oriented X3 Lungs: Clear to auscultation, Normal air movement Cardiovascular: Regular rate, Normal S1, Normal S2 Abdomen: Normal bowel sounds, Soft, No tenderness Extremities: No edema Medications Current Medications Medications Dose Ordered Sig/Reza Route Start Time Stop Time Status Last Admin Dose Admin Sodium Chloride 10 ml Q8HR IV 08/07/24 22:00 08/08/24 14:26 10 ML Acetaminophen/ Hydrocodone Bitart 1 tab Q4HP PRN PO 08/07/24 19:30 Ondansetron HCl 4 mg Q4HP PRN IV 08/07/24 19:30 08/07/24 20:07 4 MG Acetaminophen 650 mg Q6HP PRN PO 08/07/24 19:30 Nitroglycerin 0.4 mg Q5MINP PRN SL 08/07/24 19:30 Morphine Sulfate 2 mg Q30M PRN IV 08/07/24 19:30 Losartan Potassium 50 mg DAILY PO 08/08/24 10:00 08/08/24 10:27 50 MG Amlodipine Besylate 10 mg DAILY PO 08/08/24 10:00 Atorvastatin Calcium 40 mg DAILY PO 08/08/24 10:00 08/08/24 10:27 40 MG Patient Own Medication 125 mg BID PO 08/07/24 22:00 Levothyroxine Sodium 150 mcg DAILY PO 08/08/24 10:00 08/08/24 10:36 150 MCG Guaifenesin/ Dextromethorphan 10 ml Q4HP PRN PO 08/08/24 00:00 Dextrose 50 ml UD PRN IV 08/08/24 00:30 Diagnostic Test (Pha) 1 strip ACHS 08/08/24 11:45 08/08/24 11:45 1 STRIP Insulin Human Regular ACHS SC 08/08/24 11:45 08/08/24 11:45 15 UNITS Laboratory Results Laboratory Tests 08/07/24 17:12 08/08/24 09:09 Chemistry Test 08/07/24 17:12 08/07/24 22:00 08/08/24 02:50 08/08/24 09:09 Calcium Level 10.2 mg/dL (8.7-10.4) 9.2 mg/dL (8.7-10.4) 9.0 mg/dL (8.7-10.4) 9.2 mg/dL (8.7-10.4) Magnesium Level 2.3 mg/dL (1.6-2.6) 2.1 mg/dL (1.6-2.6) Phosphorus Level 5.9 mg/dL (2.4-5.1) H 3.5 mg/dL (2.4-5.1) HgA1c, TSH Test 08/08/24 02:50 Hemoglobin A1c 10.4 % A1C (<5.7) H Thyroid Stimulating Hormone (TSH) 0.03 uIU/mL (0.55-4.78) L Urinalysis Test 11/23/24 02:56 Urine Color Light-yellow (Yellow) Urine Clarity Turbid (Clear) H Urine pH 5.0 (5.0-9.0) Urine Specific [place] 1.010 (1.001-1.035) Urine Protein Trace (Negative) H Urine Ketones 1+ (Negative) H Urine Blood Negative /uL (Negative) Urine Nitrite 1+ (Negative) H Urine Bilirubin Negative (Negative) Urine Urobilinogen Normal mg/dL (Negative) Urine Leukocyte Esterase 3+ /uL (Negative) Urine RBC 1 /hpf (0 - 4) Urine WBC 69 /hpf (0 - 5) Urine Squamous Epithelial Cells Few /hpf (<5) Urine Bacteria Few /hpf (None Seen) H Urine Hyaline Casts Mod /lpf (0 - 2) Urine Mucus Few (None Seen) Urine Yeast (Budding) Occasional /hpf (None Urine Glucose 3+ mg/dL (Normal) H Blood Gas Results Test 08/07/24 19:39 Arterial Blood pH 7.196 (7.350-7.450) FiO2 % 28.0 Assessment/Plan Assessment/Plan DKA resolved UTI Acute on chronic kidney disease Chronic kidney disease History of CHF Hypertension Type 2 diabetes Dyslipidemia Dementia Hypothyroidism Plan Downgrade to telemetry Start Lantus 20 units daily at bedtime Resume the home medications Physical therapy Start IV Levaquin for the UTI Full code Advance directives discussed for 20 minutes Not stable for transfer Plan discussed with: Patient My Orders Orders - PATRIA QUIROZ MD Procedure Category Date Status Time Transfer Orders XFER 08/08/24 Transmitted 11:34 Glucose Blood PHA 08/08/24 In Process (Accu-Chek Comfort 11:45 Insulin R (Human) PHA 08/08/24 In Process (Insulin R) 11:45 Date of Service: Aug 08, 2024 Billing Provider: PATRIA QUIROZ MD Common Visit Codes: [id number] INP/OBS CARE(HIGH) Secondary Visit Codes: [id number] CARE PLAN 30 MINUTES PATRIA QUIROZ MD Aug 08, 2024 15:44
[2024-08-08 16:02] LABS: Chloride 103 mmol/L (98-107); Sodium 134 mmol/L (136-145)
[2024-08-08 16:03] LABS: Anion Gap 9 (5-15); Carbon Dioxide 22 mmol/L (20-31)
[2024-08-08 16:04] LABS: Calcium 9.3 mg/dL (8.7-10.4)
[2024-08-08 16:08] LABS: BUN/Creatinine Ratio 19.9 (10.0-20.0); Blood Urea Nitrogen 29 mg/dL (9-23); Glucose 322 mg/dL (74-106)
[2024-08-08] MEDS: levoFLOXacin 250MG 50 ML IV ONE (16:13)
[2024-08-08 17:00] VITALS: BP 124/39; PULSE 85; RESP 18; TEMP 98.5; O2SAT 93
[2024-08-08 20:00] VITALS: PULSE 78
[2024-08-08 21:00] VITALS: BP 110/43; PULSE 77; RESP 16; TEMP 95.4; O2SAT 95
[2024-08-08] MEDS: INSULIN LANTUS (GLARGINE) 1 /0.01ml (100units/ml) SC SCH (21:27)
[2024-08-09] VITALS (8 sets, daily range): BP systolic 111–161; BP diastolic 52–85; PULSE 62–101; RESP 16–20; TEMP 97.2–98.4; O2SAT 92–97
--- NOTE | 2024-08-09 03:48 | ECG ---
[facility] Test Date: 2024-08-07 Test Time: 14:47:36 Pat Name: ALLAN SWANSON Department: ER Room: 0220T A Gender: F Veneer Sander: MARIBETH : 1945 Requested By: YAEL AG Order Number: [id number] Reading MD: Kevin Anglin Measurements Intervals [place] Rate: 87 P: 86 [place]: 188 QRS: -51 QRSD: 149 T: 92 QT: 453 QTc: 545 Interpretive Statements Sinus tachycardia Ventricular premature complex Left bundle branch block Baseline wander in lead(s) I,II,III,aVL,aVF,V3,V4 Electronically Signed On 08-11-2024 8:17:59 PST by Kevin Anglin Please click the below link to view image of tracing.
[2024-08-09] MEDS: HYDROcodone-ACET 5/325MG TAB PO PRN (03:55)
[2024-08-09 07:17] LABS: Anion Gap 9 (5-15); Carbon Dioxide 25 mmol/L (20-31); Chloride 107 mmol/L (98-107); Potassium 3.9 mmol/L (3.5-5.1); Sodium 141 mmol/L (136-145)
[2024-08-09 07:18] LABS: Calcium 9.5 mg/dL (8.7-10.4)
[2024-08-09 07:23] LABS: BUN/Creatinine Ratio 21.8 (10.0-20.0); Blood Urea Nitrogen 24 mg/dL (9-23); Glucose 92 mg/dL (74-106)
[2024-08-09 07:24] LABS: Magnesium 2.4 mg/dL (1.6-2.6)
--- NOTE | 2024-08-09 15:20 | DVHPN2 ---
Subjective Anxiety Blood sugar still high in the 400 Changes from previous H/P or p: Changes Eyes: No Pain, No Vision change, No Conjunctivae inflammation, No Eyelid inflammation, No Other, No Redness ENT: No Ear pain, No Ear discharge, No Nose pain, No Nose discharge, No Nose congestion, No Mouth pain, No Mouth swelling, No Throat pain, No Throat swelling, No Other Cardiovascular: No Chest Pain, No Palpitations, No Orthopnea, No Paroxysmal Noc. Dyspnea, No Edema, No Lt Headedness, No Other Respiratory: No Cough, No Dry, No Shortness of breath, No SOB with excertion, No Wheezing, No Hemoptysis, No Pleuritic Pain, No Sputum, No Other Gastrointestinal: No Nausea, No Vomiting, No Abdominal Pain, No Diarrhea, No Constipation, No Melena, No Hematochezia, No Other Genitourinary: No Dysuria, No Frequency, No Incontinence, No Hematuria, No Retention, No Other Musculoskeletal: No other, No neck pain, No shoulder pain, No arm pain, No back pain, No hand pain, No leg pain, No foot pain Skin: No Rash, No Lesions, No Jaundice, No Bruising, No Other Objective Vitals Vital Signs Date Time Temp Pulse Resp B/P (MAP) Pulse Ox O2 Delivery O2 Flow Rate FiO2 08/09/24 11:01 161/85 08/09/24 09:00 98.0 85 18 97 98.0 08/09/24 08:00 Room Air* 0 21 Intake/Output Intake and Output 08/09/24 07:00 Intake Total 320 ml Output Total 200 ml Balance 120 ml Intake Oral 320 ml Output Urine Total 200 ml # Voids 2 General Appearance: Alert, Oriented X3 Lungs: Clear to auscultation, Normal air movement Cardiovascular: Regular rate, Normal S1, Normal S2 Abdomen: Normal bowel sounds, Soft, No tenderness Extremities: No edema Medications Current Medications Medications Dose Ordered Sig/Reza Route Start Time Stop Time Status Last Admin Dose Admin Sodium Chloride 10 ml Q8HR IV 08/07/24 22:00 08/09/24 05:09 10 ML Acetaminophen/ Hydrocodone Bitart 1 tab Q4HP PRN PO 08/07/24 19:30 08/09/24 03:55 1 TAB Ondansetron HCl 4 mg Q4HP PRN IV 08/07/24 19:30 08/07/24 20:07 4 MG Acetaminophen 650 mg Q6HP PRN PO 08/07/24 19:30 Nitroglycerin 0.4 mg Q5MINP PRN SL 08/07/24 19:30 Morphine Sulfate 2 mg Q30M PRN IV 08/07/24 19:30 Losartan Potassium 50 mg DAILY PO 08/08/24 10:00 08/09/24 11:00 50 MG Amlodipine Besylate 10 mg DAILY PO 08/08/24 10:00 08/09/24 11:01 10 MG Atorvastatin Calcium 40 mg DAILY PO 08/08/24 10:00 08/09/24 11:00 40 MG Patient Own Medication 125 mg BID PO 08/07/24 22:00 Levothyroxine Sodium 150 mcg DAILY PO 08/08/24 10:00 08/09/24 11:00 150 MCG Guaifenesin/ Dextromethorphan 10 ml Q4HP PRN PO 08/08/24 00:00 Dextrose 50 ml UD PRN IV 08/08/24 00:30 Diagnostic Test (Pha) 1 strip ACHS 08/08/24 11:45 08/09/24 11:17 1 STRIP Insulin Human Regular ACHS SC 08/08/24 11:45 08/09/24 11:20 15 UNITS Levofloxacin 50 ml @ 50 mls/hr DAILY IV 08/09/24 10:00 Insulin Glargine 20 units HS SC 08/08/24 22:00 08/08/24 21:27 20 UNITS Laboratory Results Laboratory Tests 08/07/24 17:12 08/09/24 06:03 Chemistry Test 08/08/24 15:43 08/09/24 06:03 Calcium Level 9.3 mg/dL (8.7-10.4) 9.5 mg/dL (8.7-10.4) Magnesium Level 2.4 mg/dL (1.6-2.6) Urinalysis Test 08/08/24 02:56 Urine Color Light-yellow (Yellow) Urine Clarity Turbid (Clear) H Urine pH 5.0 (5.0-9.0) Urine Specific [place] 1.010 (1.001-1.035) Urine Protein Trace (Negative) H Urine Ketones 1+ (Negative) H Urine Blood Negative /uL (Negative) Urine Nitrite 1+ (Negative) H Urine Bilirubin Negative (Negative) Urine Urobilinogen Normal mg/dL (Negative) Urine Leukocyte Esterase 3+ /uL (Negative) Urine RBC 1 /hpf (0 - 4) Urine WBC 69 /hpf (0 - 5) Urine Squamous Epithelial Cells Few /hpf (<5) Urine Bacteria Few /hpf (None Seen) H Urine Hyaline Casts Mod /lpf (0 - 2) Urine Mucus Few (None Seen) Urine Yeast (Budding) Occasional /hpf (None Urine Glucose 3+ mg/dL (Normal) H Assessment/Plan Assessment/Plan DKA resolved UTI Acute on chronic kidney disease Chronic kidney disease History of CHF Hypertension Type 2 diabetes Dyslipidemia Dementia Hypothyroidism Plan 08/08/2024: Downgrade to telemetry Start Lantus 20 units daily at bedtime Resume the home medications Physical therapy Start IV Levaquin for the UTI Full code Advance directives discussed for 20 minutes Not stable for transfer 08/09/2024: Increase Lantus to 20 units twice a day Resume BuSpar home medication Continuity other treatments Physical therapy Continue Levaquin Full code Not stable for transfer yet Plan discussed with: Patient My Orders Orders - PATRIA QUIROZ MD Procedure Category Date Status Time Levofloxacin 250mg PHA 08/09/24 In Process (Levaquin 250mg) 10:00 Pt Request For Service PT 08/08/24 Logged 15:41 Insulin Lantus PHA 08/08/24 In Process (Glargine) (Lantus) 22:00 Date of Service: Aug 09, 2024 Billing Provider: PATRIA QUIROZ MD Common Visit Codes: [id number] INP/OBS CARE(HIGH) PATRIA QUIROZ MD Aug 09, 2024 15:20
[2024-08-09] MEDS: busPIRone HCL 10 MG TAB PO ONE (17:46)
[2024-08-09] MEDS: INSULIN LANTUS (GLARGINE) 1 /0.01ml (100units/ml) SC ONE (17:47)
[2024-08-09] MEDS: levoFLOXacin 250MG 50 ML IV SCH (17:48)
[2024-08-09] MEDS: ACETAMINOPHEN 325 MG TAB PO PRN (21:01)
[2024-08-09] MEDS: busPIRone HCL 10 MG TAB PO SCH (21:04)
[2024-08-09] MEDS: INSULIN LANTUS (GLARGINE) 1 /0.01ml (100units/ml) SC SCH (21:13)
[2024-08-10 01:00] VITALS: BP 113/50; PULSE 77; RESP 18; TEMP 97.6; O2SAT 92
[2024-08-10 05:00] VITALS: BP 152/62; PULSE 65; RESP 18; TEMP 97.7; O2SAT 95
[2024-08-10 07:03] LABS: Chloride 105 mmol/L (98-107); Potassium 4.3 mmol/L (3.5-5.1); Sodium 139 mmol/L (136-145)
[2024-08-10 07:04] LABS: Anion Gap 8 (5-15); Carbon Dioxide 26 mmol/L (20-31)
[2024-08-10 07:05] LABS: Calcium 9.7 mg/dL (8.7-10.4)
[2024-08-10 07:09] LABS: Glucose 189 mg/dL (74-106)
[2024-08-10 07:10] LABS: Blood Urea Nitrogen 14 mg/dL (9-23); Magnesium 2.2 mg/dL (1.6-2.6)
[2024-08-10 08:00] VITALS: PULSE 65
[2024-08-10 09:00] VITALS: BP 158/64; PULSE 66; RESP 18; TEMP 98.1; O2SAT 96
[2024-08-10] MEDS ORDERED: LEVO250T58 PO (10:31)
--- NOTE | 2024-08-10 10:33 | DVHDS2 ---
Discharge Summary Date of Admission Aug 07, 2024 at 19:51 Date of Discharge: Aug 10, 2024 Labs/Diagnostic Data: Laboratory Results Test 08/10/24 05:43 08/10/24 05:21 08/08/24 09:09 08/08/24 02:56 Sodium Level 139 mmol/L (136-145) Potassium Level 4.3 mmol/L (3.5-5.1) Chloride Level 105 mmol/L (98-107) Carbon Dioxide Level 26 mmol/L (20-31) Anion Gap 8 (5-15) Blood Urea Nitrogen 14 mg/dL (9-23) Creatinine 1.08 mg/dL (0.550-1.02) Glomerular Filtration Rate Calc 52 mL/min (>90) BUN/Creatinine Ratio 13.0 (10.0-20.0) Serum Glucose 189 mg/dL (74-106) Calcium Level 9.7 mg/dL (8.7-10.4) Magnesium Level 2.2 mg/dL (1.6-2.6) POC Glucose 165 mg/dl (70-106) Lactic Acid Level 1.1 mmol/L (0.4-2.0) Urine Color Light-yellow (Yellow) Urine Clarity Turbid (Clear) Urine pH 5.0 (5.0-9.0) Urine Specific [place] 1.010 (1.001-1.035) Urine Protein Trace (Negative) Urine Ketones 1+ (Negative) Urine Blood Negative /uL (Negative) Urine Nitrite 1+ (Negative) Urine Bilirubin Negative (Negative) Urine Urobilinogen Normal mg/dL (Negative) Urine Leukocyte Esterase 3+ /uL (Negative) Urine RBC 1 /hpf (0 - 4) Urine WBC 69 /hpf (0 - 5) Urine Squamous Epithelial Cells Few /hpf (<5) Urine Bacteria Few /hpf (None Seen) Urine Hyaline Casts Mod /lpf (0 - 2) Urine Mucus Few (None Seen) Urine Yeast (Budding) Occasional /hpf (None Urine Glucose 3+ mg/dL (Normal) Urine Opiates Screen Neg (NEGATIVE) Urine Fentanyl Screen Neg (NEGATIVE) Urine Barbiturates Screen Neg (NEGATIVE) Urine Phencyclidine Screen Neg (NEGATIVE) Urine Amphetamines Screen Neg (NEGATIVE) Urine Benzodiazepines Screen Neg (NEGATIVE) Urine Cocaine Screen Neg (NEGATIVE) Urine Cannabinoids Screen Neg (NEGATIVE) Test 08/08/24 02:50 08/07/24 22:00 08/07/24 19:39 08/07/24 17:12 Hemoglobin A1c 10.4 % A1C (<5.7) Beta-Hydroxybutyric Acid 2.723 mmol/L (< 0.4) Thyroid Stimulating Hormone (TSH) 0.03 uIU/mL (0.55-4.78) Serum Osmolality 310 mOsm/kg (278-298) Phosphorus Level 3.5 mg/dL (2.4-5.1) Blood Gas Specimen Type Arterial Blood Gas Sample Site Right radial Blood Gas Patient Temperature 37.0 Arterial Blood Date Drawn [id number] Arterial Blood pH 7.196 (7.350-7.450) Arterial Blood Partial Pressure CO2 25.7 mmHg (32.0-45.0) Arterial Blood Partial Pressure O2 102.0 mmHg (83.0-108.0) Arterial Blood HCO3 9.7 mmol/L (21.0-28.0) Arterial Blood Oxygen Saturation 96.7 % (94.0-98.0) Arterial Blood Base Excess -16.7 mmol/L (-2.0-3.0) Arterial Blood Oxyhemoglobin 95.5 % (94.0-98.0) Arterial Blood Carboxyhemoglobin 0.5 % (0.5-1.5) Arterial Blood Methemoglobin 0.7 % (0.0-1.5) [place] Test Yes Blood Gas Total Hemoglobin 13.40 g/dL (12.0-16.0) Blood Gas Liter Flow 2.00 Blood Gas Modality Nasal cannula FiO2 % 28.0 Blood Gas Critical Value Read Back Yes Blood Gas Notified Whom apoorva Griffith Blood Gas Notified Time [id number] Blood Gas Notified By Dhruv ridley White Blood Count 11.3 10^3/uL (4.4-10.8) Red Blood Count 4.98 10^6/uL (4.0-5.20) Hemoglobin 13.5 g/dL (12.2-16.2) Hematocrit 42.0 % (36.0-46.0) Mean Corpuscular Volume 84.4 fL (80.0-100.0) Mean Corpuscular Hemoglobin 27.0 pg (28.0-32.0) Mean Corpuscular Hemoglobin Concent 32.0 g/dL (32.0-36.0) Red Cell Distribution Width 13.4 % (11.8-14.3) Platelet Count 216 10^3/uL (140-450) Mean Platelet Volume 9.1 fL (6.9-10.8) Neutrophils (%) (Auto) 82.3 % (37.0-80.0) Lymphocytes (%) (Auto) 11.5 % (10.0-50.0) Monocytes (%) (Auto) 5.9 % (0.0-12.0) Eosinophils (%) (Auto) 0.1 % (0.0-7.0) Basophils (%) (Auto) 0.2 % (0.0-2.0) Neutrophils # (Auto) 9.3 10 ^3/uL (1.6-8.6) Lymphocytes # (Auto) 1.3 10 ^3/uL (0.4-5.4) Monocytes # (Auto) 0.7 10 ^3/uL (0-1.3) Eosinophils # (Auto) 0 10 ^3/uL (0-0.8) Basophils # (Auto) 0 10 ^3/uL (0-0.2) Nucleated Red Blood Cells 0.0 % Test 08/07/24 15:05 Total Bilirubin 0.7 mg/dL (0.2-1.0) Aspartate Amino Transferase (AST) 12 U/L (13-40) Alanine Aminotransferase (ALT) 13 U/L (7-40) Alkaline Phosphatase 116 U/L (46-116) Troponin I High Sensitivity 14 ng/L (</=34) Total Protein 7.4 g/dL (5.7-8.2) Albumin 4.1 g/dL (3.2-4.8) Other Laboratory Tests 08/10/24 05:43 08/07/24 17:12 Brief Hx & Hospital Course: Final diagnoses: DKA resolved UTI Acute kidney injury due to vasomotor nephropathy due to dehydration Dehydration Chronic kidney disease History of CHF Hypertension Type 2 diabetes Dyslipidemia Dementia Hypothyroidism She was admitted here and was given IV fluids and insulin which resolved her acute kidney injury Her blood sugar stabilized She was given Lantus 40 units twice a day She is asymptomatic now She will be discharged home on Levaquin 250 mg daily for 5 days for the UTI I discussed her care with her son Jaya over the phone who said he was given her Lantus 30 units at home Increase the Lantus dose to 35 units daily at home Resume other home medications Follow up with the primary care physician 1-2 weeks Condition at Discharge: Stable Final Diagnosis/Problems List DKA Uncontrolled diabetes UTI Discharge Disposition: Home SNF Discharge Will this Physician continue t: No Discharge Instruct/Medications Diet: Consistent carbohydrate, Cardiac 2g Na,low cholest Activity: No Restrictions, As Tolerated Follow Up/Referral: PCP as soon as possible Medications: Increase Lantus to 35 units daily at home Levaquin 250 mg daily for 5 days for the UTI Resume other medication Discharge Statement: "Patient was advised to return to the ER or call 911 if any headaches, dizziness, shortness of breath, chest pain, abdominal pain, bleeding, fevers, or worsening of medical condition. Patient was counseled about treatment plan, medications, possible side effects, patientverbalized understanding. All questions were answered to the best of my ability. This discharge took greater then 30 minutes in planning, reviewing documentation, counseling the patient, and discussing with other team members." ASSESSMENT ASSESSMENT Assessment DKA Uncontrolled diabetes UTI Date of Service: Aug 10, 2024 Billing Provider: PATRIA QUIROZ MD Common Visit Codes: [id number] DISCH DAY >30min PATRIA QUIROZ MD Aug 10, 2024 10:33
[2024-08-10 12:13] VITALS: BP 147/59; PULSE 80; RESP 20; TEMP 98.3; O2SAT 97
== END 2024-08-10 14:21 | disposition home or self-care (01) | DRG 637 ==
LOC: ER 14:34 → TELE 19:51 → TELE-CENTR 08-08 14:28
PROVIDERS: ADMIT Nurse Practitioner Family; ATTEND Internal Medicine Geriatric Medicine
DX: E11.10 Type 2 diabetes mellitus with ketoacidosis without coma (principal); N17.0 Acute kidney failure with tubular necrosis; F03.94 Unspecified dementia, unspecified severity, with anxiety; I13.0 Hypertensive heart and chronic kidney disease with heart failure and stage 1 through stage 4 chronic kidney disease, or unspecified chronic kidney disease; N39.0 Urinary tract infection, site not specified; E87.5 Hyperkalemia; I50.9 Heart failure, unspecified; N18.9 Chronic kidney disease, unspecified; E03.9 Hypothyroidism, unspecified; E78.5 Hyperlipidemia, unspecified; E11.22 Type 2 diabetes mellitus with diabetic chronic kidney disease; E86.0 Dehydration; Z79.4 Long term (current) use of insulin; Z86.73 Personal history of transient ischemic attack (TIA), and cerebral infarction without residual deficits; Z90.710 Acquired absence of both cervix and uterus; Z88.6 Allergy status to analgesic agent; Z88.5 Allergy status to narcotic agent; Z88.2 Allergy status to sulfonamides; Z88.0 Allergy status to penicillin; Z79.899 Other long term (current) drug therapy
CPT/HCPCS: 36415; 36600; 71045; 80048; 80053; 80307; 81001; 82010; 82805; 82962; 83036; 83605; 83735; 83930; 84100; 84443; 84484; 85025; 93005; 97163; 99291; G0378; J1815; J2405

== ENCOUNTER 2024-08-19 14:53 | Emergency (ER) | payer OTHER, MEDICARE ==
[~2024-08-19] VITALS: Ht 157.5 cm; Wt 45.0 kg
[~2024-08-19 14:53] MED LIST changes: +LEVO250T58 PO
--- NOTE | 2024-08-19 15:42 | ED.PDOC ---
HPI Comments while at her doctor's office, pt developed right sided chest pain Chief Complaint: Chest Pain Comments pain worsens by palpation. no other symptoms Time Seen by MD: 15:31 Primary Care Provider: MUKUND Allergies: Coded Allergies: Acetaminophen (Verified Allergy, Unknown, 05/08/23) Codeine (Verified Allergy, Unknown, 08/19/24) Hydrocodone (Verified Allergy, Unknown, 05/08/23) Penicillins (Unverified Allergy, Unknown, 04/24/15) Uncoded Allergies: ADHESIVE TAPES (Allergy, Unknown, 05/08/23) SULFA (Allergy, Unknown, 05/08/23) Home Meds Active Scripts Levofloxacin Hemihydrate (LEVOFLOXACIN) 250 Mg Tab, 250 MG PO DAILY for 5 Days, #5 TAB Prov:PATRIA QUIROZ MD 08/10/24 Losartan Potassium (Losartan Potassium) 50 Mg Tab, 50 MG PO DAILY, #30 TAB 3 Refills Prov:ROSAMARIA FLOYD 10/26/23 Insulin Glargine (Lantus) 100 Unit/Ml Inj, 25 UNITS SC QAM, #10 INJ Prov:JOSE DALEY MD 03/30/22 Reported Medications Divalproex Sodium (Divalproex Sodium Dr) 125 Mg Tab, 125 MG PO BID, TAB 04/10/24 Levothyroxine Sodium (Levothyroxine Sodium) 150 Mcg Tab, 1 TAB PO DAILY 01/07/24 Buspirone Hcl (Buspirone Hcl) 5 Mg Tab, 1 TAB PO BID 10/24/23 Insulin Lispro (Humalog Kwikpen) 100 Unit/Ml Inj, 5 UNITS SC TID BREAKFAST,LUNCH,DINNER 03/08/22 Amlodipine Besylate (Amlodipine Besylate) 10 Mg Tab, 1 TAB PO DAILY 03/08/22 Atorvastatin Calcium (ATORVASTATIN CALCIUM) 40 Mg Tab, 1 TAB PO DAILY 03/08/22 Furosemide (Furosemide) 40 Mg Tab, 1 TAB PO DAILY 03/08/22 Information Source: Patient, Relative, PMD Records (ekg shows LBBB) Mode of Arrival: EMS Severity: Mild Timing: Hours Duration: Intermittent Prehospital treatment: 12 Lead EKG Location: Chest (R) Radiation: No Radiation Quality: Sharp Onset: At Rest Cardiac Risk Factors: HTN, Diabetes, Other (dementia, ckd, chf) PE Risk Factors: None History of: None Modifying Factors: Other (palpation) Associated Signs and Symptoms: None Past Medical History PAST MEDICAL HISTORY: CHF, DM, High Lipids, HTN, Thyroid, TIA Past Medical History (Other): ckd, dementia Surgical History: Hysterectomy ACTOR UNDERSTUDY History: No Pertinent ACTOR UNDERSTUDY History Family History Family History: Reviewed,noncontributory to illness, Family hx of DM, Family hx of Cancer Social History Smoker: Non-Smoker Alcohol: Occasionally Drugs: Denies Drug Use Lives In: Home Constitutional: denies: chills, diaphoresis, fatigue, fever, malaise, sweats, weakness, others EENTM: denies: blurred vision, double vision, ear bleeding, ear discharge, ear drainage, ear pain, ear ringing, eye pain, eye redness, hearing loss, mouth pain, mouth swelling, nasal discharge, nose bleeding, nose congestion, nose pain, photophobia, tearing, throat pain, throat swelling, voice changes, others Respiratory: denies: cough, hemoptysis, orthopnea, SOB at rest, shortness of breath, SOB with excertion, stridor, wheezing, others Cardiovascular: reports: chest pain; denies: dizzy spells, diaphoresis, Dyspnea on exertion, edema, irregular heart beat, left arm pain, lightheadedness, palpitations, PND, syncope, others Gastrointestinal: denies: abdomen distended, abdominal pain, blood streaked bowels, constipated, diarrhea, dysphagia, difficulty swallowing, hematemesis, melena, nausea, poor appetite, poor fluid intake, rectal bleeding, rectal pain, vomiting, others Genitourinary: denies: abnormal vagina bleeding, burning, dyspareunia, dysuria, flank pain, frequency, hematuria, incontinence, pain, , vagina discharge, urgency, others Neurological: denies: dizziness, fainting, headache, left sided numbness, left sided weakness, numbness, paresthesia, pre-existing deficit, right sided numbn ess, right sided weakness, seizure, speech problems, tingling, tremors, weakness, others Musculoskeletal: denies: back pain, gout, joint pain, joint swelling, muscle pain, muscle stiffness, neck pain, others Allergic/Immunocompromised: denies: Difficulty Healing, Frequent Infections, Hives, Itching, others Hematologic/Lymphatic: denies: anemia, blood clots, easy bleeding, easy bruising, swollen glands, others Endocrine: denies: excessive hunger, excessive sweating, excessive thirst, excessive urination, flushing, intolerance to cold, intolerance to heat, unexplained weight gain, unexplained weight loss, others Psychiatric: denies: anxiety, bipolar disorder, depression, hopeless, panic disorder, schizophrenia, sleepless, suicidal, others Physical Exam General Appearance: No Apparent Distress, Normal HEENT: Normal ENT Inspection, Pharynx Normal, TMs Normal Neck: Full Range of Motion, Non-Tender, Normal, Normal Inspection Respiratory: Chest Non-Tender, Lungs Clear, No Accessory Muscle Use, No Respiratory Distress, Normal Breath Sounds Cardiovascular: No Edema, No JVD, No Murmur, No Gallop, Normal Peripheral Pulses, Regular Rate/Rhythm Breast Exam: Deferred Gastrointestinal: No Organomegaly, Non Tender, No Pulsatile Mass, Normal Bowel Sounds, Soft Genitalia: Deferred Pelvic: Deferred Rectal: Deferred Extremities: No calf tenderness, Normal capillary refill, Normal inspection, Normal range of motion, Non-tender, No pedal edema Musculoskeletal : Apperance: Normal Neurologic: Alert, lining stuffer II-XII nml as Tested, No Motor Deficits, Normal Affect, Normal Mood, No Sensory Deficits Cerebellar Function: Normal Reflexes: Normal Skin: Dry, Normal Color, Warm Lymphatic: No Adenopathy Was a procedure done? Was a procedure done?: No CP Differential Dx Differential Diagnosis: Other Differential Diagnosis: Other Differential Diagnosis: Angina, Aortic dissection, Chest Wall Pain, Cholelithiasis, Costochondritis, Esophageal reflux/spasm, Gastritis, Myocardial Infarction, Pericarditis, Pneumonia, Pneumothorax, Pulmonary Embolus X-Ray, Labs, Meds, VS Vital Signs Date Time Temp Pulse Resp B/P (MAP) Pulse Ox O2 Delivery O2 Flow Rate FiO2 08/19/24 15:51 75 08/19/24 15:00 72 08/19/24 14:53 98.8 70 18 164/78 (106) 96 Lab Test 08/19/24 16:24 Range/Units White Blood Count 4.3 L 4.4-10.8 10^3/uL Red Blood Count 5.19 4.0-5.20 10^6/uL Hemoglobin 14.1 12.2-16.2 g/dL Hematocrit 42.2 36.0-46.0 % Mean Corpuscular Volume 81.3 80.0-100.0 fL Mean Corpuscular Hemoglobin 27.2 L 28.0-32.0 pg Mean Corpuscular Hemoglobin Concent 33.5 32.0-36.0 g/dL Red Cell Distribution Width 13.5 11.8-14.3 % Platelet Count 242 140-450 10^3/uL Mean Platelet Volume 8.0 6.9-10.8 fL Neutrophils (%) (Auto) 55.0 37.0-80.0 % Lymphocytes (%) (Auto) 34.8 10.0-50.0 % Monocytes (%) (Auto) 8.4 0.0-12.0 % Eosinophils (%) (Auto) 1.6 0.0-7.0 % Basophils (%) (Auto) 0.2 0.0-2.0 % Neutrophils # (Auto) 2.4 1.6-8.6 10 ^3/uL Lymphocytes # (Auto) 1.5 0.4-5.4 10 ^3/uL Monocytes # (Auto) 0.4 0-1.3 10 ^3/uL Eosinophils # (Auto) 0.1 0-0.8 10 ^3/uL Basophils # (Auto) 0 0-0.2 10 ^3/uL Nucleated Red Blood Cells 0.1 % Sodium Level 137 136-145 mmol/L Potassium Level 3.3 L 3.5-5.1 mmol/L Chloride Level 100 98-107 mmol/L Carbon Dioxide Level 29 20-31 mmol/L Anion Gap 8 5-15 Blood Urea Nitrogen 25 H 9-23 mg/dL Creatinine 1.10 H 0.550-1.02 mg/dL Glomerular Filtration Rate Calc 51 >90 mL/min BUN/Creatinine Ratio 22.7 H 10.0-20.0 Serum Glucose 74 74-106 mg/dL Calcium Level 11.1 H 8.7-10.4 mg/dL Total Bilirubin Pending Direct Bilirubin Pending Aspartate Amino Transferase (AST) Pending Alanine Aminotransferase (ALT) Pending Alkaline Phosphatase Pending Troponin I High Sensitivity 10 </=34 ng/L Total Protein Pending Albumin Pending Time of 1ST Reevaluation: 18:46 Reevaluation 1ST: Improved Consultation: Other ([facility] Dr Page# [phone]) Patient Education/Counseling: Diagnosis, Treatment, Prognosis, Need For Follow Up Family Education/Counseling: No Family Present Additional Information medical record review include 4 admissions for dka in 2023, one for stroke in 2022 bcb, chemistry, trop, ekg, cxr ordered and results reviewed i communicated with medical personnel, consultant technology i reviewed the abdomen/pelvis ct report and agree with consultant technology Dr Page from [facility] will accept transfer. she would like LFTs to be added #[id number] Departure 1 Departure Time of Disposition: 18:48 Impression: Primary Impression: Unstable angina Additional Impressions: Renal insufficiency Hypokalemia Disposition: 02 SHORT TERM HOSPITAL Condition: Stable Critical Care Note Critical Care Time?: Yes (55 min-critical care time only) Critical care comment: due to concerns for deterioration of pt's condition, the care required my highest level of attention and readiness. i assessed the pt, ordered the appropriate tests and treatments, reassessed the response to treatments, communicated with medical personnel, consultants, and formulated a treatment plan Stability Stability form required: Yes Heart Score Heart Score: Heart Score Response (Comments) Value History Moderate Suspicious 1 EKG Repolarization Disturb 1 Age >65 2 Risk Factors >3 or Hx ASHD 2 Troponin Normal limit 0 Total 6 SUMMER HUDSON MD Aug 19, 2024 15:42
[2024-08-19] MEDS ORDERED: HYDROcodone-ACET 5/325MG TAB PO ONE (15:45)
--- NOTE | 2024-08-19 16:27 | DVH ---
Exam: CT CT AB PEL WO CON-NO ORAL OR IV History: pelvic pain, post scaleman procedure Comparison Study: CT CT AB PEL WO CON-NO ORAL OR IV on DOS: 04/08/24, CT ABD PELVIS WO CONTRAST on DO S: 03/27/22 Technique: Multidetector spiral CT of the abdomen and pelvis was performed from lung bases to pubic symphysis. Imaging was performed without IV contrast. Axial, coronal and sagittal multiplanar reform ats were obtained from the axial data set by the technologist. Radiation dose : Abdomen/Pelvis: CTDIvol 5 mGy, DLP 231.97 mGy*cm. Findings: Metallic artifact in the region of the IVC near its connection to the heart. Evaluation of solid organs is limited due to lack of intravenous contrast use. Lung Bases: No acute or significant lung base finding. Normal heart size. No pleural or pericardial effusion. Liver: The liver is normal in size. No focal lesions. Gallbladder and biliary Tree: Unremarkable Spleen: Unremarkable Pancreas: The pancreas is grossly normal in appearance. Adrenal Glands: Unremarkable Kidneys: Kidneys are grossly normal without calculi or hydronephrosis. Bladder: Grossly unremarkable for degree of distention. Bowel: The stomach is grossly normal in appearance. Small bowel and colon are normal in caliber and d istribution. Normal appendix is visualized in the right lower quadrant without findings of appendici tis. Ascites: Absent Lymphadenopathy: No mesenteric, retroperitoneal or periportal lymphadenopathy. Abdominal wall and Mesentery: Unremarkable. Vasculature: The visualized abdominal aorta is normal in size and caliber. There is extensive athero sclerotic calcification of the aorta and its branches. Evaluation of abdominal and pelvic vessels is limited due to lack of intravenous contrast. Pelvic Organs: The uterus is surgically absent. Musculoskeletal: No aggressive focal bony lesions, acute fractures or dislocation. IMPRESSION: 1. No acute abdominal or pelvic findings. Radiation optimization: All CT scans at this facility use at least one of these dose optimization yash hniques: Automated exposure control mA and/or kV adjustment per patient size (includes targeted exams where dose is matched to clinical indication) or iterative reconstruction. HS:Y
[2024-08-19 17:04] LABS: Basophils # (auto) 0 10 ^3/uL (0-0.2); Basophils % (auto) 0.2 % (0.0-2.0); Eosinophils # (auto) 0.1 10 ^3/uL (0-0.8); Eosinophils % (auto) 1.6 % (0.0-7.0); Hematocrit 42.2 % (36.0-46.0); Hemoglobin 14.1 g/dL (12.2-16.2); Lymphocytes # (auto) 1.5 10 ^3/uL (0.4-5.4); Lymphocytes % (auto) 34.8 % (10.0-50.0); Mean Corpuscular Hemoglobin 27.2 pg (28.0-32.0); Mean Corpuscular Hgb Conc. 33.5 g/dL (32.0-36.0); Mean Corpuscular Volume 81.3 fL (80.0-100.0); Monocytes # (auto) 0.4 10 ^3/uL (0-1.3); Monocytes % (auto) 8.4 % (0.0-12.0); Neutrophils # (auto) 2.4 10 ^3/uL (1.6-8.6); Nucleated Red Blood Cells % 0.1 %; Platelet Count (auto) 242 10^3/uL (140-450); Red Blood Cells 5.19 10^6/uL (4.0-5.20); Red Cell Distribution Width 13.5 % (11.8-14.3); White Blood Cell 4.3 10^3/uL (4.4-10.8)
[2024-08-19 17:26] LABS: Chloride 100 mmol/L (98-107); Sodium 137 mmol/L (136-145)
[2024-08-19 17:27] LABS: Anion Gap 8 (5-15); Carbon Dioxide 29 mmol/L (20-31)
[2024-08-19 17:33] LABS: BUN/Creatinine Ratio 22.7 (10.0-20.0); Glucose 74 mg/dL (74-106)
[2024-08-19 17:34] LABS: Blood Urea Nitrogen 25 mg/dL (9-23); Calcium 11.1 mg/dL (8.7-10.4); Potassium 3.3 mmol/L (3.5-5.1)
--- NOTE | 2024-08-19 18:58 | ECG ---
[facility] Test Date: 2024-08-19 Test Time: 14:57:09 Pat Name: ALLAN SWANSON Department: ed Room: Gender: F Rn Clinical Coordinator: kimberly : 1945 Requested By: BENEDICT FIGUEROA Order Number: [id number] Reading MD: Kevin Anglin Measurements Intervals [place] Rate: 72 P: 53 [place]: 200 QRS: -40 QRSD: 150 T: 101 QT: 455 QTc: 499 Interpretive Statements Sinus rhythm Left bundle branch block Electronically Signed On 08-20-2024 12:05:00 PST by Kevin Anglin Please click the below link to view image of tracing.
--- NOTE | 2024-08-19 18:59 | ECG ---
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
[2024-08-19 20:41] LABS: Albumin 4.6 g/dL (3.2-4.8); Bilirubin, Direct 0.2 mg/dL (<0.3); Bilirubin, Total 0.5 mg/dL (0.2-1.0)
[2024-08-19 20:51] LABS: Total Protein 8.4 g/dL (5.7-8.2)
[2024-08-19] MEDS: POTASSIUM CHL 20 Meq TABLET PO ONE (20:59)
[2024-08-19 23:49] VITALS: BP 138/84; PULSE 70; RESP 18; TEMP 98.2; O2SAT 98
== END 2024-08-19 23:58 | disposition short-term general hospital (02) ==
LOC: EDBD 14:53 → ER 14:53
DX: I20.0 Unstable angina (principal); E87.6 Hypokalemia; I13.0 Hypertensive heart and chronic kidney disease with heart failure and stage 1 through stage 4 chronic kidney disease, or unspecified chronic kidney disease; E11.22 Type 2 diabetes mellitus with diabetic chronic kidney disease; I50.9 Heart failure, unspecified; N18.9 Chronic kidney disease, unspecified; E03.9 Hypothyroidism, unspecified; F03.90 Unspecified dementia, unspecified severity, without behavioral disturbance, psychotic disturbance, mood disturbance, and anxiety; Z79.899 Other long term (current) drug therapy; Z86.73 Personal history of transient ischemic attack (TIA), and cerebral infarction without residual deficits; Z90.710 Acquired absence of both cervix and uterus; Z88.0 Allergy status to penicillin; Z88.2 Allergy status to sulfonamides; Z88.5 Allergy status to narcotic agent; Z88.8 Allergy status to other drugs, medicaments and biological substances
CPT/HCPCS: 36415; 74176; 80048; 80076; 84484; 85025; 93005

== ENCOUNTER 2024-11-16 07:05 | Inpatient (IN) | payer MEDICARE, OTHER ==
[~2024-11-16] VITALS: Ht 152.4 cm; Wt 56.0 kg
[2024-11-16 07:40] VITALS: PULSE 101; RESP 22; O2SAT 97
[2024-11-16] MEDS: LORazepam 2MG/ML-1ML VIAL IV ONE (07:43)
[2024-11-16] MEDS: InsuLIN REG 1unit/0.01ml Soln (100units/ml) IV ONE (07:43)
[2024-11-16] MEDS: SODIUM CHLORIDE 0.9% 1,000 ML IV ONE ×2 (07:43→09:40)
--- NOTE | 2024-11-16 07:51 | ED.PDOC ---
History of present illness HPI Comments 79 year old female presents to the ED with a chief complaint of hyperglycemia onset yesterday (11/15/24). Patient states her blood sugar has been high since yesterday and has been experiencing nausea/vomiting, shaking that worsen this morning. Upon ED arrival BS was 417. PMHx DM, HTN, HLD, CHF, Thyroid, TIA. Denies diarrhea, chest pain, shortness of breath, dizziness, headache, blurry vision, numbness/tingling of extremities, dysuria. No other symptoms or modifying factors present at this time. Chief Complaint: Hyperglycemia Time Seen by MD: 07:29 Primary Care Provider: amber History of present illness: Medications, Allergies Allergies: Coded Allergies: Acetaminophen (Verified Allergy, Unknown, 05/08/23) Codeine (Verified Allergy, Unknown, 08/19/24) Hydrocodone (Verified Allergy, Unknown, 05/08/23) Penicillins (Unverified Allergy, Unknown, 04/24/15) Uncoded Allergies: ADHESIVE TAPES (Allergy, Unknown, 05/08/23) SULFA (Allergy, Unknown, 05/08/23) Home Meds Active Scripts Levofloxacin Hemihydrate (LEVOFLOXACIN) 250 Mg Tab, 250 MG PO DAILY for 5 Days, #5 TAB Prov:PATRIA QUIROZ MD 08/10/24 Losartan Potassium (Losartan Potassium) 50 Mg Tab, 50 MG PO DAILY, #30 TAB 3 Refills Prov:ROSAMARIA FLOYD 10/26/23 Insulin Glargine (Lantus) 100 Unit/Ml Inj, 25 UNITS SC QAM, #10 INJ Prov:JOSE DALEY MD 03/30/22 Reported Medications Metoprolol Tartrate (Lopressor) 25 Mg Tb 11/16/24 Divalproex Sodium (Divalproex Sodium Dr) 125 Mg Tab, 125 MG PO BID, TAB 04/10/24 Levothyroxine Sodium (Levothyroxine Sodium) 150 Mcg Tab, 1 TAB PO DAILY 01/07/24 Buspirone Hcl (Buspirone Hcl) 5 Mg Tab, 1 TAB PO BID 10/24/23 Insulin Lispro (Humalog Kwikpen) 100 Unit/Ml Inj, 5 UNITS SC TID BREAKFAST,LUNCH,DINNER 03/08/22 Amlodipine Besylate (Amlodipine Besylate) 10 Mg Tab, 1 TAB PO DAILY 03/08/22 Atorvastatin Calcium (ATORVASTATIN CALCIUM) 40 Mg Tab, 1 TAB PO DAILY 03/08/22 Furosemide (Furosemide) 40 Mg Tab, 1 TAB PO DAILY 03/08/22 Information Source: Patient, Spouse Mode of Arrival: Wheelchair Timing: Days Duration: Since onset Prehospital treatment: None Nelson: Shaky Symptoms: Shaky History of: Diabetes Modifying factors: Nothing Associated signs and symptoms: Nausea, Vomiting Past Medical History PAST MEDICAL HISTORY: CHF, DM, High Lipids, HTN, Thyroid, TIA Surgical History: Hysterectomy PHYSICAL GEOGRAPHER History: No Pertinent PHYSICAL GEOGRAPHER History Family History Family History: Reviewed,noncontributory to illness, Family hx of DM, Family hx of Cancer Social History Smoker: Non-Smoker Alcohol: Occasionally Drugs: Denies Drug Use Lives In: Home Constitutional: reports: others (anamika); denies: chills, diaphoresis, fatigue, fever, malaise, sweats, weakness EENTM: denies: blurred vision, double vision, ear bleeding, ear discharge, ear drainage, ear pain, ear ringing, eye pain, eye redness, hearing loss, mouth pain, mouth swelling, nasal discharge, nose bleeding, nose congestion, nose pain, photophobia, tearing, throat pain, throat swelling, voice changes, others Respiratory: denies: cough, hemoptysis, orthopnea, SOB at rest, shortness of breath, SOB with excertion, stridor, wheezing, others Cardiovascular: denies: chest pain, dizzy spells, diaphoresis, Dyspnea on exertion, edema, irregular heart beat, left arm pain, lightheadedness, palpitations, PND, syncope, others Gastrointestinal: reports: nausea, vomiting; denies: abdomen distended, abdominal pain, blood streaked bowels, constipated, diarrhea, dysphagia, difficulty swallowing, hematemesis, melena, poor appetite, poor fluid intake, rectal bleeding, rectal pain, others Genitourinary: denies: abnormal vagina bleeding, burning, dyspareunia, dysuria, flank pain, frequency, hematuria, incontinence, pain, , vagina discharge, urgency, others Neurological: denies: dizziness, fainting, headache, left sided numbness, left sided weakness, numbness, paresthesia, pre-existing deficit, right sided numbness, right sided weakness, seizure, speech problems, tingling, tremors, weakness, others Musculoskeletal: denies: back pain, gout, joint pain, joint swelling, muscle pain, muscle stiffness, neck pain, others Integumetry: denies: bruises, change in color, change in hair/nails, dryness, laceration, lesions, lumps, rash, wounds, others Allergic/Immunocompromised: denies: Difficulty Healing, Frequent Infections, Hives, Itching, others Hematologic/Lymphatic: denies: anemia, blood clots, easy bleeding, easy bruising, swollen glands, others Endocrine: denies: excessive hunger, excessive sweating, excessive thirst, excessive urination, flushing, intolerance to cold, intolerance to heat, unexplained weight gain, unexplained weight loss, others Psychiatric: denies: anxiety, bipolar disorder, depression, hopeless, panic disorder, schizophrenia, sleepless, suicidal, others All Other Systems: Reviewed and Negative Physical Exam General Appearance: Moderate Distress HEENT: Normal ENT Inspection, Pharynx Normal, TMs Normal Neck: Full Range of Motion, Non-Tender, Normal, Normal Inspection Respiratory: Chest Non-Tender, Lungs Clear, No Accessory Muscle Use, No Respiratory Distress, Normal Breath Sounds Cardiovascular: No Edema, No JVD, No Murmur, No Gallop, Normal Peripheral Pulses, Regular Rate/Rhythm Breast Exam: Deferred Gastrointestinal: No Organomegaly, Non Tender, No Pulsatile Mass, Normal Bowel Sounds, Soft Genitalia: Deferred Pelvic: Deferred Rectal: Deferred Extremities: Normal inspection, Normal range of motion, Non-tender, No pedal edema Musculoskeletal : Apperance: Normal Neurologic: Alert, No Motor Deficits, No Sensory Deficits Cerebellar Function: NOT DONE Reflexes: NOT DONE Skin: Normal Color Peripheral Pulses: 3+ Radial (R), 3+ Radial (L) Lymphatic: No Adenopathy Was a procedure done? Was a procedure done?: No Differential Diagnosis (DM) Differential Diagnosis: Dehydration, Electrolyte Abnormality X-Ray, Labs, Meds, VS Vital Signs Date Time Temp Pulse Resp B/P (MAP) Pulse Ox O2 Delivery O2 Flow Rate FiO2 11/16/24 07:40 101 22 97 Room Air* 0 21 11/16/24 07:40 97.9 101 22 167/69 (101) 97 97.9 11/16/24 07:31 102 11/16/24 07:29 99.1 68 18 168/82 (110) 98 Lab Test 11/16/24 07:38 11/16/24 07:37 11/16/24 07:26 Range/Units White Blood Count 5.6 4.4-10.8 10^3/uL Red Blood Count 4.65 4.0-5.20 10^6/uL Hemoglobin 12.3 12.2-16.2 g/dL Hematocrit 37.8 36.0-46.0 % Mean Corpuscular Volume 81.3 80.0-100.0 fL Mean Corpuscular Hemoglobin 26.3 L 28.0-32.0 pg Mean Corpuscular Hemoglobin Concent 32.4 32.0-36.0 g/dL Red Cell Distribution Width 13.8 11.8-14.3 % Platelet Count 197 140-450 10^3/uL Mean Platelet Volume 8.3 6.9-10.8 fL Neutrophils (%) (Auto) 78.2 37.0-80.0 % Lymphocytes (%) (Auto) 16.1 10.0-50.0 % Monocytes (%) (Auto) 5.3 0.0-12.0 % Eosinophils (%) (Auto) 0.2 0.0-7.0 % Basophils (%) (Auto) 0.2 0.0-2.0 % Neutrophils # (Auto) 4.4 1.6-8.6 10 ^3/uL Lymphocytes # (Auto) 0.9 0.4-5.4 10 ^3/uL Monocytes # (Auto) 0.3 0-1.3 10 ^3/uL Eosinophils # (Auto) 0 0-0.8 10 ^3/uL Basophils # (Auto) 0 0-0.2 10 ^3/uL Nucleated Red Blood Cells 0.2 % Sodium Level 134 L 136-145 mmol/L Potassium Level 3.8 3.5-5.1 mmol/L Chloride Level 97 L 98-107 mmol/L Carbon Dioxide Level 20 20-31 mmol/L Anion Gap 17 H 5-15 Blood Urea Nitrogen 34 H 9-23 mg/dL Creatinine 1.44 H 0.550-1.02 mg/dL Glomerular Filtration Rate Calc 37 >90 mL/min BUN/Creatinine Ratio 23.6 H 10.0-20.0 Serum Glucose 397 H 74-106 mg/dL Serum Osmolality Pending Calcium Level 10.3 8.7-10.4 mg/dL Phosphorus Level 4.4 2.4-5.1 mg/dL Magnesium Level 2.2 1.6-2.6 mg/dL Troponin I High Sensitivity 11 </=34 ng/L Beta-Hydroxybutyric Acid 3.169 H < 0.4 mmol/L POC Glucose 413 *H 417 *H 70-106 mg/dl Current Medications Medications (Trade) Dose Ordered Sig/Reza Route Start Time Stop Time Status Last Admin Sodium Chloride 1,000 ml @ 1,000 mls/hr Q1H ONCE IV 11/16/24 07:30 11/16/24 08:29 DC 11/16/24 07:43 Sodium Chloride 1,000 ml @ 150 mls/hr Q6H40M ONCE IV 11/16/24 07:30 11/16/24 14:09 11/16/24 09:40 Lorazepam (Ativan Inj) 1 mg ONCE ONCE IV 11/16/24 07:30 11/16/24 07:31 DC 11/16/24 07:43 Insulin Human Regular (InsuLIN R) 6 units ONCE ONCE IV 11/16/24 07:30 11/16/24 07:31 DC 11/16/24 07:43 Ondansetron HCl (Zofran) 4 mg ONCE ONCE IV 11/16/24 08:00 11/16/24 08:01 DC 11/16/24 08:08 Patient alert. Blood sugar elevated. Cardiac marker within normal limits. Vitals stable. Establish intravenous access. Was given fluids. She is shaking. Possible anxiety. Was given Ativan. Was given insulin. WBC within normal limits. Hemoglobin within normal limits. Reviewed her history. Explained to the patient. Continue monitoring. EKG reviewed does show left bundle branch block. Patient unstable. She continues to shake. Possible dementia. Possible stroke. She will need further workup with an MRI. Spoke with [place] physician. [place] physician apparently can see through [place] saying that she is stable. Patient oxygen saturation is low. Will place her on oxygen. Has a stated to the [place] physician she is unstable for transfer and will not risk patient's safety. Spoke with hospitalist to admit the patient continue monitor as I may not be able to give full attention to the patient as I have other ER patients. Time of 1ST Reevaluation: 07:59 Reevaluation 1ST: Unchanged Patient Education/Counseling: Diagnosis, Treatment, Prognosis Family Education/Counseling: Diagnosis, Treatment, Prognosis Additional Information The following tests were ordered, and results were reviewed by me: TROP, CBC, UA, BMP Additional Information was gathered from interviewing the following independent historians: I discussed treatment and results with medical personnel and: patient, Departure 1 Departure Time of Disposition: 08:24 Impression: Primary Impression: Uncontrolled diabetes mellitus Qualified Codes: E13.65 - Other specified diabetes mellitus with hyperglycemia Additional Impressions: Hypertension Qualified Codes: I10 - Essential (primary) hypertension Left bundle branch block DKA (diabetic ketoacidosis) Qualified Codes: E13.10 - Other specified diabetes mellitus with ketoacidosis without coma Disposition: ADMITTED INPATIENT Admit to: Med Surg Condition: Guarded Critical Care Note Critical Care Time?: No Stability Stability form required: No Heart Score Heart Score: Heart Score Response (Comments) Value History Slightly Suspicious 0 EKG Normal 0 Age >65 2 Risk Factors >3 or Hx ASHD 2 Troponin Normal limit 0 Total 4 I personally scribed for ARIANA WORLEY MD ([email or web address]) on 11/16/24 at 07:51. Electronically submitted by Gianna Jones ([email or web address]). I personally scribed for ARIANA WORLEY MD ([email or web address]) on 11/16/24 at 07:54. Electronically submitted by Gianna Jones ([email or web address]). ARIANA WORLEY MD Nov 16, 2024 07:51
[2024-11-16 08:01] LABS: Basophils # (auto) 0 10 ^3/uL (0-0.2); Basophils % (auto) 0.2 % (0.0-2.0); Eosinophils # (auto) 0 10 ^3/uL (0-0.8); Eosinophils % (auto) 0.2 % (0.0-7.0); Hematocrit 37.8 % (36.0-46.0); Hemoglobin 12.3 g/dL (12.2-16.2); Lymphocytes # (auto) 0.9 10 ^3/uL (0.4-5.4); Lymphocytes % (auto) 16.1 % (10.0-50.0); Mean Corpuscular Hemoglobin 26.3 pg (28.0-32.0); Mean Corpuscular Hgb Conc. 32.4 g/dL (32.0-36.0); Mean Corpuscular Volume 81.3 fL (80.0-100.0); Monocytes # (auto) 0.3 10 ^3/uL (0-1.3); Monocytes % (auto) 5.3 % (0.0-12.0); Neutrophils # (auto) 4.4 10 ^3/uL (1.6-8.6); Neutrophils % (auto) 78.2 % (37.0-80.0); Nucleated Red Blood Cells % 0.2 %; Platelet Count (auto) 197 10^3/uL (140-450); Red Blood Cells 4.65 10^6/uL (4.0-5.20); Red Cell Distribution Width 13.8 % (11.8-14.3); White Blood Cell 5.6 10^3/uL (4.4-10.8)
[2024-11-16 08:03] LABS: Anion Gap 17 (5-15); Carbon Dioxide 20 mmol/L (20-31); Potassium 3.8 mmol/L (3.5-5.1)
[2024-11-16 08:04] LABS: Calcium 10.3 mg/dL (8.7-10.4); Chloride 97 mmol/L (98-107); Sodium 134 mmol/L (136-145)
[2024-11-16] MEDS: ONDANSETRON HCL 4 MG/2 ML VIAL IV ONE (08:08)
[2024-11-16 08:09] LABS: BUN/Creatinine Ratio 23.6 (10.0-20.0)
[2024-11-16 08:12] LABS: Glucose 397 mg/dL (74-106)
[2024-11-16 08:13] LABS: Blood Urea Nitrogen 34 mg/dL (9-23)
--- NOTE | 2024-11-16 09:10 | ECG ---
[facility] Test Date: 2024-11-16 Test Time: 07:31:36 Pat Name: ALLAN SWANSON Department: ER Room: 0281 Gender: F [employer] Supp[employer] Sales Representative: RYLEY : 1945 Requested By: ARIANA WORLEY Order Number: [id number] Reading MD: Kevin Anglin Measurements Intervals [place] Rate: 102 P: 92 MA: 188 QRS: -32 QRSD: 144 T: 134 QT: 373 QTc: 486 Interpretive Statements Sinus tachycardia Left bundle branch block Electronically Signed On 11-21-2024 17:10:24 PST by Kevin Anglin Please click the below link to view image of tracing.
[2024-11-16] MEDS ORDERED: MET25T (10:09)
[2024-11-16] MEDS ORDERED: ONDANSETRON HCL 4 MG/2 ML VIAL IV PRN (10:15)
[2024-11-16] MEDS: SODIUM CHLORIDE 0.9% 1,000 ML IV SCH ×4 (10:15→17:17)
[2024-11-16] MEDS ORDERED: NITROGLYCERIN 0.4 MG SL TAB SL PRN (10:15)
[2024-11-16] MEDS ORDERED: DEXTROSE (50%) 50ML SYRG IV PRN ×3 (10:15→16:30)
--- NOTE | 2024-11-16 10:17 | DVHHP2 ---
History of Present Illness Reason for Visit: Elevated blood sugar History of Present Illness Fariba Diaz is an 79-year-old female with past medical history of hypertension, hyperlipidemia, diabetes, CHF, dementia, hypothyroidism, CKD, TIA, and hysterectomy presents to the ED with high blood sugar, nausea, cramping, vomiting, and shaking x1 day. Patient reports that she has been compliant with her medications. She reports that she quit drinking, denies smoking, and denies illicit drug use. Patient also reports that you she uses a front wheel walker to ambulate. Patient denies chest pain, shortness of breath, lightheadedness, fever, chills, wheezing, abdominal pain, diarrhea, recent ingestion of spoiled food, recent trauma or injury, and dizziness. 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 dementia) Renal/: Chronic renal insuff Endocrine: Diabetes, Hypothyroidism Past Surgical History: Hysterectomy Smoke: Quit ALCOHOL: none Drugs: None Lives: with Family Domestic Violence: Neg Review of Systems Gastrointestinal: Nausea, Vomiting, Other (Cramping and shaking) Allergies: Coded Allergies: Acetaminophen (Verified Allergy, Unknown, 05/08/23) Codeine (Verified Allergy, Unknown, 08/19/24) Hydrocodone (Verified Allergy, Unknown, 05/08/23) Penicillins (Unverified Allergy, Unknown, 04/24/15) Uncoded Allergies: ADHESIVE TAPES (Allergy, Unknown, 05/08/23) SULFA (Allergy, Unknown, 05/08/23) Medications Current Medications Medications Dose Ordered Sig/Reza Route Start Time Stop Time Status Last Admin Dose Admin Sodium Chloride 1,000 ml @ 500 mls/hr Q2H IV 11/16/24 10:15 11/16/24 14:14 UNV Sodium Chloride 1,000 ml @ 250 mls/hr Q4H IV 11/16/24 14:15 11/16/24 16:14 UNV Sodium Chloride 1,000 ml @ 150 mls/hr Q6H40M IV 11/16/24 16:15 UNV Exam Vital Signs Vital Signs Date Time Temp Pulse Resp B/P (MAP) Pulse Ox O2 Delivery O2 Flow Rate FiO2 11/16/24 07:40 101 22 97 Room Air* 0 21 11/16/24 07:40 97.9 167/69 (101) 97.9 General Appearance: Alert, Oriented X3, Cooperative, No acute distress HEENT: Atraumatic, PERRLA, EOMI, Mucous membr. moist/pink Respiratory: Clear to auscultation, Normal air movement Cardiovascular: Normal S1, Normal S2, No murmurs Abdominal: Normal bowel sounds, Soft, No tenderness, No hepatospenomegaly, No masses Extremities: No clubbing, No cyanosis, No edema, Normal pulses, No tende rness/swelling Skin: No significant lesion Neuro: Normal speech, Strength at 5/5 X4 ext, Normal tone, Sensation intact Psych/Mental Status: Mental status NL, Mood NL Labs/Xrays Labs Test 11/16/24 07:38 11/16/24 07:37 Range/Units White Blood Count 5.6 4.4-10.8 10^3/uL Red Blood Count 4.65 4.0-5.20 10^6/uL Hemoglobin 12.3 12.2-16.2 g/dL Hematocrit 37.8 36.0-46.0 % Mean Corpuscular Volume 81.3 80.0-100.0 fL Mean Corpuscular Hemoglobin 26.3 L 28.0-32.0 pg Mean Corpuscular Hemoglobin Concent 32.4 32.0-36.0 g/dL Red Cell Distribution Width 13.8 11.8-14.3 % Platelet Count 197 140-450 10^3/uL Mean Platelet Volume 8.3 6.9-10.8 fL Neutrophils (%) (Auto) 78.2 37.0-80.0 % Lymphocytes (%) (Auto) 16.1 10.0-50.0 % Monocytes (%) (Auto) 5.3 0.0-12.0 % Eosinophils (%) (Auto) 0.2 0.0-7.0 % Basophils (%) (Auto) 0.2 0.0-2.0 % Neutrophils # (Auto) 4.4 1.6-8.6 10 ^3/uL Lymphocytes # (Auto) 0.9 0.4-5.4 10 ^3/uL Monocytes # (Auto) 0.3 0-1.3 10 ^3/uL Eosinophils # (Auto) 0 0-0.8 10 ^3/uL Basophils # (Auto) 0 0-0.2 10 ^3/uL Nucleated Red Blood Cells 0.2 % Sodium Level 134 L 136-145 mmol/L Potassium Level 3.8 3.5-5.1 mmol/L Chloride Level 97 L 98-107 mmol/L Carbon Dioxide Level 20 20-31 mmol/L Anion Gap 17 H 5-15 Blood Urea Nitrogen 34 H 9-23 mg/dL Creatinine 1.44 H 0.550-1.02 mg/dL Glomerular Filtration Rate Calc 37 >90 mL/min BUN/Creatinine Ratio 23.6 H 10.0-20.0 Serum Glucose 397 H 74-106 mg/dL Calcium Level 10.3 8.7-10.4 mg/dL Troponin I High Sensitivity 11 </=34 ng/L POC Glucose 413 *H 70-106 mg/dl Assessment/Plan Assessment/Plan Assessment Intractable abdominal cramping likely due to uncontrolled diabetes type 2 DKA with uncontrolled DM Type 2 Gap open MACARIO History of hypertension History of hyperlipidemia History of CHF History of dementia History of hypothyroid disease History of CKD History of TIA History of hysterectomy History of alcohol use Plan Admit to ICU Insulin drip DKA protocol Hemoglobin A1c ISS and Accu-Cheks Troponin negative x1 UA done Antiemetics Benzos NS 2 L given in ED EKG 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 for 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 Home medications reconciled Pain Management Plan discussed with: Patient My Orders Orders - TARAN PÉREZ ZOOLOGY TEACHER Procedure Category Date Status Time Urinalysis LAB 11/16/24 Logged 10:04 Insulin Drip Protocol MICHELLE 11/16/24 In Process Sodium Chloride 0.9% PHA 11/16/24 Logged 10:15 Sodium Chloride 0.9% PHA 11/16/24 Logged 14:15 Sodium Chloride 0.9% PHA 11/16/24 Logged 16:15 Insulin Algorithm # 1 PHA 11/16/24 Transmitted 10:15 Dextrose 50% Syringe PHA 11/16/24 Transmitted 10:15 Glucose Blood PHA 11/16/24 Transmitted (Accu-Chek Comfort 10:30 Complete Blood Count LAB 11/16/24 Logged 10:04 Basic Metabolic Panel LAB 11/16/24 Logged 10:04 Phosphorus LAB 11/16/24 Logged 10:04 Magnesium LAB 11/16/24 Logged 10:04 Osmolality, Serum LAB 11/16/24 Logged 10:04 Abg W/ Co-Ox RT 11/16/24 Logged 10:04 Basic Metabolic Panel LAB 11/16/24 Transmitted 10:04 Basic Metabolic Panel LAB 11/16/24 Logged 16:04 Basic Metabolic Panel LAB 11/16/24 Logged 22:04 Basic Metabolic Panel LAB 11/17/24 Verified 04:04 Neurological MICHELLE 11/16/24 In Process Assessment 10:04 Vs/Hemodynamics MICHELLE 11/16/24 In Process 10:04 Acetone LAB 11/16/24 Logged 10:04 Long Acting Insulin PHA 11/16/24 Transmitted 10:15 Long Acting Insulin PHA 11/17/24 Transmitted 10:00 Admit ADMIT 11/16/24 Transmitted 10:04 Allergies MICHELLE 11/16/24 In Process 10:04 Code Status CODE 11/16/24 Transmitted 10:04 Ondansetron Hcl PHA 11/16/24 Transmitted (Zofran) 10:15 Complete Blood Count LAB 11/17/24 Verified 04:00 Comprehensive LAB 11/17/24 Verified Metabolic Panel 04:00 Npo (Nothing By DIET 11/16/24 Transmitted Mouth) Diet Lunch Nitroglycerin PHA 11/16/24 Transmitted Sublingual (Ntrostat 10:15 Stat Ekg For Chest MICHELLE 11/16/24 In Process Pain 10:04 Notify Md Of Changes MICHELLE 11/16/24 In Process From Base 10:04 [place] Clerk For MICHELLE 11/16/24 In Process 24 Hours 10:04 Emergency Dysrhythmia MICHELLE 11/16/24 In Process Protocol 10:04 Rhythm Strips Once MICHELLE 11/16/24 In Process Every Shift 10:04 Oxygen By Nasal RT 11/16/24 Transmitted Cannula 10:04 NS PHA 11/16/24 Transmitted 10:15 Date of Service: Nov 16, 2024 Billing Provider: TARAN PÉREZ Common Visit Codes: [id number] INP/OBS CARE (HIGH) TARAN PÉREZ Nov 16, 2024 10:17
[2024-11-16 10:21] LABS: Base Excess -4.5 mmol/L (-2.0-3.0)
[2024-11-16 10:41] LABS: Magnesium 2.2 mg/dL (1.6-2.6)
[2024-11-16 10:42] LABS: Phosphorus 4.4 mg/dL (2.4-5.1)
--- NOTE | 2024-11-16 10:45 | DVH ---
Exam: XY KUB ABDOMEN SINGLE VIEW Indication: cramping Comparison: None Technique: 1 radiographic views of the abdomen. Findings: Moderate volume colonic stool. Nonobstructive bowel gas pattern noted. There is no definite evidence for pneumoperitoneum. No abnormal calcifications noted. Impression: Moderate volume colonic stool.
[2024-11-16 10:46] LABS: Basophils # (auto) 0 10 ^3/uL (0-0.2); Basophils % (auto) 0.1 % (0.0-2.0); Eosinophils # (auto) 0 10 ^3/uL (0-0.8); Hematocrit 38.7 % (36.0-46.0); Lymphocytes # (auto) 0.8 10 ^3/uL (0.4-5.4); Monocytes # (auto) 0.3 10 ^3/uL (0-1.3)
[2024-11-16 10:50] LABS: Eosinophils % (auto) 0.2 % (0.0-7.0); Hemoglobin 12.5 g/dL (12.2-16.2); Lymphocytes % (auto) 16.2 % (10.0-50.0); Mean Corpuscular Hemoglobin 26.5 pg (28.0-32.0); Mean Corpuscular Hgb Conc. 32.3 g/dL (32.0-36.0); Mean Corpuscular Volume 81.8 fL (80.0-100.0); Neutrophils # (auto) 4.1 10 ^3/uL (1.6-8.6); Neutrophils % (auto) 78.5 % (37.0-80.0); Platelet Count (auto) 181 10^3/uL (140-450); Red Blood Cells 4.73 10^6/uL (4.0-5.20); Red Cell Distribution Width 13.9 % (11.8-14.3); White Blood Cell 5.2 10^3/uL (4.4-10.8)
[2024-11-16 10:56] LABS: Chloride 101 mmol/L (98-107); Potassium 3.8 mmol/L (3.5-5.1)
[2024-11-16 10:58] LABS: Anion Gap 14 (5-15); Calcium 10.4 mg/dL (8.7-10.4); Carbon Dioxide 20 mmol/L (20-31); Sodium 135 mmol/L (136-145)
[2024-11-16 11:03] LABS: BUN/Creatinine Ratio 22.7 (10.0-20.0)
[2024-11-16 11:09] LABS: Blood Urea Nitrogen 29 mg/dL (9-23); Glucose 305 mg/dL (74-106)
[2024-11-16] MEDS: ACCU-CHEK COMFORT CURVE STRIP VI SCH ×3 (12:00→17:24)
[2024-11-16] MEDS: INSULIN DRIP 100 UNIT/100ML 100 ML IV SCH ×3 (12:00→14:06)
[2024-11-16 12:17] LABS: Base Excess -6.6 mmol/L (-2.0-3.0)
[2024-11-16] MEDS: INSULIN LANTUS (GLARGINE) 1 /0.01ml (100units/ml) SC ONE ×2 (12:21→12:25)
[2024-11-16 14:33] LABS: Urine Bacteria FEW /hpf (None Seen); Urine Blood Negative /uL (Negative); Urine Clarity Turbid (Clear); Urine Color Light-Yellow (Yellow); Urine Hyaline Cast MOD /lpf (0 - 2); Urine Protein, UAD TRACE (Negative); Urine Specific Gravity 1.012 (1.001-1.035); Urine Squamous Epithelial Cell FEW /hpf (<5); Urine Urobilinogen Normal (Negative); Urine WBC 58 /HPF (0-5); Urine WBC Clumps PRESENT /hpf (None Seen)
[2024-11-16] MEDS ORDERED: SODIUM CHLORIDE 0.9% 1,000 ML IV SCH (16:15)
[2024-11-16] MEDS: InsuLIN REG 1unit/0.01ml Soln (100units/ml) SC SCH (17:00)
[2024-11-16 20:00] VITALS: O2SAT 97
[2024-11-16] MEDS: ATORVASTATIN 20 MG TAB PO SCH (20:48)
[2024-11-16] MEDS: busPIRone HCL 10 MG TAB PO SCH (20:49)
[2024-11-16 21:00] VITALS: BP 135/60; PULSE 85; RESP 17; TEMP 98.1; O2SAT 96
[2024-11-17] VITALS (7 sets, daily range): BP systolic 114–159; BP diastolic 36–56; PULSE 75–82; RESP 16–17; TEMP 97.6–98; O2SAT 94–97
[2024-11-17] MEDS: LEVOTHYROXINE SODIUM 50 MCG TAB PO SCH (06:16)
[2024-11-17] MEDS: LEVOTHYROXINE SODIUM 100 MCG TAB PO SCH (06:16)
[2024-11-17] MEDS ORDERED: LEVOTHYROXINE SODIUM 100 MCG TAB PO SCH (07:00)
[2024-11-17 07:38] LABS: Basophils # (auto) 0 10 ^3/uL (0-0.2); Eosinophils # (auto) 0 10 ^3/uL (0-0.8); Hematocrit 31.5 % (36.0-46.0); Hemoglobin 10.5 g/dL (12.2-16.2); Red Blood Cells 3.89 10^6/uL (4.0-5.20); Red Cell Distribution Width 14.2 % (11.8-14.3); White Blood Cell 4.2 10^3/uL (4.4-10.8)
[2024-11-17 07:41] LABS: Basophils % (auto) 0.1 % (0.0-2.0); Eosinophils % (auto) 1.1 % (0.0-7.0); Lymphocytes # (auto) 1.5 10 ^3/uL (0.4-5.4); Lymphocytes % (auto) 35.1 % (10.0-50.0); Mean Corpuscular Hemoglobin 27.1 pg (28.0-32.0); Mean Corpuscular Hgb Conc. 33.5 g/dL (32.0-36.0); Monocytes # (auto) 0.3 10 ^3/uL (0-1.3); Neutrophils # (auto) 2.3 10 ^3/uL (1.6-8.6); Neutrophils % (auto) 55.7 % (37.0-80.0); Nucleated Red Blood Cells % 0.1 %; Platelet Count (auto) 167 10^3/uL (140-450)
[2024-11-17 07:55] LABS: Alkaline Phosphatase 72 U/L (46-116); Anion Gap 11 (5-15); BUN/Creatinine Ratio 17.4 (10.0-20.0); Bilirubin, Total 0.5 mg/dL (0.2-1.0); Blood Urea Nitrogen 16 mg/dL (9-23); Calcium 9.2 mg/dL (8.7-10.4); Carbon Dioxide 21 mmol/L (20-31); Glucose 83 mg/dL (74-106); Potassium 3.7 mmol/L (3.5-5.1); Sodium 143 mmol/L (136-145); Total Protein 6.8 g/dL (5.7-8.2)
[2024-11-17 08:12] LABS: Chloride 111 mmol/L (98-107)
[2024-11-17 08:13] LABS: Alanine Aminotransferase < 9 U/L (7-40); Aspartate Aminotransferase 9 U/L (13-40)
[2024-11-17] MEDS ORDERED: INSULIN LANTUS (GLARGINE) 1 /0.01ml (100units/ml) SC SCH (10:00)
[2024-11-17] MEDS: LOSARTAN POTASSIUM 50 MG TAB PO SCH (10:03)
[2024-11-17] MEDS: amLODIPine BESYLATE 5 MG TAB PO SCH (10:05)
[2024-11-17] MEDS: FUROSEMIDE 40 MG TAB PO SCH (10:06)
--- NOTE | 2024-11-17 12:40 | DVHPN2 ---
Progress Note Date Seen: Nov 17, 2024 Medical Necessity Reason Pt with a Central, PICC or Fol: No Subjective Patient reports: No new complaints Review of Systems: HEENT:Normal, CVS:Normal, RESPIRATORY:Normal, GI:Normal, :Normal, MSK:Normal, NEURO:Normal Objective vital signs Vital Sign Date Time Temp Pulse Resp B/P (MAP) Pulse Ox O2 Delivery O2 Flow Rate FiO2 11/17/24 10:06 141/61 11/17/24 08:51 97.8 80 16 96 97.8 11/17/24 07:40 Room Air* 0 21 Total Intake and Output 11/16/24 11/16/24 11/17/24 15:00 23:00 07:00 Intake Total 2306 ml 1000 ml 350 ml Balance 2306 ml 1000 ml 350 ml medications Current Medications Medications Dose Ordered Sig/Reza Route Start Time Stop Time Status Last Admin Dose Admin Ondansetron HCl 4 mg Q4HP PRN IV 11/16/24 10:15 Nitroglycerin 0.4 mg Q5MINP PRN SL 11/16/24 10:15 Furosemide 40 mg DAILY PO 11/17/24 10:00 11/17/24 10:06 40 MG Losartan Potassium 50 mg DAILY PO 11/17/24 10:00 11/17/24 10:03 50 MG Amlodipine Besylate 10 mg DAILY PO 11/17/24 10:00 11/17/24 10:05 10 MG Atorvastatin Calcium 40 mg HS PO 11/16/24 22:00 11/16/24 20:48 40 MG Buspirone HCl 5 mg BID PO 11/16/24 22:00 11/17/24 10:05 5 MG Levothyroxine Sodium 100 mcg QAM PO 11/17/24 07:00 11/17/24 06:16 100 MCG Divalproex Sodium 125 mg BID PO 11/16/24 22:00 11/17/24 10:04 125 MG Levothyroxine Sodium 50 mcg QAM PO 11/17/24 07:00 11/17/24 06:16 50 MCG Diagnostic Test (Pha) 1 strip ACHS 11/16/24 17:00 11/17/24 12:05 1 STRIP Insulin Human Regular ACHS SC 11/16/24 17:00 11/17/24 12:07 10 UNITS Dextrose 50 ml UD PRN IV 11/16/24 16:30 Sodium Chloride 1,000 ml @ 100 mls/hr Q10H IV 11/16/24 16:30 11/17/24 02:30 100 MLS/HR Examination: GENERAL:Normal, HEENT:Normal, NECK:Normal, LUNGS:Normal, CVS:Normal, ABDOMEN:Normal, MSK:Normal, SKIN:Normal, NEURO:Normal, :Normal laboratory and microbiology Laboratory Tests 11/17/24 06:41 Test 11/17/24 06:41 Range/Units Serum Glucose 83 74-106 mg/dL Problem List/Assessment/Plan Problem List/Assessment/Plan #1 dka: lantus, ssi #2 dementia #3 uti: culture, iv rocephin #4 htn #5 chronic diastolic heart failure #6 hypothyroidism: check tsh #7 acute renal failure ?vasomotor nephropathy: improved advance care planning- full code- time spent 19 mins Plan discussed with: Patient My Orders My Orders Orders - ADRIANA EVANS MD Procedure Category Date Status Time Insulin Lantus PHA 11/18/24 Verified (Glargine) (Lantus) 07:00 Insulin Lantus PHA 11/17/24 Verified (Glargine) (Lantus) 12:30 Pt Request For Service PT 11/17/24 Verified 12:29 Urine Bacterial ZAYDA 11/17/24 Verified Culture 12:29 Ceftriaxone Ivpb PHA 11/18/24 Verified Rocephin 09:00 Ceftriaxone Ivpb PHA 11/17/24 Verified Rocephin 12:30 Basic Metabolic Panel LAB 11/18/24 Verified 06:00 Complete Blood Count LAB 11/18/24 Verified 06:00 Magnesium LAB 11/18/24 Verified 05:00 Thyroid Stimulating LAB 11/18/24 Verified Hormone 05:00 Hemoglobin A1c LAB 11/18/24 Verified 06:00 Date of Service: Nov 17, 2024 Billing Provider: ADRIANA EVANS MD Common Visit Codes: [id number] INP/OBS CARE(HIGH) Secondary Visit Codes: [id number] CARE PLAN 30 MINUTES ADRIANA EVANS MD Nov 17, 2024 12:40
[2024-11-17] MEDS: cefTRIAXone 1GM/50ML D5W 50 ML IV ONE (15:15)
[2024-11-17] MEDS: INSULIN LANTUS (GLARGINE) 1 /0.01ml (100units/ml) SC ONE (15:21)
[2024-11-18] VITALS (9 sets, daily range): BP systolic 110–167; BP diastolic 42–74; PULSE 65–85; RESP 14–17; TEMP 97.6–98.3; O2SAT 90–96
[2024-11-18 06:00] LABS: Basophils # (auto) 0 10 ^3/uL (0-0.2); Basophils % (auto) 0.4 % (0.0-2.0); Eosinophils # (auto) 0.1 10 ^3/uL (0-0.8); Eosinophils % (auto) 3.7 % (0.0-7.0); Lymphocytes # (auto) 1.4 10 ^3/uL (0.4-5.4); Mean Corpuscular Volume 80.7 fL (80.0-100.0); Monocytes # (auto) 0.4 10 ^3/uL (0-1.3); Monocytes % (auto) 12.3 % (0.0-12.0); Neutrophils # (auto) 1.4 10 ^3/uL (1.6-8.6); Nucleated Red Blood Cells % 0.1 %
[2024-11-18 06:03] LABS: Hematocrit 31.1 % (36.0-46.0); Hemoglobin 10.5 g/dL (12.2-16.2); Lymphocytes % (auto) 41.4 % (10.0-50.0); Mean Corpuscular Hemoglobin 27.2 pg (28.0-32.0); Mean Corpuscular Hgb Conc. 33.8 g/dL (32.0-36.0); Neutrophils % (auto) 42.2 % (37.0-80.0); Platelet Count (auto) 151 10^3/uL (140-450); Red Blood Cells 3.86 10^6/uL (4.0-5.20); Red Cell Distribution Width 14.5 % (11.8-14.3); White Blood Cell 3.4 10^3/uL (4.4-10.8)
[2024-11-18 06:11] LABS: Anion Gap 8 (5-15); Carbon Dioxide 26 mmol/L (20-31); Sodium 142 mmol/L (136-145)
[2024-11-18 06:12] LABS: Calcium 9.3 mg/dL (8.7-10.4)
[2024-11-18 06:17] LABS: BUN/Creatinine Ratio 14.3 (10.0-20.0); Blood Urea Nitrogen 12 mg/dL (9-23)
[2024-11-18 06:18] LABS: Chloride 108 mmol/L (98-107); Glucose 221 mg/dL (74-106)
[2024-11-18] MEDS: INSULIN LANTUS (GLARGINE) 1 /0.01ml (100units/ml) SC SCH (06:18)
[2024-11-18] MEDS: cefTRIAXone 1GM/50ML D5W 50 ML IV SCH (09:15)
--- NOTE | 2024-11-18 11:55 | DVHPN2 ---
Progress Note Date Seen: Nov 18, 2024 Medical Necessity Reason Pt with a Central, PICC or Fol: No Subjective Patient reports: No new complaints Review of Systems: HEENT:Normal, CVS:Normal, RESPIRATORY:Normal, GI:Normal, :Normal, MSK:Normal, NEURO:Normal Objective vital signs Vital Sign Date Time Temp Pulse Resp B/P (MAP) Pulse Ox O2 Delivery O2 Flow Rate FiO2 11/18/24 09:13 136/62 11/18/24 08:30 98.3 68 17 96 98.3 11/18/24 08:00 Room Air* 0 21 Total Intake and Output 11/17/24 11/17/24 11/18/24 15:00 23:00 07:00 Intake Total 550 ml 408 ml 500 ml Output Total 300 ml Balance 550 ml 408 ml 200 ml medications Current Medications Medications Dose Ordered Sig/Reza Route Start Time Stop Time Status Last Admin Dose Admin Ondansetron HCl 4 mg Q4HP PRN IV 11/16/24 10:15 Nitroglycerin 0.4 mg Q5MINP PRN SL 11/16/24 10:15 Furosemide 40 mg DAILY PO 11/17/24 10:00 11/18/24 09:13 40 MG Losartan Potassium 50 mg DAILY PO 11/17/24 10:00 11/18/24 09:12 50 MG Atorvastatin Calcium 40 mg HS PO 11/16/24 22:00 11/17/24 21:37 40 MG Buspirone HCl 5 mg BID PO 11/16/24 22:00 11/18/24 09:13 5 MG Levothyroxine Sodium 100 mcg QAM PO 11/17/24 07:00 11/18/24 06:20 100 MCG Divalproex Sodium 125 mg BID PO 11/16/24 22:00 11/18/24 09:13 125 MG Levothyroxine Sodium 50 mcg QAM PO 11/17/24 07:00 11/18/24 06:20 50 MCG Diagnostic Test (Pha) 1 strip ACHS 11/16/24 17:00 11/18/24 11:32 1 STRIP Insulin Human Regular ACHS SC 11/16/24 17:00 11/18/24 11:32 6 UNITS Dextrose 50 ml UD PRN IV 11/16/24 16:30 Insulin Glargine 15 units QAM SC 11/18/24 07:00 11/18/24 06:18 15 UNITS Ceftriaxone Sodium 50 ml @ 100 mls/hr DAILY@09 IV 11/18/24 09:00 11/18/24 09:15 100 MLS/HR Examination: GENERAL:Normal, HEENT:Normal, NECK:Normal, LUNGS:Normal, CVS:Normal, ABDOMEN:Normal, MSK:Normal, SKIN:Normal, NEURO:Normal, :Normal laboratory and microbiology Laboratory Tests 11/18/24 05:14 Test 11/18/24 05:14 Range/Units Serum Glucose 221 H 74-106 mg/dL Problem List/Assessment/Plan Problem List/Assessment/Plan #1 dka: lantus, ssi #2 dementia #3 uti: culture, iv rocephin #4 htn #5 chronic diastolic heart failure #6 hypothyroidism: check t3/t4 #7 acute renal failure ?vasomotor nephropathy: improved advance care planning- full code- time spent 19 mins Plan discussed with: Patient My Orders My Orders Orders - ADRIANA EVANS MD Procedure Category Date Status Time Insulin Lantus PHA 11/18/24 In Process (Glargine) (Lantus) 07:00 Pt Request For Service PT 11/17/24 Logged 12:29 Urine Bacterial ZAYDA 11/17/24 In Process Culture 12:29 Ceftriaxone 1gm/50ml PHA 11/18/24 In Process D5w (Rocephin) 09:00 Date of Service: Nov 18, 2024 Billing Provider: ADRIANA EVANS MD Common Visit Codes: [id number] INP/OBS CARE(HIGH) ADRIANA EVANS MD Nov 18, 2024 11:55
[2024-11-18] MEDS: KETOROLAC TROMETH 30 MG/ML 1ML VIAL IV ONE (17:29)
[2024-11-18] MEDS: hydrALAZINE HCL 20 MG/ML VL IV ONE (17:29)
[2024-11-18] MEDS ORDERED: DEXTROSE (50%) 50ML SYRG IV PRN (21:45)
[2024-11-19] VITALS (9 sets, daily range): BP systolic 150–176; BP diastolic 66–85; PULSE 72–95; RESP 14–19; TEMP 36.6; O2SAT 94–99
[2024-11-19] MEDS: ACCU-CHEK COMFORT CURVE STRIP VI SCH (00:21)
[2024-11-19] MEDS: InsuLIN REG 1unit/0.01ml Soln (100units/ml) SC SCH (00:22)
[2024-11-19] MEDS: INSULIN LANTUS (GLARGINE) 1 /0.01ml (100units/ml) SC SCH (06:23)
[2024-11-19 06:56] LABS: Potassium 3.8 mmol/L (3.5-5.1); Sodium 141 mmol/L (136-145)
[2024-11-19 06:57] LABS: Anion Gap 7 (5-15); Carbon Dioxide 25 mmol/L (20-31)
[2024-11-19 06:58] LABS: Calcium 9.6 mg/dL (8.7-10.4)
[2024-11-19 06:59] LABS: Chloride 109 mmol/L (98-107)
[2024-11-19 07:02] LABS: Blood Urea Nitrogen 12 mg/dL (9-23)
[2024-11-19 07:07] LABS: Glucose 176 mg/dL (74-106)
[2024-11-19 07:10] LABS: Free T3 3.45 pg/mL (2.3-4.2); Free T4 (Free Thyroxine) 1.85 ng/dL (0.89-1.76)
[2024-11-19] MEDS ORDERED: CEFD300C2 PO (14:43)
--- NOTE | 2024-11-19 14:44 | DVHDS2 ---
Discharge Summary Date of Admission Nov 16, 2024 at 10:04 Date of Discharge: Nov 19, 2024 Labs/Diagnostic Data: Laboratory Results Test 11/19/24 08:09 11/19/24 06:19 11/18/24 05:14 11/17/24 06:41 POC Glucose 161 mg/dl (70-106) Sodium Level 141 mmol/L (136-145) Potassium Level 3.8 mmol/L (3.5-5.1) Chloride Level 109 mmol/L (98-107) Carbon Dioxide Level 25 mmol/L (20-31) Anion Gap 7 (5-15) Blood Urea Nitrogen 12 mg/dL (9-23) Creatinine 0.92 mg/dL (0.550-1.02) Glomerular Filtration Rate Calc 63 mL/min (>90) BUN/Creatinine Ratio 13.0 (10.0-20.0) Serum Glucose 176 mg/dL (74-106) Calcium Level 9.6 mg/dL (8.7-10.4) Free Thyroxine (T4) Calculated 1.85 ng/dL (0.89-1.76) Free Triiodothyronine (T3) pg/mL 3.45 pg/mL (2.3-4.2) White Blood Count 3.4 10^3/uL (4.4-10.8) Red Blood Count 3.86 10^6/uL (4.0-5.20) Hemoglobin 10.5 g/dL (12.2-16.2) Hematocrit 31.1 % (36.0-46.0) Mean Corpuscular Volume 80.7 fL (80.0-100.0) Mean Corpuscular Hemoglobin 27.2 pg (28.0-32.0) Mean Corpuscular Hemoglobin Concent 33.8 g/dL (32.0-36.0) Red Cell Distribution Width 14.5 % (11.8-14.3) Platelet Count 151 10^3/uL (140-450) Mean Platelet Volume 7.9 fL (6.9-10.8) Neutrophils (%) (Auto) 42.2 % (37.0-80.0) Lymphocytes (%) (Auto) 41.4 % (10.0-50.0) Monocytes (%) (Auto) 12.3 % (0.0-12.0) Eosinophils (%) (Auto) 3.7 % (0.0-7.0) Basophils (%) (Auto) 0.4 % (0.0-2.0) Neutrophils # (Auto) 1.4 10 ^3/uL (1.6-8.6) Lymphocytes # (Auto) 1.4 10 ^3/uL (0.4-5.4) Monocytes # (Auto) 0.4 10 ^3/uL (0-1.3) Eosinophils # (Auto) 0.1 10 ^3/uL (0-0.8) Basophils # (Auto) 0 10 ^3/uL (0-0.2) Nucleated Red Blood Cells 0.1 % Hemoglobin A1c 9.4 % A1C (<5.7) Magnesium Level 2.0 mg/dL (1.6-2.6) Thyroid Stimulating Hormone (TSH) 0.02 uIU/mL (0.55-4.78) Total Bilirubin 0.5 mg/dL (0.2-1.0) Aspartate Amino Transferase (AST) 9 U/L (13-40) Alanine Aminotransferase (ALT) < 9 U/L (7-40) Alkaline Phosphatase 72 U/L (46-116) Total Protein 6.8 g/dL (5.7-8.2) Albumin 4.0 g/dL (3.2-4.8) Test 11/16/24 12:12 11/16/24 07:47 11/16/24 07:38 Blood Gas Specimen Type Arterial Blood Gas Sample Site Right radial Blood Gas Patient Temperature 37.0 Arterial Blood Date Drawn [id number] Arterial Blood pH 7.370 (7.350-7.450) Arterial Blood Partial Pressure CO2 31.2 mmHg (32.0-45.0) Arterial Blood Partial Pressure O2 68.0 mmHg (83.0-108.0) Arterial Blood HCO3 17.6 mmol/L (21.0-28.0) Arterial Blood Oxygen Saturation 93.1 % (94.0-98.0) Arterial Blood Base Excess -6.6 mmol/L (-2.0-3.0) Arterial Blood Oxyhemoglobin 92.3 % (94.0-98.0) Arterial Blood Carboxyhemoglobin 0.4 % (0.5-1.5) Arterial Blood Methemoglobin 0.5 % (0.0-1.5) [place] Test Yes Blood Gas Total Hemoglobin 11.50 g/dL (12.0-16.0) Blood Gas Liter Flow 0.00 Blood Gas Modality Room air FiO2 % 21.0 Urine Color Light-yellow (Yellow) Urine Clarity Turbid (Clear) Urine pH 5.0 (5.0-9.0) Urine Specific [place] 1.012 (1.001-1.035) Urine Protein Trace (Negative) Urine Ketones 2+ (Negative) Urine Blood Negative /uL (Negative) Urine Nitrite Negative (Negative) Urine Bilirubin Negative (Negative) Urine Urobilinogen Normal mg/dL (Negative) Urine Leukocyte Esterase 3+ /uL (Negative) Urine RBC 2 /hpf (0 - 4) Urine WBC Clumps Present /hpf (None Seen) Urine Microscopic WBC 58 /HPF (0-5) Urine Squamous Epithelial Cells Few /hpf (<5) Urine Bacteria Few /hpf (None Seen) Urine Hyaline Casts Mod /lpf (0 - 2) Urine Glucose 4+ mg/dL (Normal) Serum Osmolality 315 mOsm/kg (278-298) Phosphorus Level 4.4 mg/dL (2.4-5.1) Troponin I High Sensitivity 11 ng/L (</=34) Beta-Hydroxybutyric Acid 3.169 mmol/L (< 0.4) Other Laboratory Tests 11/19/24 06:19 11/18/24 05:14 Brief Hx & Hospital Course: SEE DICTATED NOTE Condition at Discharge: Fair Final Diagnosis/Problems List DIABETES HTN Discharge Disposition: Home Discharge Instruct/Medications Diet: Consistent carbohydrate, Cardiac 2g Na,low cholest Activity: No Restrictions, As Tolerated Follow Up/Referral: FU WITH PCP IN 1 WK Medications: RESUME HOME MEDS SCRIPT TO PHARMACY Discharge Statement: "Patient was advised to return to the ER or call 911 if any headaches, dizziness, shortness of breath, chest pain, abdominal pain, bleeding, fevers, or worsening of medical condition. Patient was counseled about treatment plan, medications, possible side effects, patientverbalized understanding. All questions were answered to the best of my ability. This discharge took greater then 30 minutes in planning, reviewing documentation, counseling the patient, and discussing with other team members." ASSESSMENT ASSESSMENT Assessment DIABETES HTN Date of Service: Nov 19, 2024 Billing Provider: ADRIANA EVANS MD Common Visit Codes: [id number] DISCH DAY >30min ADRIANA EVANS MD Nov 19, 2024 14:44
[2024-11-19] MEDS: amLODIPine BESYLATE 5 MG TAB PO ONE (14:56)
[2024-11-19] MEDS: METOPROLOL SUCCINATE XL 50 MG TAB PO ONE (14:58)
--- NOTE | 2024-11-19 15:04 | DVHDS ---
DATE OF DISCHARGE: 11/19/2024 HISTORY OF PRESENT ILLNESS: The patient is an 79-year-old lady, who was admitted with high blood sugars, nausea, vomiting, and shaking. She has history of hypertension, diabetes, dementia, CKD, and hypothyroidism. HOSPITAL COURSE: The patient was noted to have UTI. She also had elevated blood sugars of 413 with a creatinine of 1.4 and DKA. The patient was placed on insulin, and subsequently had improvement in the symptoms. The patient's blood sugar is now under control. The patient's urine cultures have so far been negative. Her hemoglobin A1c was 9.4. The patient's tox screen was negative and serology was also negative for COVID. The patient will now be discharged home to resume her home medications as well as to be on cefdinir 300 mg p.o. b.i.d. for 7 days. She will follow up with her primary in 1 week. FINAL DIAGNOSES: Therefore, * Diabetic ketoacidosis. * Dementia. * Urinary tract infection. * Hypertension. * Chronic diastolic heart failure. * Acute renal failure, questionable vasomotor nephropathy. * Hypothyroidism. * Chronic diastolic heart failure. Time spent in discharge planning and review of plan with the patient and nursing was 38 minutes. MD RYAN Garrison/KEEGAN TID: [id number] RECEIPT: [id number]
[2024-11-20] MEDS ORDERED: amLODIPine BESYLATE 5 MG TAB PO SCH (10:00)
[2024-11-20] MEDS ORDERED: METOPROLOL SUCCINATE XL 50 MG TAB PO SCH (10:00)
== END 2024-11-19 18:35 | disposition home or self-care (01) | DRG 637 ==
LOC: ER 07:05 → OVERFLOW 10:04 → TELE-WESTW 18:20 → WEST WING 11-17 05:23
PROVIDERS: ADMIT Internal Medicine; ATTEND Internal Medicine
DX: E11.10 Type 2 diabetes mellitus with ketoacidosis without coma (principal); N17.0 Acute kidney failure with tubular necrosis; I13.0 Hypertensive heart and chronic kidney disease with heart failure and stage 1 through stage 4 chronic kidney disease, or unspecified chronic kidney disease; N39.0 Urinary tract infection, site not specified; I50.32 Chronic diastolic (congestive) heart failure; Z20.822 Contact with and (suspected) exposure to COVID-19; E11.22 Type 2 diabetes mellitus with diabetic chronic kidney disease; E03.9 Hypothyroidism, unspecified; F03.90 Unspecified dementia, unspecified severity, without behavioral disturbance, psychotic disturbance, mood disturbance, and anxiety; E78.5 Hyperlipidemia, unspecified; N18.9 Chronic kidney disease, unspecified; I44.7 Left bundle-branch block, unspecified; Z86.73 Personal history of transient ischemic attack (TIA), and cerebral infarction without residual deficits; Z88.6 Allergy status to analgesic agent; Z88.5 Allergy status to narcotic agent; Z88.2 Allergy status to sulfonamides; Z88.8 Allergy status to other drugs, medicaments and biological substances; Z79.4 Long term (current) use of insulin; Z79.899 Other long term (current) drug therapy; Z79.84 Long term (current) use of oral hypoglycemic drugs; Z88.0 Allergy status to penicillin; Z90.710 Acquired absence of both cervix and uterus
CPT/HCPCS: 36415; 36600; 74018; 80048; 80053; 81001; 82010; 82805; 82962; 83036; 83735; 83930; 84100; 84439; 84443; 84481; 84484; 85025; 87086; 93005; 96361; 96374; 96375; 97110; 97116; 97163; 97530; G0378; J1815; J1885; J2405

== ENCOUNTER 2024-12-11 09:34 | Inpatient (IN) | payer MEDICARE, OTHER ==
[~2024-12-11] VITALS: Ht 152.4 cm; Wt 53.9 kg
[~2024-12-11 09:34] MED LIST changes: +CEFD300C2 PO; +MET25T
[2024-12-11 10:27] VITALS: PULSE 120; RESP 20; O2SAT 97
--- NOTE | 2024-12-11 10:27 | ED.PDOC ---
History of Present Illness HPI Comments 79Y F with PMHx DM, CHF, HTN, HLD, CVA, and hysterectomy presents to ED for chief complaint hyperglycemia x last night with nausea, weakness, fatigue, and abd pain. Pt denies diarrhea. Pt's son reports that sugars have been very high since last night and do not decrease with medication. No other symptoms rep orted. Chief Complaint: Hyperglycemia Time Seen by MD: 09:52 Primary Care Provider: MUKUND Reviewed Notes: Nurses Notes, Medications, Allergies Allergies: Coded Allergies: Acetaminophen (Verified Allergy, Unknown, 05/08/23) Codeine (Verified Allergy, Unknown, 08/19/24) Hydrocodone (Verified Allergy, Unknown, 05/08/23) Penicillins (Unverified Allergy, Unknown, 04/24/15) Uncoded Allergies: ADHESIVE TAPES (Allergy, Unknown, 05/08/23) SULFA (Allergy, Unknown, 05/08/23) Home Meds Active Scripts Cefdinir (Cefdinir) 300 Mg Cap, 300 MG PO BID for 7 Days, #14 CAP Prov:ADRIANA EVANS MD 11/19/24 Levofloxacin Hemihydrate (LEVOFLOXACIN) 250 Mg Tab, 250 MG PO DAILY for 5 Days, #5 TAB Prov:PATRIA QUIROZ MD 08/10/24 Losartan Potassium (Losartan Potassium) 50 Mg Tab, 50 MG PO DAILY, #30 TAB 3 Ref ills Prov:ROSAMARIA FLOYD 10/26/23 Insulin Glargine (Lantus) 100 Unit/Ml Inj, 25 UNITS SC QAM, #10 INJ Prov:JOSE DALEY MD 03/30/22 Reported Medications Metoprolol Tartrate (Lopressor) 25 Mg Tb 11/16/24 Divalproex Sodium (Divalproex Sodium Dr) 125 Mg Tab, 125 MG PO BID, TAB 04/10/24 Levothyroxine Sodium (Levothyroxine Sodium) 150 Mcg Tab, 1 TAB PO DAILY 01/07/24 Buspirone Hcl (Buspirone Hcl) 5 Mg Tab, 1 TAB PO BID 10/24/23 Insulin Lispro (Humalog Kwikpen) 100 Unit/Ml Inj, 5 UNITS SC TID BREAKFAST,LUNCH,DINNER 03/08/22 Amlodipine Besylate (Amlodipine Besylate) 10 Mg Tab, 1 TAB PO DAILY 03/08/22 Atorvastatin Calcium (ATORVASTATIN CALCIUM) 40 Mg Tab, 1 TAB PO DAILY 03/08/22 Furosemide (Furosemide) 40 Mg Tab, 1 TAB PO DAILY 03/08/22 Information Source: Patient, Relative (Child) Mode of Arrival: Wheelchair Severity: Mild Timing: Hours Duration: Since onset Prehospital treatment: None Past Medical History PAST MEDICAL HISTORY: CHF, CVA, DM, High Lipids, HTN, Thyroid, TIA Surgical History: Hysterectomy DISTRIBUTING CLERK History: No Pertinent DISTRIBUTING CLERK History Family History Family History: Reviewed,noncontributory to illness, Family hx of DM, Family hx of Cancer Social History Smoker: Non-Smoker Alcohol: Occasionally Drugs: Denies Drug Use Lives In: Home Constitutional: reports: fatigue, weakness; denies: chills, diaphoresis, fever, malaise, sweats, others EENTM: denies: blurred vision, double vision, ear bleeding, ear discharge, ear drainage, ear pain, ear ringing, eye pain, eye redness, hearing loss, mouth pain, mouth swelling, nasal discharge, nose bleeding, nose congestion, nose pain, photophobia, tearing, throat pain, throat swelling, voice changes, others Respiratory: denies: cough, hemoptysis, orthopnea, SOB at rest, shortness of breath, SOB with excertion, stridor, wheezing, others Cardiovascular: denies: chest pain, dizzy spells, diaphoresis, Dyspnea on exertion, edema, irregular heart beat, left arm pain, lightheadedness, palpitations, PND, syncope, others Gastrointestinal: reports: abdominal pain, nausea; denies: abdomen distended, blood streaked bowels, constipated, diarrhea, dysphagia, difficulty swallowing, hematemesis, melena, poor appetite, poor fluid intake, rectal bleeding, rectal pain, vomiting, others Genitourinary: denies: abnormal vagina bleeding, burning, dyspareunia, dysuria, flank pain, frequency, hematuria, incontinence, pain, , vagina discharge, urgency, others Neurological: denies: dizziness, fainting, headache, left sided numbness, left sided weakness, numbness, paresthesia, pre-existing deficit, right sided numbness, right sided weakness, seizure, speech problems, tingling, tremors, weakness, others Musculoskeletal: denies: back pain, gout, joint pain, joint swelling, muscle pain, muscle stiffness, neck pain, others Integumetry: denies: bruises, change in color, change in hair/nails, dryness, laceration, lesions, lumps, rash, wounds, others Allergic/Immunocompromised: denies: Difficulty Healing, Frequent Infections, Hives, Itching, others Hematologic/Lymphatic: denies: anemia, blood clots, easy bleeding, easy bruising, swollen glands, others Endocrine: denies: excessive hunger, excessive sweating, excessive thirst, excessive urination, flushing, intolerance to cold, intolerance to heat, unexplained weight gain, unexplained weight loss, others Psychiatric: denies: anxiety, bipolar disorder, depression, hopeless, panic disorder, schizophrenia, sleepless, suicidal, others All Other Systems: Reviewed and Negative Physical Exam General Appearance: Mild Distress HEENT: Normal ENT Inspection, Pharynx Normal, TMs Normal Neck: Full Range of Motion, Non-Tender, Normal, Normal Inspection Respiratory: Chest Non-Tender, Lungs Clear, No Accessory Muscle Use, No Respiratory Distress, Normal Breath Sounds Cardiovascular: No Edema, No Murmur, No Gallop, Normal Peripheral Pulses, Regular Rate/Rhythm Breast Exam: Deferred Gastrointestinal: Diffuse, Tenderness Genitalia: Deferred Pelvic: Deferred Rectal: Deferred Extremities: No calf tenderness, Normal capillary refill, Normal inspection, Normal range of motion, Non-tender Musculoskeletal : Apperance: Normal Neurologic: Alert, 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 Was a procedure done?: No EKG EKG : Pulse Rate (adult): 112 Block: LBBB Hypertrophy: LAE Comments sinus or ectopic atrial tachycardia probable left atrial enlargement LBBB Differential Dx Considerations may include: ucontrolled DM with hyperglycemia X-Ray, Labs, Meds, VS Vital Signs Date Time Temp Pulse Resp B/P (MAP) Pulse Ox O2 Delivery O2 Flow Rate FiO2 12/11/24 10:29 112 12/11/24 10:27 120 20 97 Room Air* 0 21 12/11/24 10:00 97.4 126 16 126/47 (73) 99 97.4 12/11/24 09:58 112 12/11/24 09:40 97.6 106 20 100/36 (57) 97 97.6 Lab Test 12/11/24 11:33 12/11/24 10:45 12/11/24 10:42 Range/Units Troponin I High Sensitivity Pending 18 </=34 ng/L White Blood Count 7.0 4.4-10.8 10^3/uL Red Blood Count 4.18 4.0-5.20 10^6/uL Hemoglobin 11.3 L 12.2-16.2 g/dL Hematocrit 36.5 36.0-46.0 % Mean Corpuscular Volume 87.3 80.0-100.0 fL Mean Corpuscular Hemoglobin 27.1 L 28.0-32.0 pg Mean Corpuscular Hemoglobin Concent 31.0 L 32.0-36.0 g/dL Red Cell Distribution Width 14.3 11.8-14.3 % Platelet Count 194 140-450 10^3/uL Mean Platelet Volume 9.2 6.9-10.8 fL Neutrophils (%) (Auto) 84.7 H 37.0-80.0 % Lymphocytes (%) (Auto) 9.9 L 10.0-50.0 % Monocytes (%) (Auto) 5.3 0.0-12.0 % Eosinophils (%) (Auto) 0.0 0.0-7.0 % Basophils (%) (Auto) 0.1 0.0-2.0 % Neutrophils # (Auto) 6.0 1.6-8.6 10 ^3/uL Lymphocytes # (Auto) 0.7 0.4-5.4 10 ^3/uL Monocytes # (Auto) 0.4 0-1.3 10 ^3/uL Eosinophils # (Auto) 0 0-0.8 10 ^3/uL Basophils # (Auto) 0 0-0.2 10 ^3/uL Nucleated Red Blood Cells 0.1 % Prothrombin Time 10.9 9.3-11.8 sec Prothrombin Time INR 1.03 0.9-1.15 Activated Partial Thromboplast Time 26.2 24.5-34.5 SEC Sodium Level 130 L 136-145 mmol/L Potassium Level 4.6 3.5-5.1 mmol/L Chloride Level 96 L 98-107 mmol/L Carbon Dioxide Level 12 L 20-31 mmol/L Anion Gap 22 H 5-15 Blood Urea Nitrogen 31 H 9-23 mg/dL Creatinine 2.16 H 0.550-1.02 mg/dL Glomerular Filtration Rate Calc 22 >90 mL/min BUN/Creatinine Ratio 14.4 10.0-20.0 Serum Glucose 693 *H 74-106 mg/dL Calcium Level 9.9 8.7-10.4 mg/dL Magnesium Level 2.2 1.6-2.6 mg/dL Total Bilirubin 0.7 0.2-1.0 mg/dL Aspartate Amino Transferase (AST) 14 13-40 U/L Alanine Aminotransferase (ALT) 11 7-40 U/L Alkaline Phosphatase 120 H 46-116 U/L B-Type Natriuretic Peptide 311.54 0-100 pg/mL Total Protein 7.6 5.7-8.2 g/dL Albumin 4.3 3.2-4.8 g/dL Beta-Hydroxybutyric Acid > 4.500 H < 0.4 mmol/L Blood Gas Specimen Type Arterial Blood Gas Sample Site Left radial Blood Gas Patient Temperature 37.0 Arterial Blood Date Drawn [id number] Arterial Blood pH 7.270 L 7.350-7.450 Arterial Blood Partial Pressure CO2 23.6 L 32.0-45.0 mmHg Arterial Blood Partial Pressure O2 86.0 83.0-108.0 mmHg Arterial Blood HCO3 10.6 L 21.0-28.0 mmol/L Arterial Blood Oxygen Saturation 95.3 94.0-98.0 % Arterial Blood Base Excess -14.5 L -2.0-3.0 mmol/L Arterial Blood Oxyhemoglobin 94.3 94.0-98.0 % Arterial Blood Carboxyhemoglobin 0.6 0.5-1.5 % Arterial Blood Methemoglobin 0.4 0.0-1.5 % Hesham Test Yes Blood Gas Total Hemoglobin 12.10 12.0-16.0 g/dL Blood Gas Modality Room air FiO2 % 21.0 Current Medications Medications (Trade) Dose Ordered Sig/Reza Route Start Time Stop Time Status Last Admin Metoclopramide HCl (Reglan Injection) 10 mg ONCE ONCE IV 12/11/24 10:30 12/11/24 10:37 DC 12/11/24 11:06 Sodium Chloride 1,000 ml @ 1,000 mls/hr Q1H ONCE IV 12/11/24 10:30 12/11/24 11:29 DC 12/11/24 10:46 Ondansetron HCl (Zofran) 4 mg ONCE ONCE IV 12/11/24 10:30 12/11/24 10:37 DC 12/11/24 11:[address] [address] Ph: [phone] DIAGNOSTIC IMAGING Diagnostic Imaging Report : [id number] Signed PATIENT: ALLAN SWANSON ACCT: [id number] UNIT: [id number] : 1945 LOC: ER ROOM / BED: / AGE / SEX: 79 / F ADM STATUS: REG ER SERVICE 1029 ORDERING PHYSICIAN: KATHARINA TATE MD PROCEDURE(s): CXRP - CHEST PORTABLE REASON: cough ORDER NUMBER(s): [id number], ACCESSION NUMBER(s): [id number] INDICATION: Pain TECHNIQUE: Frontal view of the chest. COMPARISON: None FINDINGS: . The heart and mediastinal contours are grossly unremarkable. There is no evidence of pleural disease. The lungs are clear. The bony structures of the chest are intact without fracture. IMPRESSION: 1. No evidence of acute disease. ATED BY: EMILI BLUM MD DICTATED DATE/TIME: 12/11/24 1131 SIGNED BY: EMILI BLUM MD SIGNED DATE/TIME: 12/11/24 1131 CC: Time of 1ST Reevaluation: 10:22 Reevaluation 1ST: Unchanged Patient Education/Counseling: Diagnosis, Treatment Family Education/Counseling: Diagnosis, Treatment Departure 1 Departure Time of Disposition: 12:07 Impression: Primary Impression: DKA (diabetic ketoacidosis) Additional Impression: Altered mental status Disposition: ADMITTED INPATIENT Admit to: ICU Condition: Critical Critical Care Note Critical Care Time?: Yes (35 min-critical care time only) Stability Stability form required: No Heart Score Heart Score: Heart Score Response (Comments) Value History N/A 0 EKG N/A 0 Age N/A 0 Risk Factors N/A 0 Troponin N/A 0 Total 0 I personally scribed for KATHARINA TATE MD ([facility]) on 12/11/24 at 10:26. Electronically submitted by Opal Collier ([facility]). I personally scribed for KATHARINA TATE MD ([facility]) on 12/11/24 at 10:29. Electronically submitted by Opal Collier ([facility]). I personally scribed for KATHARINA TATE MD ([facility]) on 12/11/24 at 12:01. Electronically submitted by Opal Collier ([facility]). KATHARINA TATE MD Dec 11, 2024 10:26
[2024-12-11] MEDS: SODIUM CHLORIDE 0.9% 1,000 ML IV ONE (10:46)
[2024-12-11 10:59] LABS: Base Excess -14.5 mmol/L (-2.0-3.0)
[2024-12-11 10:59] LABS: Basophils # (auto) 0 10 ^3/uL (0-0.2); Basophils % (auto) 0.1 % (0.0-2.0); Eosinophils # (auto) 0 10 ^3/uL (0-0.8); Hematocrit 36.5 % (36.0-46.0); Hemoglobin 11.3 g/dL (12.2-16.2); Lymphocytes # (auto) 0.7 10 ^3/uL (0.4-5.4); Lymphocytes % (auto) 9.9 % (10.0-50.0); Mean Corpuscular Hemoglobin 27.1 pg (28.0-32.0); Mean Corpuscular Volume 87.3 fL (80.0-100.0); Monocytes # (auto) 0.4 10 ^3/uL (0-1.3); Monocytes % (auto) 5.3 % (0.0-12.0); Neutrophils % (auto) 84.7 % (37.0-80.0); Nucleated Red Blood Cells % 0.1 %; Platelet Count (auto) 194 10^3/uL (140-450); Red Blood Cells 4.18 10^6/uL (4.0-5.20); Red Cell Distribution Width 14.3 % (11.8-14.3)
[2024-12-11] MEDS: METOCLOPRAMIDE HCL 5MG/ml INJ 2ml VIAL IV ONE (11:06)
[2024-12-11] MEDS: ONDANSETRON HCL 4 MG/2 ML VIAL IV ONE (11:07)
[2024-12-11 11:13] LABS: Alanine Aminotransferase 11 U/L (7-40); Albumin 4.3 g/dL (3.2-4.8); Anion Gap 22 (5-15); Aspartate Aminotransferase 14 U/L (13-40); BUN/Creatinine Ratio 14.4 (10.0-20.0); Bilirubin, Total 0.7 mg/dL (0.2-1.0); Calcium 9.9 mg/dL (8.7-10.4); INR 1.03 (0.9-1.15); Magnesium 2.2 mg/dL (1.6-2.6); Partial Thromboplastin Time 26.2 SEC (24.5-34.5); Potassium 4.6 mmol/L (3.5-5.1); Prothrombin Time 10.9 sec (9.3-11.8); Total Protein 7.6 g/dL (5.7-8.2)
[2024-12-11 11:14] LABS: Alkaline Phosphatase 120 U/L (46-116); Blood Urea Nitrogen 31 mg/dL (9-23); Carbon Dioxide 12 mmol/L (20-31); Chloride 96 mmol/L (98-107); Sodium 130 mmol/L (136-145)
[2024-12-11 11:21] LABS: Glucose 693 mg/dL (74-106)
--- NOTE | 2024-12-11 11:53 | DVH ---
INDICATION: Pain TECHNIQUE: Frontal view of the chest. COMPARISON: None FINDINGS: . The heart and mediastinal contours are grossly unremarkable. There is no evidence of pleural dise ase. The lungs are clear. The bony structures of the chest are intact without fracture. IMPRESSION: 1. No evidence of acute disease.
[2024-12-11] MEDS: InsuLIN REG 1unit/0.01ml Soln (100units/ml) IV ONE (12:17)
[2024-12-11] MEDS: SODIUM CHLORIDE 0.9% 3,000 ML IV ONE (12:18)
[2024-12-11 12:44] LABS: Urine Bacteria None Seen /hpf (None Seen)
[2024-12-11 12:52] LABS: Urine Blood TRACE /uL (Negative); Urine Clarity Clear (Clear); Urine Color Light-Yellow (Yellow); Urine Hyaline Cast FEW /lpf (0 - 2); Urine Protein, UAD Negative (Negative); Urine Specific Gravity 1.012 (1.001-1.035); Urine Squamous Epithelial Cell FEW /hpf (<5); Urine Urobilinogen Normal (Negative); Urine WBC 2 /HPF (0-5)
[2024-12-11] MEDS ORDERED: HYDROcodone-ACET 5/325MG TAB PO PRN (15:30)
[2024-12-11] MEDS: ACCU-CHEK COMFORT CURVE STRIP VI SCH (16:07)
[2024-12-11] MEDS: INSULIN LANTUS (GLARGINE) 1 /0.01ml (100units/ml) SC SCH (16:14)
[2024-12-11] MEDS: InsuLIN REG 1unit/0.01ml Soln (100units/ml) SC SCH (16:15)
[2024-12-11] MEDS: SODIUM CHLORIDE 0.9% 1,000 ML IV SCH (16:18)
[2024-12-11 16:39] LABS: Basophils # (auto) 0 10 ^3/uL (0-0.2); Basophils % (auto) 0.1 % (0.0-2.0); Eosinophils # (auto) 0 10 ^3/uL (0-0.8); Hematocrit 32.9 % (36.0-46.0); Hemoglobin 10.6 g/dL (12.2-16.2); Lymphocytes # (auto) 0.6 10 ^3/uL (0.4-5.4); Lymphocytes % (auto) 8.5 % (10.0-50.0); Mean Corpuscular Hemoglobin 26.4 pg (28.0-32.0); Mean Corpuscular Hgb Conc. 32.3 g/dL (32.0-36.0); Mean Corpuscular Volume 81.7 fL (80.0-100.0); Monocytes # (auto) 0.5 10 ^3/uL (0-1.3); Monocytes % (auto) 8.4 % (0.0-12.0); Neutrophils # (auto) 5.4 10 ^3/uL (1.6-8.6); Platelet Count (auto) 170 10^3/uL (140-450); Red Blood Cells 4.02 10^6/uL (4.0-5.20); Red Cell Distribution Width 13.3 % (11.8-14.3); White Blood Cell 6.6 10^3/uL (4.4-10.8)
[2024-12-11 16:57] LABS: Triglycerides 83 mg/dL (< 150)
[2024-12-11 16:58] LABS: LDL Cholesterol 35 mg/dL (< 100)
[2024-12-11 16:59] LABS: Cholesterol 72 mg/dL (< 200)
[2024-12-11 17:02] LABS: HDL Cholesterol 22 mg/dL (40-59)
[2024-12-11 17:07] LABS: Alanine Aminotransferase 10 U/L (7-40); Alkaline Phosphatase 107 U/L (46-116); Anion Gap 15 (5-15); BUN/Creatinine Ratio 19.4 (10.0-20.0); Bilirubin, Total 0.5 mg/dL (0.2-1.0); Calcium 9.2 mg/dL (8.7-10.4); Chloride 105 mmol/L (98-107); Potassium 3.7 mmol/L (3.5-5.1); Sodium 138 mmol/L (136-145); Total Protein 7.1 g/dL (5.7-8.2)
[2024-12-11 17:08] LABS: Aspartate Aminotransferase 10 U/L (13-40); Blood Urea Nitrogen 32 mg/dL (9-23); Carbon Dioxide 18 mmol/L (20-31); Glucose 346 mg/dL (74-106)
--- NOTE | 2024-12-11 19:35 | ECG ---
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
[2024-12-11 19:58] LABS: Amphetamine Screen, Urine Neg (NEGATIVE); Barbiturate Scree,Urine Neg (NEGATIVE); Benzodiazephine Screen, Urine Neg (NEGATIVE); Cannabinoid Screen, Urine Neg (NEGATIVE); Cocaine Screen, Urine Neg (NEGATIVE); Opiate Scree,Urine Neg (NEGATIVE); Phencyclidine Screen, Urine Neg (NEGATIVE)
--- NOTE | 2024-12-11 20:51 | DVHHPRES ---
History of Present Illness Resident Creating Document: NERY DAVIS RESIDENT Reason for Visit: DKA History of Present Illness 79-year-old female with a history of type 2 diabetes mellitus, CHF, HTN, HLD, CVA, dementia, and s/p hysterectomy, who presented to the ED with recurrence of symptoms similar to her prior DKA admission earlier this month (11/18/24), including nausea, vomiting, weakness, and poor oral intake. Her son reports persistently high blood sugars despite insulin administration. On arrival, glucose was 693 mg/dL, AG 22 (now closed), ketonemia, and currently glucose has improved to 327 mg/dL. She was given 20u IV insulin in the ED; 20u SQ and initiated IV fluids. UA was normal. CBC showed mild normocytic anemia. Creatinine 2.16. Patient denies diarrhea or chest pain. No current fevers or signs of infection. PMHx: Type 2 diabetes mellitus Congestive heart failure Hypertension Hyperlipidemia Cerebrovascular accident Dementia S/p hysterectomy Medications: Home meds include insulin glargine, Humalog, losartan, metoprolol, amlodipine, atorvastatin, levothyroxine, buspirone, divalproex. Recent antibiotics: cefdinir and levofloxacin. Allergies: Acetaminophen, Codeine, Hydrocodone, Penicillins, Sulfa, Adhesive tapes Social History: Lives at home with assistance from son; no smoking, alcohol, or drug use reported. Review of Systems: Negative for chest pain, diarrhea, or dysuria. Positive for nausea, weakness, and fatigue. Review of Systems Allergies: Coded Allergies: Acetaminophen (Verified Allergy, Unknown, 05/08/23) Codeine (Verified Allergy, Unknown, 08/19/24) Hydrocodone (Verified Allergy, Unknown, 05/08/23) Penicillins (Unverified Allergy, Unknown, 04/24/15) Uncoded Allergies: ADHESIVE TAPES (Allergy, Unknown, 05/08/23) SULFA (Allergy, Unknown, 05/08/23) Medications Current Medications Medications Dose Ordered Sig/Reza Route Start Time Stop Time Status Last Admin Dose Admin Sodium Chloride 1,000 ml @ 100 mls/hr Q10H IV 12/11/24 15:30 12/11/24 16:18 100 MLS/HR Enoxaparin Sodium 30 mg DAILY SC 12/12/24 10:00 Insulin Glargine 20 units DAILY@1000 SC 12/11/24 15:45 12/11/24 16:14 20 UNITS Diagnostic Test (Pha) 1 strip IQ4HR 12/11/24 16:00 12/11/24 20:00 1 STRIP Insulin Human Regular IQ4HR SC 12/11/24 16:00 12/11/24 16:15 12 UNITS Dextrose 50 ml UD PRN IV 12/11/24 15:45 Exam Vital Signs Vital Signs Date Time Temp Pulse Resp B/P (MAP) Pulse Ox O2 Delivery O2 Flow Rate FiO2 12/11/24 18:00 97.6 86 19 130/52 (78) 98 97.6 12/11/24 10:27 Room Air* 0 21 Exam Physical Exam: General: Elderly woman, frail, alert but fatigued HEENT: Dry mucous membranes CV: RRR, no murmurs, JVP not elevated Resp: Lungs clear to auscultation bilaterally GI: Soft, mild diffuse tenderness, no rebound or guarding Neuro: Baseline dementia, no focal deficits on exam Skin: No rashes, no evidence of infection at injection sites Extremities: No edema Labs/Xrays Labs Test 12/11/24 16:07 12/11/24 15:54 12/11/24 12:38 12/11/24 11:33 Range/Units POC Glucose 327 H 70-106 mg/dl White Blood Count 6.6 4.4-10.8 10^3/uL Red Blood Count 4.02 4.0-5.20 10^6/uL Hemoglobin 10.6 L 12.2-16.2 g/dL Hematocrit 32.9 L 36.0-46.0 % Mean Corpuscular Volume 81.7 # 80.0-100.0 fL Mean Corpuscular Hemoglobin 26.4 L 28.0-32.0 pg Mean Corpuscular Hemoglobin Concent 32.3 32.0-36.0 g/dL Red Cell Distribution Width 13.3 11.8-14.3 % Platelet Count 170 140-450 10^3/uL Mean Platelet Volume 8.8 6.9-10.8 fL Neutrophils (%) (Auto) 83.0 H 37.0-80.0 % Lymphocytes (%) (Auto) 8.5 L 10.0-50.0 % Monocytes (%) (Auto) 8.4 0.0-12.0 % Eosinophils (%) (Auto) 0.0 0.0-7.0 % Basophils (%) (Auto) 0.1 0.0-2.0 % Neutrophils # (Auto) 5.4 1.6-8.6 10 ^3/uL Lymphocytes # (Auto) 0.6 0.4-5.4 10 ^3/uL Monocytes # (Auto) 0.5 0-1.3 10 ^3/uL Eosinophils # (Auto) 0 0-0.8 10 ^3/uL Basophils # (Auto) 0 0-0.2 10 ^3/uL Nucleated Red Blood Cells 0.0 % Sodium Level 138 # 136-145 mmol/L Potassium Level 3.7 3.5-5.1 mmol/L Chloride Level 105 98-107 mmol/L Carbon Dioxide Level 18 L 20-31 mmol/L Anion Gap 15 5-15 Blood Urea Nitrogen 32 H 9-23 mg/dL Creatinine 1.65 H 0.550-1.02 mg/dL Glomerular Filtration Rate Calc 31 >90 mL/min BUN/Creatinine Ratio 19.4 10.0-20.0 Serum Glucose 346 H 74-106 mg/dL Serum Osmolality 318 H 278-298 mOsm/kg Calcium Level 9.2 8.7-10.4 mg/dL Total Bilirubin 0.5 0.2-1.0 mg/dL Aspartate Amino Transferase (AST) 10 L 13-40 U/L Alanine Aminotransferase (ALT) 10 7-40 U/L Alkaline Phosphatase 107 46-116 U/L C-Reactive Protein High Sensitivity 0.61 <1.0 mg/dL Total Protein 7.1 5.7-8.2 g/dL Albumin 4.0 3.2-4.8 g/dL Triglycerides Level 83 < 150 mg/dL Cholesterol Level 72 < 200 mg/dL LDL Cholesterol 35 < 100 mg/dL HDL Cholesterol 22 L 40-59 mg/dL Urine Color Light-yellow Yellow Urine Clarity Clear Clear Urine pH 5.0 5.0-9.0 Urine Specific [place] 1.012 1.001-1.035 Urine Protein Negative Negative Urine Ketones 2+ H Negative Urine Blood Trace H Negative /uL Urine Nitrite Negative Negative Urine Bilirubin Negative Negative Urine Urobilinogen Normal Negative mg/dL Urine Leukocyte Esterase Negative Negative /uL Urine RBC 1 0 - 4 /hpf Urine Microscopic WBC 2 0-5 /HPF Urine Squamous Epithelial Cells Few <5 /hpf Urine Bacteria None seen None Seen /hpf Urine Hyaline Casts Few 0 - 2 /lpf Urine Glucose 4+ H Normal mg/dL Urine Opiates Screen Neg NEGATIVE Urine Fentanyl Screen Neg NEGATIVE Urine Barbiturates Screen Neg NEGATIVE Urine Phencyclidine Screen Neg NEGATIVE Urine Amphetamines Screen Neg NEGATIVE Urine Benzodiazepines Screen Neg NEGATIVE Urine Cocaine Screen Neg NEGATIVE Urine Cannabinoids Screen Neg NEGATIVE Troponin I High Sensitivity 17 </=34 ng/L Test 12/11/24 10:45 12/11/24 10:42 Range/Units Prothrombin Time 10.9 9.3-11.8 sec Prothrombin Time INR 1.03 0.9-1.15 Activated Partial Thromboplast Time 26.2 24.5-34.5 SEC Magnesium Level 2.2 1.6-2.6 mg/dL B-Type Natriuretic Peptide 311.54 0-100 pg/mL Beta-Hydroxybutyric Acid > 4.500 H < 0.4 mmol/L Blood Gas Specimen Type Arterial Blood Gas Sample Site Left radial Blood Gas Patient Temperature 37.0 Arterial Blood Date Drawn [id number] Arterial Blood pH 7.270 L 7.350-7.450 Arterial Blood Partial Pressure CO2 23.6 L 32.0-45.0 mmHg Arterial Blood Partial Pressure O2 86.0 83.0-108.0 mmHg Arterial Blood HCO3 10.6 L 21.0-28.0 mmol/L Arterial Blood Oxygen Saturation 95.3 94.0-98.0 % Arterial Blood Base Excess -14.5 L -2.0-3.0 mmol/L Arterial Blood Oxyhemoglobin 94.3 94.0-98.0 % Arterial Blood Carboxyhemoglobin 0.6 0.5-1.5 % Arterial Blood Methemoglobin 0.4 0.0-1.5 % Hesham Test Yes Blood Gas Total Hemoglobin 12.10 12.0-16.0 g/dL Blood Gas Modality Room air FiO2 % 21.0 Assessment/Plan Assessment/Plan Labs: CBC: Hgb 10.6-11.3 g/dL (low) Hct 32.9-36.5% WBC 6.6-7.0 Platelets 170-194 BMP: Glucose 693 mg/dL on arrival, now 327 Anion gap 22 (now closed) BUN/Cr 31/2.16 Na 130, K 4.6, CO2 12 (low), Cl 96 AG metabolic acidosis with partially compensated respiratory alkalosis ABG: pH 7.27, pCO2 23.6, HCO3 10.6, BE -14.5 Mild metabolic acidosis with respiratory compensation Assessment/Plan: #DKA (resolved) / Hyperglycemia #Uncontrolled DM type 2 Previously admitted for DKA earlier this month. Recurrent episode now resolving. AG has closed, now on SQ insulin, IV fluids continued. Monitor glucose q4h, continue ISS . Monitor for any signs of ongoing ketosis. #Acute Kidney Injury vasomotor mediated Cr 2.16,. Likely pre-renal due to dehydration and poor PO intake. Continue IV hydration monitor UOP #Chronic HFpEF Monitor volume status closely while rehydrating. #Dementia At baseline per family. #Electrolyte abnormalities #Hyponatremia (130), #low bicarbonate (12). Monitor CMP daily. #Mild normocytic anemia Chronic Monitor trends. No signs of bleeding. # UTI resolved Was recently on cefdinir and levofloxacin. No signs of infection now. No leukocytosis or fever. DVT prophylaxis: levonox 40 mg SC Protonix IV due to NPO Swallow evaluation Case discussed with Dr Mora Plan discussed with: Patient, Other (rn) My Orders Orders - NERY DAVIS Procedure Category Date Status Time Admit ADMIT 12/11/24 Transmitted 15: Code Status CODE 12/11/24 Transmitted 15: Vital Signs [facility] 12/11/24 In Process 15: Review Orders With [facility] 12/11/24 In Process Adm. 15: Npo (Nothing By DIET 12/11/24 Transmitted Mouth) Diet Dinner Sodium Chloride 0.9% PHA 12/11/24 In Process 15:30 Notify Of Changes [facility] 12/11/24 In Process From Base 15:29 Advance Directive [facility] 12/11/24 In Process 15:29 Echo 2d Mode Cardiac US 12/11/24 Logged DOP 15: Gram Stain ZAYDA 12/11/24 In Process 15:29 Urine Bacterial ZAYDA 12/11/24 In Process Culture 15:29 Patient Condition ORDERS 12/11/24 Transmitted 15:29 Allergies MICHELLE 12/11/24 In Process 15: Oxygen By Nasal RT 12/11/24 Transmitted Cannula 15:29 Notify Of Changes [facility] 12/11/24 In Process From Base 15:29 Superintendent Renting Managing For [facility] 12/11/24 In Process 24 Hours 15:29 Emergency Dysrhythmia [facility] 12/11/24 In Process Protocol 15:29 Rhythm Strips Once MICHELLE 12/11/24 In Process Every Shift 15:29 Stat Ekg For Chest MICHELLE 12/11/24 In Process Pain 15:29 Insulin Lantus PHA 12/11/24 In Process (Glargine) (Lantus) 15:45 Glucose Blood PHA 12/11/24 In Process (Accu-Chek Comfort 16:00 Insulin R (Human) PHA 12/11/24 In Process (Insulin R) 16:00 Dextrose 50% Syringe PHA 12/11/24 In Process 15:45 Enoxaparin Sodium PHA 12/12/24 In Process (Lovenox) 10:00 Date of Service: Dec 11, 2024 Billing Provider: JUJU MORA MD Common Visit Codes: [id number] INP/OBS CARE (HIGH) Secondary Visit Codes: [id number] CARE PLAN 30 MINUTES NERY DAVIS RESIDENT Dec 11, 2024 20:51 JUJU MORA MD Dec 13, 2024 09:02
[2024-12-12] VITALS (9 sets, daily range): BP systolic 135–154; BP diastolic 55–76; PULSE 69–84; RESP 16–19; TEMP 36.7; O2SAT 92–96
[2024-12-12] MEDS: DEXTROSE (50%) 50ML SYRG IV PRN (05:14)
[2024-12-12 06:38] LABS: Basophils # (auto) 0 10 ^3/uL (0-0.2); Basophils % (auto) 0.1 % (0.0-2.0); Eosinophils # (auto) 0 10 ^3/uL (0-0.8); Hemoglobin 10.5 g/dL (12.2-16.2); Monocytes # (auto) 0.6 10 ^3/uL (0-1.3); Neutrophils # (auto) 4.1 10 ^3/uL (1.6-8.6); Neutrophils % (auto) 71.8 % (37.0-80.0); Nucleated Red Blood Cells % 0.1 %
[2024-12-12 06:40] LABS: Eosinophils % (auto) 0.3 % (0.0-7.0); Hematocrit 30.9 % (36.0-46.0); Mean Corpuscular Hemoglobin 27.3 pg (28.0-32.0); Mean Corpuscular Hgb Conc. 34.1 g/dL (32.0-36.0); Monocytes % (auto) 9.8 % (0.0-12.0); Platelet Count (auto) 163 10^3/uL (140-450); Red Blood Cells 3.86 10^6/uL (4.0-5.20); White Blood Cell 5.8 10^3/uL (4.4-10.8)
[2024-12-12 07:12] LABS: Alanine Aminotransferase 10 U/L (7-40); Albumin 3.9 g/dL (3.2-4.8); Alkaline Phosphatase 88 U/L (46-116); Anion Gap 8 (5-15); BUN/Creatinine Ratio 20.8 (10.0-20.0); Bilirubin, Total 0.4 mg/dL (0.2-1.0); Calcium 9.2 mg/dL (8.7-10.4); Carbon Dioxide 25 mmol/L (20-31); Magnesium 2.1 mg/dL (1.6-2.6); Phosphorus 3.2 mg/dL (2.4-5.1); Sodium 142 mmol/L (136-145); Total Protein 6.7 g/dL (5.7-8.2)
[2024-12-12 07:13] LABS: Aspartate Aminotransferase 12 U/L (13-40); Blood Urea Nitrogen 25 mg/dL (9-23); Chloride 109 mmol/L (98-107); Glucose 177 mg/dL (74-106); Potassium 3.3 mmol/L (3.5-5.1)
[2024-12-12] MEDS: PANTOPRAZOLE 40 MG/10 ML VIAL INJ IV SCH (09:14)
[2024-12-12] MEDS: ENOXAPARIN SOD 30 MG/0.3 ML SYRINGE SC SCH (09:14)
[2024-12-12] MEDS: POTASSIUM CHLORIDE 60 MEQ, LIDOCAINE 1% (LOCAL ANESTH.) 6 ML in SODIUM CHL 0.9% 500 ML IV ONE (12:07)
--- NOTE | 2024-12-12 16:03 | DVHDSRES ---
Discharge Summary Date of Admission Resident Creating Document: NERY DAVIS RESIDENT Dec 11, 2024 at 15:29 Date of Discharge: Dec 12, 2024 Admitting Diagnosis DKA Labs/Diagnostic Data: Laboratory Results Test 12/12/24 11:58 12/12/24 06:14 12/11/24 15:54 12/11/24 12:38 POC Glucose 120 mg/dl (70-106) White Blood Count 5.8 10^3/uL (4.4-10.8) Red Blood Count 3.86 10^6/uL (4.0-5.20) Hemoglobin 10.5 g/dL (12.2-16.2) Hematocrit 30.9 % (36.0-46.0) Mean Corpuscular Volume 80.0 fL (80.0-100.0) Mean Corpuscular Hemoglobin 27.3 pg (28.0-32.0) Mean Corpuscular Hemoglobin Concent 34.1 g/dL (32.0-36.0) Red Cell Distribution Width 14.0 % (11.8-14.3) Platelet Count 163 10^3/uL (140-450) Mean Platelet Volume 8.4 fL (6.9-10.8) Neutrophils (%) (Auto) 71.8 % (37.0-80.0) Lymphocytes (%) (Auto) 18.0 % (10.0-50.0) Monocytes (%) (Auto) 9.8 % (0.0-12.0) Eosinophils (%) (Auto) 0.3 % (0.0-7.0) Basophils (%) (Auto) 0.1 % (0.0-2.0) Neutrophils # (Auto) 4.1 10 ^3/uL (1.6-8.6) Lymphocytes # (Auto) 1.0 10 ^3/uL (0.4-5.4) Monocytes # (Auto) 0.6 10 ^3/uL (0-1.3) Eosinophils # (Auto) 0 10 ^3/uL (0-0.8) Basophils # (Auto) 0 10 ^3/uL (0-0.2) Nucleated Red Blood Cells 0.1 % Sodium Level 142 mmol/L (136-145) Potassium Level 3.3 mmol/L (3.5-5.1) Chloride Level 109 mmol/L (98-107) Carbon Dioxide Level 25 mmol/L (20-31) Anion Gap 8 (5-15) Blood Urea Nitrogen 25 mg/dL (9-23) Creatinine 1.20 mg/dL (0.550-1.02) Glomerular Filtration Rate Calc 45 mL/min (>90) BUN/Creatinine Ratio 20.8 (10.0-20.0) Serum Glucose 177 mg/dL (74-106) Lactic Acid Level 1.0 mmol/L (0.4-2.0) Calcium Level 9.2 mg/dL (8.7-10.4) Phosphorus Level 3.2 mg/dL (2.4-5.1) Magnesium Level 2.1 mg/dL (1.6-2.6) Total Bilirubin 0.4 mg/dL (0.2-1.0) Aspartate Amino Transferase (AST) 12 U/L (13-40) Alanine Aminotransferase (ALT) 10 U/L (7-40) Alkaline Phosphatase 88 U/L (46-116) Total Protein 6.7 g/dL (5.7-8.2) Albumin 3.9 g/dL (3.2-4.8) Serum Osmolality 318 mOsm/kg (278-298) C-Reactive Protein High Sensitivity 0.61 mg/dL (<1.0) Triglycerides Level 83 mg/dL (< 150) Cholesterol Level 72 mg/dL (< 200) LDL Cholesterol 35 mg/dL (< 100) HDL Cholesterol 22 mg/dL (40-59) Urine Color Light-yellow (Yellow) Urine Clarity Clear (Clear) Urine pH 5.0 (5.0-9.0) Urine Specific [place] 1.012 (1.001-1.035) Urine Protein Negative (Negative) Urine Ketones 2+ (Negative) Urine Blood Trace /uL (Negative) Urine Nitrite Negative (Negative) Urine Bilirubin Negative (Negative) Urine Urobilinogen Normal mg/dL (Negative) Urine Leukocyte Esterase Negative /uL (Negative) Urine RBC 1 /hpf (0 - 4) Urine Microscopic WBC 2 /HPF (0-5) Urine Squamous Epithelial Cells Few /hpf (<5) Urine Bacteria None seen /hpf (None Seen) Urine Hyaline Casts Few /lpf (0 - 2) Urine Glucose 4+ mg/dL (Normal) Urine Opiates Screen Neg (NEGATIVE) Urine Fentanyl Screen Neg (NEGATIVE) Urine Barbiturates Screen Neg (NEGATIVE) Urine Phencyclidine Screen Neg (NEGATIVE) Urine Amphetamines Screen Neg (NEGATIVE) Urine Benzodiazepines Screen Neg (NEGATIVE) Urine Cocaine Screen Neg (NEGATIVE) Urine Cannabinoids Screen Neg (NEGATIVE) Test 12/11/24 11:33 12/11/24 10:45 12/11/24 10:42 Troponin I High Sensitivity 17 ng/L (</=34) Prothrombin Time 10.9 sec (9.3-11.8) Prothrombin Time INR 1.03 (0.9-1.15) Activated Partial Thromboplast Time 26.2 SEC (24.5-34.5) B-Type Natriuretic Peptide 311.54 pg/mL (0-100) Beta-Hydroxybutyric Acid > 4.500 mmol/L (< 0.4) Blood Gas Specimen Type Arterial Blood Gas Sample Site Left radial Blood Gas Patient Temperature 37.0 Arterial Blood Date Drawn [id number] Arterial Blood pH 7.270 (7.350-7.450) Arterial Blood Partial Pressure CO2 23.6 mmHg (32.0-45.0) Arterial Blood Partial Pressure O2 86.0 mmHg (83.0-108.0) Arterial Blood HCO3 10.6 mmol/L (21.0-28.0) Arterial Blood Oxygen Saturation 95.3 % (94.0-98.0) Arterial Blood Base Excess -14.5 mmol/L (-2.0-3.0) Arterial Blood Oxyhemoglobin 94.3 % (94.0-98.0) Arterial Blood Carboxyhemoglobin 0.6 % (0.5-1.5) Arterial Blood Methemoglobin 0.4 % (0.0-1.5) Hesham Test Yes Blood Gas Total Hemoglobin 12.10 g/dL (12.0-16.0) Blood Gas Modality Room air FiO2 % 21.0 Other Laboratory Tests 12/12/24 06:14 Brief Hx & Hospital Course: An 79-year-old female with a past medical history of type 1 diabetes mellitus, CHF, hypertension, hyperlipidemia, CVA, dementia, and s/p hysterectomy was admitted for DKA. She had a similar episode earlier this month. On arrival, glucose was 693 mg/dL with anion gap 22, ketonemia, and mild metabolic acidosis with partial respiratory compensation. She received IV insulin and fluids in the ED, with subsequent transition to SQ insulin as glucose improved to 327 mg/dL. She was evaluated for potential infectious source. UA, CRP and CBC were unremarkable, and she remained afebrile throughout hospitalization. No leukocytosis. She was recently on cefdinir and levofloxacin, which were discontinued. Blood cultures remained negative. Patient had episodes of hypoglycemia overnight but glucose levels are now stable. Electrolyte abnormalities were addressed, including correction of hypokalemia. Renal function showed mild MACARIO likely due to volume depletion, with creatinine peaking at 2.16 and improving with hydration. Medications: The patient is on insulin glargine (Lantus) 30 units every morning, with correction using sliding scale. Son reports 2 units typically required for correction. Home medications continued as prior. Discharge Disposition: Home Follow-Up: [facility] Home Health: Offered for medication management but declined by son. Patient is supported by son and his spouse who is a RN, who assist with medication administration. Instructions: Continue home insulin regimen and monitor for symptoms of hypo/hyperglycemia. Reinforce sick day rules. Continue CHF and dementia management as outpatient. No current infection. Encourage follow-up with back maker at [facility]. Case discussed with Dr Garza Operations or Procedures ORDERING PHYSICIAN: KATHARINA TATE MD PROCEDURE(s): CXRP - CHEST PORTABLE REASON: cough ORDER NUMBER(s): [id number], ACCESSION NUMBER(s): [id number] INDICATION: Pain TECHNIQUE: Frontal view of the chest. COMPARISON: None FINDINGS: . The heart and mediastinal contours are grossly unremarkable. There is no evidence of pleural disease. The lungs are clear. The bony structures of the chest are intact without fracture. IMPRESSION: 1. No evidence of acute disease. Condition at Discharge: Stable Final Diagnosis/Problems List #DKA (resolved) / Hyperglycemia #Uncontrolled DM type 1 #Acute Kidney Injury vasomotor mediated resolved #Chronic HFpEF #Dementia #Electrolyte abnormalities #Hyponatremia (130), #low bicarbonate (12). #Hypokalemia #Mild normocytic anemia Chronic # UTI resolved Discharge Disposition: Home Discharge Instruct/Medications Diet: Consistent carbohydrate, Cardiac 2g Na,low cholest Activity: Light activity Follow Up/Referral: de clinic 7 days Medications: see prescription Discharge Statement: "Patient was advised to return to the ER or call 911 if any headaches, dizziness, shortness of breath, chest pain, abdominal pain, bleeding, fevers, or worsening of medical condition. Patient was counseled about treatment plan, medications, possible side effects, patientverbalized understanding. All questions were answered to the best of my ability. This discharge took greater then 30 minutes in planning, reviewing documentation, counseling the patient, and discussing with other team members." ASSESSMENT ASSESSMENT Assessment DKA Date of Service: Dec 12, 2024 Billing Provider: LEBRON GARZA MD Common Visit Codes: 16932-YBJ/OBS DISCH DAY >30min NERY DAVIS RESIDENT Dec 12, 2024 16:03 LEBRON GARZA MD Dec 12, 2024 22:31
[2024-12-12] MEDS: MORPHINE SULFATE INJ 2 MG/ml SYRG IV ONE (18:23)
[2024-12-12] MEDS ORDERED: INSULIN LANTUS (GLARGINE) 1 /0.01ml (100units/ml) SC SCH (22:00)
--- NOTE | 2024-12-13 02:07 | DVHSR ---
APPROVED REPORT EXAM: Two-dimensional and M-mode echocardiogram with Doppler and color Doppler. Blood Pressure: 154/76 mmHg INDICATION R/O CHF RISK FACTORS Height: 5'0", Weight: 108 DIMENSIONS LVDd3.0 (3.8-5.7cm)LA (2D)3.8 (1.9-4.0cm)Aortic Root3.2 (2.0-3.7cm) LVDs2.2 (2.5-4.0cm)LA (MM) (1.9-4.0cm)Aortic Cusp Exc1.6 (1.5-2.0cm) EF (%) 55.0 (55-70%)Rt. Atrium4.4 (1.9-4.0cm)Asc. Aorta cm IVSd1.4 (0.7-1.1cm)RV (D) (1.8-2.4cm) PWd1.4 (0.7-1.1cm) Mitral Valve MitralMitral Stenosis E wave1.06m/sMV Mean GR.3mmHg A wave1.31m/sMV Peak GR.7mmHg E/A ratio0.82D MVAcm2 DECEL [id number] 1/2 [id number] IVRTmsDop MVA2.03cm2 Aortic Valve Aortic ValveAortic Stenosis V11.29m/Abiodun Mean GR.5mmHg V21.61m/Abiodun Peak GR.10mmHg LVOT Diameter1.7 (1.8-2.4cm)Doppler AVA1.82cm2 Pulmonic Valve V21.01m/s Tricuspid Valve TR Velocity3.24m/s [id number] Other Information Technically limited study due to body habitus, patient lying flat. Conclusion LV EF IS 65% MODERATE DEGREE LVH AND MODERATE DEGREE LV DIASTOLIC DYSFUNCTION MODERATE DEGREE AORTIC STENOSIS AORTIC VALVE AREA IS 1.5 CMSQUARE POSTERIOR MV CALCIFIED MODERATE DEGREE MR MODERATE DEGREE PULMONARY HYPERTENSION RVSP IS 57 MM OF HG AND IS VERY HIGH
== END 2024-12-12 21:40 | disposition home or self-care (01) | DRG 637 ==
LOC: ER 09:45 → OVERFLOW 15:29 → TELE-WESTW 12-12 02:23
PROVIDERS: ADMIT Internal Medicine; ATTEND Internal Medicine
DX: E10.10 Type 1 diabetes mellitus with ketoacidosis without coma (principal); N17.0 Acute kidney failure with tubular necrosis; I50.32 Chronic diastolic (congestive) heart failure; E87.1 Hypo-osmolality and hyponatremia; N39.0 Urinary tract infection, site not specified; E78.5 Hyperlipidemia, unspecified; D64.9 Anemia, unspecified; F03.90 Unspecified dementia, unspecified severity, without behavioral disturbance, psychotic disturbance, mood disturbance, and anxiety; E87.6 Hypokalemia; I11.0 Hypertensive heart disease with heart failure; Z86.73 Personal history of transient ischemic attack (TIA), and cerebral infarction without residual deficits; Z90.710 Acquired absence of both cervix and uterus; Z88.0 Allergy status to penicillin; Z88.5 Allergy status to narcotic agent; Z88.8 Allergy status to other drugs, medicaments and biological substances; Z79.4 Long term (current) use of insulin; Z79.899 Other long term (current) drug therapy
CPT/HCPCS: 36415; 36600; 71045; 80053; 80061; 80307; 81001; 82010; 82805; 82962; 83605; 83735; 83880; 83930; 84100; 84484; 85025; 85610; 85730; 86141; 87086; 87205; 93005; 93306; 96361; 96374; 96375; 99291; G0378; J1815; J2003; J2470

== ENCOUNTER 2025-07-09 18:35 | Emergency (ER) | payer MEDICARE, OTHER ==
[~2025-07-09] VITALS: Ht 154.9 cm; Wt 48.0 kg
[~2025-07-09 18:35] MED LIST changes: -CEFD300C2 PO; -LEVO250T58 PO
--- NOTE | 2025-07-09 19:49 | ED.PDOC ---
History of Present Illness HPI Comments 79 y/o F presents with c/c of generalized weakness. Patient endorses on feeling weak since this morning after having her blood pressure medication adjusted following recent PCP office visit at [facility], where her blood pressure and glucose levels were elevated then. She comments on not adjustments to her blood glucose medication being made, yet. Significant history of HTN, CHF and DM. Denial of any chest pain, shortness of breath, or further acute symptoms. Patient was mildly hypertensive on arrival. Chief Complaint: General Weakness Time Seen by MD: 19:40 Primary Care Provider: DUVAL Reviewed Notes: Nurses Notes, Medications, Allergies Allergies: Coded Allergies: Acetaminophen (Verified Allergy, Unknown, 05/08/23) Codeine (Verified Allergy, Unknown, 08/19/24) Hydrocodone (Verified Allergy, Unknown, 05/08/23) Penicillins (Unverified Allergy, Unknown, 04/24/15) Uncoded Allergies: ADHESIVE TAPES (Allergy, Unknown, 05/08/23) SULFA (Allergy, Unknown, 05/08/23) Home Meds Active Scripts Losartan Potassium (Losartan Potassium) 50 Mg Tab, 50 MG PO DAILY, #30 TAB 3 Refills Prov:ROSAMARIA FLOYD RESIDENT 10/26/23 Insulin Glargine (Lantus) 100 Unit/Ml Inj, 25 UNITS SC QAM, #10 INJ Prov:JOSE DALEY MD 03/30/22 Reported Medications Metoprolol Tartrate (Lopressor) 25 Mg Tb 11/16/24 Divalproex Sodium (Divalproex Sodium Dr) 125 Mg Tab, 125 MG PO BID, TAB 04/10/24 Levothyroxine Sodium (Levothyroxine Sodium) 150 Mcg Tab, 1 TAB PO DAILY 01/07/24 Buspirone Hcl (Buspirone Hcl) 5 Mg Tab, 1 TAB PO BID 10/24/23 Insulin Lispro (Humalog Kwikpen) 100 Unit/Ml Inj, 5 UNITS SC TID BREAKFAST,LUNCH,DINNER 03/08/22 Amlodipine Besylate (Amlodipine Besylate) 10 Mg Tab, 1 TAB PO DAILY 03/08/22 Atorvastatin Calcium (ATORVASTATIN CALCIUM) 40 Mg Tab, 1 TAB PO DAILY 03/08/22 Furosemide (Furosemide) 40 Mg Tab, 1 TAB PO DAILY 03/08/22 Information Source: Patient Mode of Arrival: Wheelchair Severity: Moderate Timing: Hours Duration: Since onset Prehospital treatment: None Past Medical History PAST MEDICAL HISTORY: CHF, CVA, DM, High Lipids, HTN, Thyroid, TIA Surgical History: Hysterectomy THEATRE PROFESSOR History: No Pertinent THEATRE PROFESSOR History Family History Family History: Reviewed,noncontributory to illness, Family hx of DM, Family hx of Cancer Social History Smoker: Non-Smoker Alcohol: Occasionally Drugs: Denies Drug Use Lives In: Home Constitutional: reports: fatigue, malaise, weakness; denies: chills, diaphoresis, fever, sweats, others EENTM: denies: blurred vision, double vision, ear bleeding, ear discharge, ear drainage, ear pain, ear ringing, eye pain, eye redness, hearing loss, mouth pain, mouth swelling, nasal discharge, nose bleeding, nose congestion, nose pain, photophobia, tearing, throat pain, throat swelling, voice changes, others Respiratory: denies: cough, hemoptysis, orthopnea, SOB at rest, shortness of breath, SOB with excertion, stridor, wheezing, others Cardiovascular: denies: chest pain, dizzy spells, diaphoresis, Dyspnea on exertion, edema, irregular heart beat, left arm pain, lightheadedness, palpitations, PND, syncope, others Gastrointestinal: denies: abdomen distended, abdominal pain, blood streaked bowels, constipated, diarrhea, dysphagia, difficulty swallowing, hematemesis, melena, nausea, poor appetite, poor fluid intake, rectal bleeding, rectal pain, vomiting, others Genitourinary: denies: abnormal vagina bleeding, burning, dyspareunia, dysuria, flank pain, frequency, hematuria, incontinence, pain, , vagina discharge, urgency, others Neurological: denies: dizziness, fainting, headache, left sided numbness, left sided weakness, numbness, paresthesia, pre-existing deficit, right sided numbness, right sided weakness, seizure, speech problems, tingling, tremors, weakness, others Musculoskeletal: denies: back pain, gout, joint pain, joint swelling, muscle pain, muscle stiffness, neck pain, others Integumetry: denies: bruises, change in color, change in hair/nails, dryness, laceration, lesions, lumps, rash, wounds, others Allergic/Immunocompromised: denies: Difficulty Healing, Frequent Infections, Hives, Itching, others Hematologic/Lymphatic: denies: anemia, blood clots, easy bleeding, easy bruising, swollen glands, others Endocrine: denies: excessive hunger, excessive sweating, excessive thirst, excessive urination, flushing, intolerance to cold, intolerance to heat, unexplained weight gain, unexplained weight loss, others Psychiatric: denies: anxiety, bipolar disorder, depression, hopeless, panic disorder, schizophrenia, sleepless, suicidal, others All Other Systems: Reviewed and Negative (Comprehensive systems review obtained and negative except for what is stated in the HPI.) Physical Exam General Appearance: Moderate Distress (Moderate distress due to weakness concerns.), Normal HEENT: Normal ENT Inspection, Pharynx Normal, TMs Normal Neck: Full Range of Motion, Non-Tender, Normal, Normal Inspection Respiratory: Chest Non-Tender, Lungs Clear, No Accessory Muscle Use, No Respiratory Distress, Normal Breath Sounds Cardiovascular: No Edema, No JVD, No Murmur, No Gallop, Normal Peripheral Pulses, Regular Rate/Rhythm Breast Exam: Deferred Gastrointestinal: No Organomegaly, Non Tender, No Pulsatile Mass, Normal Bowel Sounds, Soft Genitalia: Deferred Pelvic: Deferred Rectal: Deferred Extremities: No calf tenderness, Normal inspection Neurologic: Alert, Motor Weakness Cerebellar Function: NOT DONE Reflexes: NOT DONE Skin: Dry, Normal Color, Warm Lymphatic: No Adenopathy Was a procedure done? Was a procedure done?: No Differential Dx Considerations may include: hyperglycemia, hypertension, dehydration, electrolyte imbalance, acute CHF exacerbation, UTI, viral illness among others X-Ray, Labs, Meds, VS Vital Signs Date Time Temp Pulse Resp B/P (MAP) Pulse Ox O2 Delivery O2 Flow Rate FiO2 07/09/25 21:44 82 07/09/25 18:37 98.3 71 20 146/69 97 98.3 Lab Test 07/09/25 20:55 07/09/25 20:09 Range/Units Troponin I High Sensitivity 24 26 </=34 ng/L White Blood Count 4.1 L 4.4-10.8 10^3/uL Red Blood Count 4.39 4.0-5.20 10^6/uL Hemoglobin 11.5 L 12.2-16.2 g/dL Hematocrit 35.3 L 36.0-46.0 % Mean Corpuscular Volume 80.5 80.0-100.0 fL Mean Corpuscular Hemoglobin 26.2 L 28.0-32.0 pg Mean Corpuscular Hemoglobin Concent 32.6 32.0-36.0 g/dL Red Cell Distribution Width 14.3 11.8-14.3 % Platelet Count 169 140-450 10^3/uL Mean Platelet Volume 8.9 6.9-10.8 fL Neutrophils (%) (Auto) 41.9 37.0-80.0 % Lymphocytes (%) (Auto) 41.2 10.0-50.0 % Monocytes (%) (Auto) 15.3 H 0.0-12.0 % Eosinophils (%) (Auto) 1.2 0.0-7.0 % Basophils (%) (Auto) 0.4 0.0-2.0 % Neutrophils # (Auto) 1.7 1.6-8.6 10 ^3/uL Lymphocytes # (Auto) 1.7 0.4-5.4 10 ^3/uL Monocytes # (Auto) 0.6 0-1.3 10 ^3/uL Eosinophils # (Auto) 0 0-0.8 10 ^3/uL Basophils # (Auto) 0 0-0.2 10 ^3/uL Nucleated Red Blood Cells 0.0 % D-Dimer, Quantitative 0.25 0.0-0.49 mg/L FEU Sodium Level 137 136-145 mmol/L Potassium Level 5.7 *H 3.5-5.1 mmol/L Chloride Level 104 98-107 mmol/L Carbon Dioxide Level 24 20-31 mmol/L Anion Gap 9 5-15 Blood Urea Nitrogen 37 H 9-23 mg/dL Creatinine 1.84 H 0.550-1.02 mg/dL Glomerular Filtration Rate Calc 27 >90 mL/min BUN/Creatinine Ratio 20.1 H 10.0-20.0 Serum Glucose 382 H 74-106 mg/dL Calcium Level 9.6 8.7-10.4 mg/dL B-Type Natriuretic Peptide 1577.56 0-100 pg/mL X-Ray, Labs, Meds, VS Comment All studies performed the ED were evaluated by me personally. Urinalysis was pending at time of this note. Serum laboratories confirmed a mild anemia, mild hypokalemia but a significant acute CHF exacerbation. Patient is a [facility] patient and therefore, [facility] will be contacted and patient will be transferred for admission and further management. Spoke with [facility] and specifically, Dr. Armenta. Advised him of initial patient presentation as well as laboratories studies and medication dispensed. He agreed to accept the patient is a transfer for an acute CHF exacerbation. Authorization number [id number]. Time of 1ST Reevaluation: 21:34 Reevaluation 1ST: Improved Consultation: PCP Patient Education/Counseling: Diagnosis, Treatment Family Education/Counseling: Diagnosis, Treatment SEPSIS Sepsis Screen Date sepsis recognized/suspect: Jul 09, 2025 Time Sepsis recognized/suspect: 1837 Recent Procedure: No On Antibiotic Therapy: No Respiratory Rate >20: No Heart Rate >90: No Temp<36 C (96.8 F) or >38.3 C: No SBP <90 or MAP <65 mmHG: No New Acute Mental Status Change: No Is the patient on CPAP, BIPAP,: No Physician Orders Chest Portable (07/09/25 19:44) Urinalysis (07/09/25 19:44) Electrocardigram (07/09/25 19:44) Accucheck (07/09/25 19:44) Vital Signs Date Time Temp Pulse Resp B/P (MAP) Pulse Ox O2 Delivery O2 Flow Rate FiO2 07/09/25 21:44 82 07/09/25 18:37 98.3 71 20 146/69 97 98.3 Laboratory Tests Test 07/09/25 20:09 White Blood Count 4.1 10^3/uL (4.4-10.8) L Departure 1 Departure Time of Disposition: 21:35 Impression: Primary Impression: Acute exacerbation of CHF (congestive heart failure) Additional Impressions: Hyperkalemia Anemia Disposition: 02 SHORT TERM HOSPITAL Condition: Stable Discharged With: Self, Spouse Critical Care Note Critical Care Time?: No Stability Stability form required: No Heart Score Heart Score: Heart Score Response (Comments) Value History N/A 0 EKG N/A 0 Age N/A 0 Risk Factors N/A 0 Troponin N/A 0 Total 0 I personally scribed for ADIS JUAREZ PAC ([email or web address]) on 07/09/25 at 19:49. Electronically submitted by Nato Barboza ([email or web address]). ADIS JUAREZ PAC Jul 09, 2025 19:49
[2025-07-09 20:20] LABS: Hemoglobin 11.5 g/dL (12.2-16.2); Mean Corpuscular Hemoglobin 26.2 pg (28.0-32.0)
[2025-07-09 20:22] LABS: Hematocrit 35.3 % (36.0-46.0); Mean Corpuscular Volume 80.5 fL (80.0-100.0); Nucleated Red Blood Cells % 0.0 %
--- NOTE | 2025-07-09 20:27 | DVH ---
CHEST RADIOGRAPH Indication: Shortness of breath Technique: Single frontal view of the chest was obtained COMPARISON: XY CHEST PORTABLE on DOS: 12/11/24, XY CHEST PORTABLE on DOS: 08/07/24, XY CHEST PORTABLE on DOS: 04/08/24, XY CHEST PORTABLE on DOS: 01/03/24, XY CHEST PORTABLE on DOS: 10/23/23 FINDINGS: Lines and Tubes: None Lungs: Clear Pleura: No effusion. No pneumothorax. Cardiomediastinal contours: Unremarkable Bones: Unremarkable IMPRESSION: 1. No acute disease.
[2025-07-09 20:33] LABS: Chloride 104 mmol/L (98-107); Sodium 137 mmol/L (136-145)
[2025-07-09 20:34] LABS: Anion Gap 9 (5-15); Carbon Dioxide 24 mmol/L (20-31)
[2025-07-09 20:35] LABS: Calcium 9.6 mg/dL (8.7-10.4)
[2025-07-09 20:39] LABS: BUN/Creatinine Ratio 20.1 (10.0-20.0)
[2025-07-09 20:46] LABS: Potassium 5.7 mmol/L (3.5-5.1)
[2025-07-09 20:47] LABS: Blood Urea Nitrogen 37 mg/dL (9-23); Glucose 382 mg/dL (74-106)
[2025-07-09 22:31] LABS: Urine Protein, UAD TRACE (Negative)
[2025-07-09 22:45] VITALS: PULSE 76; RESP 14; O2SAT 98
[2025-07-09] MEDS: SODIUM ZIRCONIUM CYCL 10 GM PAK PO ONE (22:54)
[2025-07-09] MEDS: FUROSEMIDE 20 MG TAB PO ONE (22:54)
[2025-07-10 00:42] VITALS: BP 143/62; PULSE 78; RESP 19; TEMP 98; O2SAT 100
--- NOTE | 2025-07-10 19:17 | ECG ---
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
== END 2025-07-10 00:43 | disposition home or self-care (01) ==
LOC: ER 18:35
DX: I11.0 Hypertensive heart disease with heart failure (principal); I50.9 Heart failure, unspecified; E87.5 Hyperkalemia; E11.9 Type 2 diabetes mellitus without complications; D64.9 Anemia, unspecified; Z88.0 Allergy status to penicillin; Z88.2 Allergy status to sulfonamides; Z86.73 Personal history of transient ischemic attack (TIA), and cerebral infarction without residual deficits; Z79.899 Other long term (current) drug therapy; Z88.5 Allergy status to narcotic agent; Z90.710 Acquired absence of both cervix and uterus
CPT/HCPCS: 36415; 71045; 80048; 81001; 83880; 84484; 85025; 85379; 93005